=== PATIENT | female | born 1950 | race Two or more races ===

== ENCOUNTER 2024-05-09 10:49 | Inpatient (IN) | payer MEDICARE, MEDICAID, SELFPAY ==
[2024-05-09] VITALS (13 sets, daily range): BP systolic 135–175; BP diastolic 63–85; PULSE 81–95; RESP 20–27; TEMP 36.9–38; O2SAT 85–100; BMI 33.2; BMI 33.4
--- NOTE | 2024-05-09 11:04 | EDRME_ITS ---
Rapid Medical Screening Exam RME Arrival date/time: 05/09/24 10:49 74-year-old female with history of type 2 diabetes, hypertension, hyperlipidemia presents to the emergency room with a chief complaint of shortness of breath x 3 days I have greeted and performed a focused initial assessment of this patient. A co mprehensive ED assessment and evaluation of the patient, analysis of all test results, and completion of the medical decision making process will be conducted by additional ED providers. Chief Complaint: Shortness of Breath/Dyspnea Vital signs reviewed by provider: Yes
--- NOTE | 2024-05-09 11:04 | XR_ITS ---
Examination: PA lateral chest 2 views TECHNIQUE: Upright AP lateral chest 2 views Exam date and time: May 09, 2024 1118 hours Comparison April 30, 2022 INDICATIONS: Shortness breath chest pain beginning 3 days ago. FINDINGS: Moderate CHF Mild to moderate enlargement cardiac contour Prominent vascular congestion including central vascular engorgement Bilateral perihilar edema and likely superimposed pneumonia at the lung bases Moderate osteopenia IMPRESSION: Moderate CHF Suspicious for superimposed pneumonia at the lung bases
--- NOTE | 2024-05-09 11:04 | EKG_ITS ---
[facility] Test Date: 2024-05-09 Pat Name: FRANCIS DUTTONDepartment: Room: - Gender: Female Social Services Assistant: : 1950 Requested By: Rich Noriega Order Number: [id number] Reading MD: Rich Noriega Measurements Intervals [place] Rate: 86 P: 70 DE: 161 QRS: -67 QRSD: 118 T: 91 QT: 357 QTc: 428 Interpretive Statements SINUS RHYTHM WITH OCCASIONAL VENTRICULAR PREMATURE COMPLEXES LEFT AXIS DEVIATION [QRS AXIS < -30] ANTEROSEPTAL MYOCARDIAL INFARCTION , OF INDETERMINATE AGE [40+ ms Q WAVE IN V1-V4] Compared to ECG 04/30/2022 08:04:02 Ventricular premature complex(es) now present Left-axis deviation now present Left anterior fascicular block no longer present Myocardial infarct finding still present /store/S0/[id number]/ecg/[id number].pdf
[2024-05-09] MEDS: ALBUTEROL RT 2.5 MG/0.5 ML NEBU INH (11:35)
[2024-05-09] MEDS: SODIUM CHLORIDE RT SOL 0.9% 3 ML NEBU INH (11:36)
[2024-05-09 11:43] LABS: Lactate (Lactic Acid) 1.2 mMol/L (0.4-2.0)
[2024-05-09 11:53] LABS: Basophils % (Auto) 0 % (0-2.5); Eosinophils % (Auto) 0 % (0-10); Hematocrit 25.6 % (36.0-46.0); Hemoglobin 8.9 g/dL (12.0-16.0); Immature Granulocytes % (Auto) 1 % (0-0); Immature Granulocytes Auto 0.08 Thou/mm3 (0.00-0.00); Lymphocytes # (Auto) 0.6 Thou/mm3 (1.0-4.8); Lymphocytes % (Auto) 5 % (10-50); Mean Corpuscular HGB Conc 34.8 g/dl (31.0-37.0); Mean Corpuscular Hemoglobin 28.9 pg (25.0-35.0); Mean Corpuscular Volume 83 fL (80-100); Monocytes % (Auto) 8 % (0-12); Neutrophils # (Auto) 11.4 Thou/mm3 (1.8-7.7); Neutrophils % (Auto) 87 % (37-80); Nucleated Red Blood Cell % 0 /100 WBC (0); Platelet Count 225 Thou/mm3 (140-440); RDW Standard Deviation 42.3 fL (36.4-46.3); Red Blood Count 3.08 Miln/mm3 (4.00-5.20); White Blood Count 13.2 Thou/mm3 (3.6-11.0)
--- NOTE | 2024-05-09 11:54 | EDNOTE_ITS ---
ED General RME/HPI General Chief complaint: Shortness of Breath/Dyspnea Stated complaint: DYSPNEA SINCE YESTERDAY Time Seen by Provider: 05/09/24 11:49 Arrival date/time: 05/09/24 10:49 CC: Chest pain shortness of breath HPI ongoing for the past 3 days sent family over states the patient also had a fever the first day. Patient is mildly tachypneic denies a cough. Chest pain in center General Anterior. Nonradiating. RME / HPI RME / HPI narrative: 05/09/24 10:49 74-year-old female with history of type 2 diabetes, hypertension, hyperlipidemia presents to the emergency room with a chief complaint of shortness of breath x 3 days I have greeted and performed a focused initial assessment of this patient. A comprehensive ED assessment and evaluation of the patient, analysis of all test results, and completion of the medical decision making process will be conducted by additional ED providers. Related Data Home Medications ?Medication ?Instructions ?Recorded ?Confirmed empagliflozin 25 mg tablet 25 mg PO QDAY 04/30/22 11/0 04/01 (Jardiance) Previous Rx's ?Medication ?Instructions ?Recorded ferrous sulfate 325 mg (65 mg 325 mg PO QDAY #30 tabs 02/03/24 iron) tablet,delayed release amlodipine 10 mg tablet 10 mg PO QDAY #30 tabs 05/06 insulin detemir U-100 100 unit/mL 30 unit (0.3 mL) sub cut QDAY 30 05/06/24 subcutaneous solution (Levemir days #10 mL U-100 Insulin) linagliptin 5 mg tablet (Tradjenta) 5 mg PO QDAY #30 t abs 05/06/24 losartan 50 mg tablet 50 mg PO QDAY #30 tabs 05/06 metformin 1,000 mg tablet 1,000 mg PO BID 30 days #60 tabs 05/06/24 trazodone 50 mg tablet 50 mg PO HS PRN Pain #30 tab s 05/06/24 Allergies Allergy/AdvReac Type Severity Reaction Status Date / Time No Known Allergies Allergy Verified 05/09/24 10:52 Review of Systems Review of Systems Narrative Review of Systems: GEN: No fever, no chills, no weight loss EYES: No discharge, no visual changes, no pain HEENT: No ear pain, no congestion, no sore throat PULM: No shortness of breath, no cough, no congestion CV: No chest pain, no dyspnea on exertion, no palpitations GI: No nausea, no vomiting, no diarrhea, no pain, no constipation : No frequency, no urgency, no dysuria MUSC/SKEL: No joint pain, no back pain SKIN: No rash PSYCH: No hallucinations, no depression HEME/LYMPH: No easy bleeding or bruising tendencies NEURO: No weakness, no headache Past Medical History Past Medical History NEUROLOGIC: Negative Neurological Disorders CARDIAC: Positive Atherosclerotic Heart Disease and Hypertension; Negative Congestive Heart Failure RESPIRATORY: Negative Chronic Obstructive Pulmonary Disease (COPD) GASTROINTESTINAL: Negative Gastrointestinal Disorders or Colorectal Cancer GENITOURINARY: Negative Genitourinary Disorders or Renal Disease MUSCULOSKELETAL: Negative Musculoskeletal Disorders ENT: Positive Cataracts (tray.) ENDOCRINE: Positive Diabetes Mellitus Type 2; Negative Diabetes Mellitus Type 1 HEMATOLOGIC: Positive Anemia; Negative Blood Disorders OTHER HISTORY: Positive Autoimmune Disease; Negative Hospitalization, Down Syndrome, Developmental Delay, Shingles, Falls, Blood Transfusion Reaction, Chicken Pox, Cancer, Cervical Cancer, Colorectal Cancer or Lung Cancer Social History SMOKING STATUS: Never smoker SECOND HAND EXPOSURE: No SUBSTANCE USE: does not use ED Exam Narrative Physical exam: [General: In mild discomfort but not in any acute distress Head normocephalic HEENT: Eyes pupils are PERRLA EOMs are intact. Mouth pink dry membranes uvula is midline swallow symmetrical within acceptable limits Neck is supple nontender no JVD Chest equal chest rise nontender to palpation Respiratory: Clear to auscultation no wheezes crackles or rubs CV: Rate rhythm is regular no murmurs rubs or clicks Abdomen is distended secondary to body habitus soft nontender no masses positive bowel sounds all 4 quadrants Back: No CVA tenderness no spinous process tenderness from cervical spine thoracic and lumbar spine Skin: Intact no petechiae rash induration ulceration or crepitus Extremities: Moving all extremity against resistance cap refill less than 2 seconds neurosensory intact Neuro: Awake alert oriented x3 Glascow coma 15 no focal deficits] Course Quality Measures none Orders Category Date Time Status Bedside COVID-19 Antigen Test NOW Care 05/09/24 11:11 Active Bedside Influenza A&B Antigen Test NOW Care 05/09/24 11:11 Completed EKG (ED ONLY) *Do not use* NOW Care 05/09/24 11:04 Completed Insert IV NOW Care 05/09/24 11:37 Active EKG (ED Only) Stat Exams 05/09/24 11:04 Draft XR chest 2V Stat Exams 05/09/24 11:04 Completed B-Type Natriuretic Peptide Stat Lab 05/09/24 11:25 Completed Blood Culture (Lab) Stat Lab 05/09/24 11:19 Received CBC Stat Lab 05/09/24 11:25 Completed Comprehensive Metabolic Panel Stat Lab 05/09/24 11:25 Completed Lactate (Lactic Acid) Stat Lab 05/09/24 11:25 Completed Magnesium Stat Lab 05/09/24 11:25 Completed Partial Thromboplastin Time Stat Lab 05/09/24 11:25 Completed Procalcitonin Stat Lab 05/09/24 11:25 Completed Prothrombin Time with INR Stat Lab 05/09/24 11:25 Completed Troponin I Stat Lab 05/09/24 11:25 Completed Urinalysis Stat Lab 05/09/24 11:04 Ordered ALBUTEROL RT 0.5ml [Proventil Rt 0.5ml] Med 05/09/24 11:04 Discontinued 2.5 mg INH X1 ONE Sodium Chloride Rt Ana 0.9% [NS Rt Ana 0.9%] Med 05/09/24 11:04 Active 3 ml INH PRN PRN cefTRIAXone [Rocephin] 1,000 mg Med 05/09/24 12:38 Discontinued SODIUM CHLORIDE 0.9% (Popper) [Ns 0.9% (P)] 50 ml IV X1 Vital Signs Vital signs: Vital Signs Temperature 100.4 F 05/09/24 11:04 Pulse Rate 94 05/09/24 11:04 Respiratory Rate 24 H 05/09/24 11:04 Blood Pressure 175/63 H 05/09/24 11:04 Pulse Oximetry (%) 85 L 05/09/24 11:04 Oxygen Delivery Method Room Air 05/09/24 11:04 [facility] Patient data External records reviewed:: [facility] previous records and EMS form Clinical information provided by:: patient and EMS Social determinants that could affect healthcare access:: none Patient has the following chronic illnesses:: Diabetes hypertension hyperlipidemia How is presenting disease/condition affected by chronic disease/condition?: u neffected by Evaluation data The following diagnostics were reviewed and interpreted by me:: lab results, radiology exam(s) and EKG tracing(s) Lab and/or radiology exams considered but not ordered:: EKG performed at 1109 shows a ventricular rate of 89. Of a 161 QRS 118 QTc of 400 sinus rhythm left axis deviation. CBC shows a leukocytosis of 13.6 there is anemia of 8.9 and 25.6 respectively no thrombocytopenia Coags within acceptable limits CMP shows sodium 132 no other significant electrolyte imbalances other than elevated glucose of 184. No transaminitis or T. bili elevation BNP of 543. Lactic acid is negative Procalcitonin 1.03. Chest x-ray shows congestive heart failure with superimposed pneumonia. Interpretation Summary: Patient's oxygen saturation dropped to 8889% on room air after oxygen was turned off once turned back on patient promptly went to 96%. Patient continues to be remain mildly tachypneic but has no tachycardia. At this time the patient's case discussed with Dr. Zendejas resident for Dr. Hatfield because I feel this patient needs continued monitoring for diuresis and for treatment of pneumonia. The common of which I think the patient with discharge, would return in 8 to 12 hours with worsening symptoms. Dr. Zendejas is agreement with this plan. Medications Medications considered but not ordered:: None Medication administrations:: Medication Administration History Sodium Chloride (Sodium Chloride Rt Ana 0.9% 3 Ml Nebu) 3 ml INH PRN PRN PRN Reason: SOLN Stop: 06/08/24 11:03 Last Admin: 05/09/24 11:36 Dose: 3 ml Documented By: ESTELLA Discontinued Medications Albuterol (Albuterol Rt 2.5 Mg/0.5 Ml Nebu) 2.5 mg INH X1 ONE Stop: 05/09/24 11:05 Last Admin: 05/09/24 11:35 Dose: 2.5 mg Documented By: ESTELLA Ceftriaxone Sodium 1,000 mg/ (Sodium Chloride) 50 mls @ 100 mls/hr IV X1 ONE Stop: 05/09/24 13:07 Last Admin: 05/09/24 13:01 Dose: 100 mls/hr Documented By: CS None Consultations Consultation(s) initiated? (list below): No Diagnosis Differential Diagnosis ED Complaint MDM: ACS NE pneumonia CHF Most likely diagnosis given after review of the tests above:: CHF pneumonia Admission Indicated Admission indicated?: indicated Explain why admission is indicated or not indicated:: Further medical management Admission Request Was there a request for admission?: No Disposition Plan Disposition Plan: Admit Medical Decision Making Differential Diagnosis Differential Diagnosis: ACS NE pneumonia CHF Lab Data 05/09/24 11:25 05/09/24 11:25 Labs: Lab Results 05/09/24 Range/Units 11:25 WBC 13.2 H (3.6-11.0) Thou/mm3 RBC 3.08 L (4.00-5.20) Miln/mm3 Hgb 8.9 L (12.0-16.0) g/dL Hct 25.6 L (36.0-46.0) % MCV 83 (80-100) fL MCH 28.9 (25.0-35.0) pg MCHC 34.8 (31.0-37.0) g/dl RDW Std Deviation 42.3 (36.4-46.3) fL Plt Count 225 (140-440) Thou/mm3 Neut % (Auto) 87 H (37-80) % Lymph % (Auto) 5 L (10-50) % [place] % (Auto) 8 (0-12) % Eos % (Auto) 0 (0-10) % Baso % (Auto) 0 (0-2.5) % Neut # (Auto) 11.4 H (1.8-7.7) Thou/mm3 Lymph # (Auto) 0.6 L (1.0-4.8) Thou/mm3 [place] # (Auto) 1.0 H (0.0-0.8) Thou/mm3 Eos # (Auto) 0.0 (0.0-0.5) Thou/mm3 Baso # (Auto) 0.0 (0.0-0.2) Thou/mm3 Immature Gran # (Auto) 0.08 H (0.00-0.00) Thou/mm3 Absolute Nucleated RBC 0.00 (0.00-0.00) Thou/mm3 Immature Gran % 1 H (0-0) % Nucleated RBC % 0 (0) /100 WBC PT 11.4 (9.0-12.2) Seconds INR 1.0 (0.9-1.3) APTT 30.4 (22.0-36.0) Seconds Sodium 132 L (136-145) mMol/L Potassium 4.4 (3.4-5.1) mMol/L Chloride 103 (98-107) mMol/L Carbon Dioxide 20.1 (20.0-31.0) mMol/L Anion Gap 9 (7-16) BUN 23 (9-23) mg/dL Creatinine 1.0 (0.6-1.3) mg/dL Estim Creat Clear Calc 47.2 L (>60) mL/min eGFR 59 L (60 - ) See Note BUN/Creatinine Ratio 23 H (12-20) Ratio Glucose 184 H (74-106) mg/dL Calculated Osmolality 273 L (275-295) Lactic Acid 1.2 (0.4-2.0) mMol/L Calcium 9.5 (8.3-10.6) mg/dL Corrected Calcium 9.5 (8.5-10.1) mg/dL Magnesium 2.0 (1.6-2.6) mg/dL Total Bilirubin 1.0 (0.3-1.2) mg/dL AST < 8 (0-34) U/L ALT 15 (10-49) U/L Alkaline Phosphatase 58 (46-116) U/L Troponin I < 0.020 (0.0-0.045) ng/mL B-Natriuretic Peptide 543 H* (0-100) pg/mL Total Protein 7.4 (5.7-8.2) gm/dL Albumin 4.0 (3.4-4.8) gm/dL Globulin 3.4 (2.3-3.5) gm/dL Albumin/Globulin Ratio 1.2 (1.2-2.2) Procalcitonin 1.03 H (0.0-0.49) ng/ml Discharge Plan Plan Patient Disposition: Other Care w/in Hosp ([facility]) Prescriptions/Referrals Prescriptions/Med Rec: No Action ferrous sulfate 325 mg (65 mg iron) tablet,delayed release (DR/EC) 325 mg PO QDAY Qty: 30 0RF Levemir U-100 Insulin 100 unit/mL solution 30 unit SUBCUT QDAY 30 Days Qty: 10 2RF Rx Instructions: Deliver to [facility] in [place] amlodipine 10 mg tablet 10 mg PO QDAY Qty: 30 0RF Tradjenta 5 mg tablet 5 mg PO QDAY Qty: 30 0RF losartan 50 mg tablet 50 mg PO QDAY Qty: 30 0RF trazodone 50 mg tablet 50 mg PO HS PRN (Reason: Pain) Qty: 30 0RF metformin 1,000 mg tablet 1,000 mg PO BID 30 Days Qty: 60 0RF Jardiance 25 mg Tablet 25 mg PO QDAY Referrals: No Primary/Family,Physician [Primary Care Provider] - In 1 week Problem List Clinical Impression: Shortness of breath, Pneumonia, CHF (congestive heart failure) Patient/Caregiver Discharge Instructions Print Language: Kiswahili Stand Alone Forms: Zulma Award Info., Patient Portal Info Letter PA/STAGE SETTINGS PAINTER Supervising Physician PA/STAGE SETTINGS PAINTER Supervising Physician: Elkin Hardin ENP
[2024-05-09 12:05] LABS: Partial Thromboplastin Time 30.4 Seconds (22.0-36.0); Prothrombin Time 11.4 Seconds (9.0-12.2)
[2024-05-09 12:11] LABS: B-Type Natriuretic Peptide 543 pg/mL (0-100)
[2024-05-09 12:19] LABS: Alanine Aminotransferase 15 U/L (10-49); Albumin/Globulin Ratio 1.2 (1.2-2.2); Alkaline Phosphatase 58 U/L (46-116); Anion Gap 9 (7-16); Aspartate Amino Transferase < 8 U/L (0-34); BUN/Creatinine Ratio 23 Ratio (12-20); Blood Urea Nitrogen 23 mg/dL (9-23); Calcium 9.5 mg/dL (8.3-10.6); Calcium (Corrected) 9.5 mg/dL (8.5-10.1); Carbon Dioxide 20.1 mMol/L (20.0-31.0); Chloride 103 mMol/L (98-107); Estimated Creatinine Clearance 47.2 mL/min (>60); Globulin 3.4 gm/dL (2.3-3.5); Glucose 184 mg/dL (74-106); Osmolality,Calculated 273 (275-295); Potassium 4.4 mMol/L (3.4-5.1); Procalcitonin 1.03 ng/ml (0.0-0.49); Sodium 132 mMol/L (136-145); Total Protein 7.4 gm/dL (5.7-8.2); Troponin I < 0.020 ng/mL (0.0-0.045); eGFR 59 See Note
[2024-05-09] MEDS: cefTRIAXone 1,000 MG in SODIUM CHLORIDE 0.9% (Popper) 50 ML 100 MG IV (13:01)
[2024-05-09] MEDS: ALBUTEROL/IPRATROPIUM (Duoneb) RT SOL 3 ML NEBU INH ×3 (14:32→23:49)
--- NOTE | 2024-05-09 15:42 | ESHP_ITS ---
<Statement entered by Matthew Reyna MD - 05/14/24 21:52> I reviewed above note and agree with findings and plans. I have also personally examined the patient with medicine team and went over assessment and plan with medical team including internet marketing assistant and resident physician. <Statement entered by Gregoria Donahue MD - 05/10/24 00:48> Patient was seen and examined by me personally. I have directly supervised and reviewed the above documentation by the team resident and agree with its findings with any exceptions or additional findings as below. Plan of care was discussed with the attending, Dr. Reyna. Patient is a 74-year-old female with past medical history of hypertension, type 2 diabetes, hyperlipidemia, and iron deficiency anemia who presented to the ED on 05/10/2024 due to difficulty breathing for the past 3 days. Patient endorses pleuritic chest pain and cough as well as orthopnea. There is no documented history of CHF and in the chart last echo was done 2 years ago which showed normal function with EF of 55-60% but moderate pulmonary hypertension. BNP is elevated today at 543 and CXR is indicative of pulmonary vascular congestion as well as superimposed pneumonia. Procal is elevated at 1.03, WBC 13. Will order echo, have strict I&Os, fluid restriction of 1500 ml. Start IV ceftriaxone and azithromycin for community acquired pneumonia as well as DuoNebs. Will start PO Lasix starting at 20 mg daily. Gregoria Donahue, PGY-2 Documentation for date of: 05/09/24 HPI History of Present Illness Chief complaint: shortness of breath for 3 days History of present illness: The patient is a 74-year-old female with a previous medical history of hypertension, type 2 diabetes, hyperlipidemia, iron deficiency anemia. Presented to the emergency room with chief complaint of shortness of breath and cough for 3 days. She reported that it is especially hard for her to breathe when lying down, But she experienced shortness of breath in all position, non- irradiating chest pain exacerbaion with breathing. She denies headache, abdominal pain, sick contacts, heart diseases, heart surgery and following up with email marketing executive. In the ED she was tachypneic, blood pressure 175/63, saturating well on 4 L room air. Labs showed leukocytosis 13.2, hemoglobin 8.9, creatinine 1.0, GFR 59, BNP 543, troponin I negative, procalcitonin 1.03. Chest x-ray showed moderate CHF, suspicion for superimposed pneumonia. EKG unremarkable, sinus rhythm. She was started on ceftriaxone and albuterol inhalations. She was admitted for acute hypoxic respiratory failure due to CAP versus heart failure exacerbation. Surgical history: Denies recent surgeries Allergies: Denies allergies Review of Systems Review of Systems Systems Reviewed: All systems reviewed, normal except as documented Narrative Review of Systems: GEN: No fever, no chills, no weight loss EYES: No discharge, no visual changes, no pain HEENT: No ear pain, no congestion, no sore throat PULM: Reports shortness of breath, cough, no congestion CV: Reports chest pain, no dyspnea on exertion, no palpitations GI: No nausea, no vomiting, no diarrhea, no pain, no constipation : No frequency, no urgency, no dysuria MUSC/SKEL: No joint pain, reports back pain SKIN: No rash PSYCH: No hallucinations, no depression HEME/LYMPH: No easy bleeding or bruising tendencies NEURO: No weakness, no headache Past Medical History Past Medical History NEUROLOGIC: Negative Neurological Disorders CARDIAC: Positive Atherosclerotic Heart Disease and Hypertension; Negative Congestive Heart Failure RESPIRATORY: Negative Chronic Obstructive Pulmonary Disease (COPD) GASTROINTESTINAL: Negative Gastrointestinal Disorders or Colorectal Cancer GENITOURINARY: Negative Genitourinary Disorders or Renal Disease MUSCULOSKELETAL: Negative Musculoskeletal Disorders ENT: Positive Cataracts (tray.) ENDOCRINE: Positive Diabetes Mellitus Type 2; Negative Diabetes Mellitus Type 1 HEMATOLOGIC: Positive Anemia; Negative Blood Disorders OTHER HISTORY: Positive Autoimmune Disease; Negative Hospitalization, Down Syndrome, Developmental Delay, Shingles, Falls, Blood Transfusion Reaction, Chicken Pox, Cancer, Cervical Cancer, Colorectal Cancer or Lung Cancer Social History SMOKING STATUS: Never smoker SECOND HAND EXPOSURE: No SUBSTANCE USE: does not use Exam Vital Signs Temp Pulse Resp BP Pulse Ox O2 Del Method O2 Flow Rate 98.4 F 81 20 135/76 H 93 L Room Air 4 05/09/24 14:23 05/09/24 15:00 05/09/24 15:00 05/09/24 14:23 05/09/24 15:00 05/09/24 14:23 05/09/24 15:00 Narrative Exam Physical Exam General: Awake, tachypneic. Able to say full sentences. Conversational and non- toxic appearing. HEENT: Normocephalic, atraumatic, mucous membranes moist. Heart: Regular rate and rhythm, no murmurs. Lungs: Diffuse rhonchi bilaterally. Abdomen: Soft, nondistended, nontender, positive bowel sounds. ?No guarding or rebound tenderness. Neurologic: Alert and oriented x3, no gross neurological deficit, and patient able to move all 4 extremities. Extremities: No edema. Skin: No rash or ecchymoses. Results: Labs 05/09/24 11:25 05/09/24 11:25 Labs: Short CBC 05/09/24 Range/Units 11:25 WBC 13.2 H (3.6-11.0) Thou/mm3 Hgb 8.9 L (12.0-16.0) g/dL Hct 25.6 L (36.0-46.0) % Plt Count 225 (140-440) Thou/mm3 BMP 05/09/24 11:25 Sodium 132 L Potassium 4.4 Chloride 103 Carbon Dioxide 20.1 BUN 23 Creatinine 1.0 Glucose 184 H Calcium 9.5 Cardiac Enzymes 05/09/24 Range/Units 11:25 Troponin I < 0.020 (0.0-0.045) ng/mL Liver Function 05/09/24 Range/Units 11:25 Total Bilirubin 1.0 (0.3-1.2) mg/dL AST < 8 (0-34) U/L ALT 15 (10-49) U/L Alkaline Phosphatase 58 (46-116) U/L Albumin 4.0 (3.4-4.8) gm/dL Quality Measures Quality Measures VTE prophylaxis Advance care planning discussed with:: patient and child Medications Home Medications and Allergies Home Medications ?Medication ?Instructions ?Recorded ?Confirmed ?Type empagliflozin 25 mg tablet 25 mg PO QDAY 04/30/22 1104/01 History (Jardiance) Allergies Allergy/AdvReac Type Severity Reaction Status Date / Time No Known Allergies Allergy Verified 05/09/24 10:52 Visit Medications Acetaminophen (Acetaminophen 325 Mg Tablet) 650 mg PO Q6H PRN PRN Reason: Fever >100.3 or pain 1-3 Stop: 06/08/24 14:20 Albuterol/Ipratropium (Albuterol/Ipratropium (Duoneb) Rt Ana 3 Ml Nebu) 3 ml INH Q4HRRT SAVANNA Stop: 06/08/24 14:59 Last Admin: 05/09/24 14:32 Dose: 3 ml Dextrose (Dextrose 50%-Water Inj 50 Ml Syringe) 25 ml IV Q15MIN PRN PRN Reason: BG 50-70 responsive npo pt Stop: 06/08/24 15:36 Dextrose (Dextrose 50%-Water Inj 50 Ml Syringe) 50 ml IV Q15MIN PRN PRN Reason: BG <50 OR BG <70 & pt unresponsive Stop: 06/08/24 15:36 Enoxaparin Sodium (Enoxaparin Sod Inj 40 Mg/0.4 Ml Syringe) 40 mg SC QDAY SAVANNA Stop: 05/24/24 08:59 Furosemide (Furosemide 20 Mg Tablet) 20 mg PO QAM [facility] Stop: 06/08/24 14:29 Glucagon (Glucagon Inj 1 Mg Vial) 1 mg IM Q15MIN PRN PRN Reason: BG <70, and no IV access Azithromycin 500 mg/ Sodium (Chloride) 250 mls @ 250 mls/hr IV QDAY [facility] Stop: 05/17/24 08:59 Ceftriaxone Sodium 1,000 mg/ (Sodium Chloride) 50 mls @ 100 mls/hr IV QDAY SAVANNA Stop: 05/17/24 08:59 Azithromycin 500 mg/ Sodium (Chloride) 250 mls @ 250 mls/hr IV X1 ONE Stop: 05/09/24 15:44 Insulin Human Lispro (Insulin Lispro (Admelog) 1 Unit/0.01 Ml Unit) 0 unit SC AC [facility]; Protocol Stop: 06/08/24 16:59 Ondansetron HCl (Ondansetron Inj 2 Mg/Ml Inj 2 Ml) 4 mg IV Q6H PRN; Protocol PRN Reason: NAUSEA OR VOMITING Stop: 06/08/24 14:20 Oxycodone/Acetaminophen (Oxycodone/Apap 5/325 Tablet) 1 tab PO Q6H PRN PRN Reason: PAIN SCALE 4-6 (Moderate Stop: 05/14/24 14:20 Sennosides (Senna Tablet) 1 tab PO QDAY PRN; Protocol PRN Reason: constipation Stop: 06/08/24 14:20 Sodium Chloride (Sodium Chloride Rt Ana 0.9% 3 Ml Nebu) 3 ml INH PRN PRN PRN Reason: SOLN Stop: 06/08/24 11:03 Last Admin: 05/09/24 11:36 Dose: 3 ml Discontinued Medications Albuterol (Albuterol Rt 2.5 Mg/0.5 Ml Nebu) 2.5 mg INH X1 ONE Stop: 05/09/24 11:05 Last Admin: 05/09/24 11:35 Dose: 2.5 mg Ceftriaxone Sodium 1,000 mg/ (Sodium Chloride) 50 mls @ 100 mls/hr IV X1 ONE Stop: 05/09/24 13:07 Last Admin: 05/09/24 13:01 Dose: 100 mls/hr Ceftriaxone Sodium 1,000 mg/ (Sodium Chloride) 50 mls @ 100 mls/hr IV QDAY SAVANNA Stop: 05/16/24 14:30 Assessment & Plan Plan The patient is a 74-year-old female with a previous medical history of hypertension, type 2 diabetes, hyperlipidemia, iron deficiency anemia. Presented to the emergency room with chief complaint of shortness of breath and cough for 3 days. She was admitted for AHRF CAP vs CHF exacerbation. #Acute hypoxic respiratory failure #Community-acquired pneumonia versus CHF exacerbation Patient reports feeling short of breath for 3 days. CXR showed signs of CHF and pneumonia. ProCal 1.03. EKG unremarkable and troponin I negative. Plan: ?Ceftriaxone 1 g daily [05/09?current] ? Azithromycin 500 mg daily [05/09?current] ? DuoNeb inhalations every 6 hours as needed ? Furosemide 20 mg p.o. daily ? Strict I's and O's ?Fluid restriction 1500 cc daily ?Echo ordered #Chronic iron deficiency anemia Plan: - monitor daily CBC - transfuse if Hgb <7 - follow-up outpatient #T2DM Plan: - home oral medication ore on hold - ISS with Accuchecks #Hypertension - BP medications on hold for now #Lower back pain Plan: - pain control as needed Health maintenance: FEN: cardiac diet with fluid restriction DVT prophylaxis: lovenox sc GI prophylaxis: none Dispo: med tele CODE STATUS: Full code Plan of care discussed with attending Dr. Reyna, PGY-[address] Donahue and PGY-[address] Gaxiola. Aida Esparza MD, PGY 1.
--- NOTE | 2024-05-09 16:24 | PC.SS ---
Initial assessment: this is 74 year old female who comes from home. Patient appeared alert and oriented to person, place and situation. Patient is [place] speaking. The patient was able to confirm home demographic information. Patient reports she lives at home, alone. The patient assigned her daughter, Gypsy Zayas as her emergency contact. The patient informs prior to the weekend she was independent with ADL's. The patient denies use of DME in the home. Patient receiving oxygen in the ED, however denies having home oxygen. Patient reports being followed by Dr. Ivonne Briseno for primary care in [place]. Patient reports being diabetic. The patient would like to return home upon discharge. Patient informs she may need transportation arranged for her upon discharge. D/c plan: Home Next of kin: daughterGypsy
--- NOTE | 2024-05-09 16:41 | PC.RT ---
Pt had increase WOB and SOB. Could not collect sputum at the time.
[2024-05-09] MEDS: Furosemide 20 MG TABLET PO (18:04)
[2024-05-09] MEDS: AZITHROMYCIN INJ 500 MG in SODIUM CHLORIDE 0.9% 250 ML 250 ML 250 MG IV (18:04)
[2024-05-09] MEDS: INSULIN LISPRO (AdmeLOG) 1 UNIT/0.01 ML UNIT SC (18:04)
[2024-05-10] VITALS (20 sets, daily range): BP systolic 134–169; BP diastolic 67–93; PULSE 76–106; RESP 18–32; TEMP 36.4–37.3; O2SAT 91–100
[2024-05-10] MEDS: MELATONIN 3 MG TABLET PO ×2 (01:18→21:24)
[2024-05-10] MEDS: FUROSEMIDE INJ 10 MG/ML 4ML VIAL 40 MG IVP ×2 (01:41→17:22)
[2024-05-10] MEDS: ALBUTEROL/IPRATROPIUM (Duoneb) RT SOL 3 ML NEBU INH ×6 (02:56→22:04)
[2024-05-10] MEDS: ACETAMINOPHEN 325 MG TABLET 650 MG PO (03:22)
--- NOTE | 2024-05-10 03:28 | PC.NURSE ---
accessed pt's chart to assist main RN.
--- NOTE | 2024-05-10 04:21 | PC.NURSE ---
Dr person notified of pt complaint of headache, sweatyness, thirstyness, and BS 227. No new orders at this time.
[2024-05-10 04:23] LABS: Base Excess -1 (-3-3); HCO3 23 mEq/L (20-26); Inspired Oxygen, FIO2 75 %; O2 Saturation 94 % (91-98); PCO2 32 mmHg (32.0-48.0); PO2 64 mmHg (83-108); pH, Arterial 7.46 (7.35-7.45)
[2024-05-10 04:25] LABS: Allen Test Performed/OK; Puncture Site Right Radial
[2024-05-10 05:08] LABS: Lactate (Lactic Acid) 0.8 mMol/L (0.4-2.0)
[2024-05-10 05:21] LABS: Basophils % (Auto) 0 % (0-2.5); Eosinophils % (Auto) 0 % (0-10); Hematocrit 23.5 % (36.0-46.0); Immature Granulocytes % (Auto) 1 % (0-0); Immature Granulocytes Auto 0.05 Thou/mm3 (0.00-0.00); Lymphocytes # (Auto) 0.4 Thou/mm3 (1.0-4.8); Lymphocytes % (Auto) 4 % (10-50); Mean Corpuscular Hemoglobin 28.6 pg (25.0-35.0); Mean Corpuscular Volume 84 fL (80-100); Monocytes # (Auto) 0.9 Thou/mm3 (0.0-0.8); Monocytes % (Auto) 9 % (0-12); Neutrophils # (Auto) 8.9 Thou/mm3 (1.8-7.7); Neutrophils % (Auto) 87 % (37-80); Nucleated Red Blood Cell % 0 /100 WBC (0); Platelet Count 231 Thou/mm3 (140-440); White Blood Count 10.2 Thou/mm3 (3.6-11.0)
[2024-05-10 05:46] LABS: Collection Type, Urine Clean Catch; Squamous Epithelial Cell,Urine 0 /hpf (0-5)
[2024-05-10 05:50] LABS: Alanine Aminotransferase 14 U/L (10-49); Albumin, Serum 3.8 gm/dL (3.4-4.8); Albumin/Globulin Ratio 1.2 (1.2-2.2); Alkaline Phosphatase 60 U/L (46-116); Anion Gap 10 (7-16); Aspartate Amino Transferase 14 U/L (0-34); BUN/Creatinine Ratio 22 Ratio (12-20); Bilirubin,Total 0.8 mg/dL (0.3-1.2); Blood Urea Nitrogen 22 mg/dL (9-23); Calcium 9.1 mg/dL (8.3-10.6); Calcium (Corrected) 9.3 mg/dL (8.5-10.1); Carbon Dioxide 21.1 mMol/L (20.0-31.0); Chloride 105 mMol/L (98-107); Estimated Creatinine Clearance 47.4 mL/min (>60); Globulin 3.2 gm/dL (2.3-3.5); Glucose 214 mg/dL (74-106); Osmolality,Calculated 281 (275-295); Phosphorous 2.9 mg/dL (2.4-5.1); Sodium 136 mMol/L (136-145); eGFR 59 See Note
[2024-05-10 06:18] LABS: Bilirubin,Urine Negative (Negative); Blood,Urine Negative (Negative); Clarity,Urine Clear (Clear/Hazy); Color,Urine Lt-Yellow (Lt Yel-Yel); Glucose, Urine 4+ (Negative); Ketones,Urine Negative (Negative); Leukocyte Esterase,Urine Negative (Negative); Nitrite,Urine Negative (Negative); PH,Urine 5.5 (5.0-7.0); Protein,Urine 1+ (Neg - Trace); RBC,Urine 1 /hpf (0-3); Specific Gravity,Urine 1.011 (1.001-1.035); Urobilinogen,Urine Negative mg/dL (0.0-1.0); WBC,Urine < 1 /hpf (0-5)
[2024-05-10] MEDS: INSULIN LISPRO (AdmeLOG) 1 UNIT/0.01 ML UNIT SC ×3 (07:39→16:24)
--- NOTE | 2024-05-10 08:29 | XR_ITS ---
Examination: AP chest single view Technique one AP portable upright chest single view Exam date and time: 2024 0903 hours Comparison May 09, 2024 INDICATIONS: Hypoxia today. FINDINGS: Prominent bilateral pneumonia again noted At least mild associated heart failure with cardiomegaly and prominent vascular congestion Significant osteopenia IMPRESSION: Prominent bilateral pneumonia At least mild associated heart failure
[2024-05-10] MEDS: ENOXAPARIN SOD INJ 40 MG/0.4 ML SYRINGE SC (08:39)
[2024-05-10] MEDS: cefTRIAXone 1,000 MG in SODIUM CHLORIDE 0.9% (Popper) 50 ML 100 MG IV (08:39)
[2024-05-10] MEDS: Furosemide 40 MG TABLET PO (08:39)
--- NOTE | 2024-05-10 10:39 | PC.PT ---
Attempt to initiate PT evaluation at 1030. Patient was switched to HFNC this morning. Patient is not medically stable to do Physical Therapy today. Will try tomorrow. RN made aware.
[2024-05-10] MEDS: PIPER/TAZO INJ 3.375 GM in SODIUM CHLORIDE 0.9% (Popper) 50 ML IV ×2 (11:11→21:24)
[2024-05-10] MEDS: VANCOMYCIN/D5W 1,250 MG IVPB 250 ML 120 MG IV (11:11)
[2024-05-10 11:22] LABS: Base Excess 0 (-3-3); HCO3 24 mEq/L (20-26); Inspired Oxygen, FIO2 100 %; O2 Saturation 99 % (91-98); PCO2 35 mmHg (32.0-48.0); PO2 102 mmHg (83-108); Puncture Site Right Radial; pH, Arterial 7.44 (7.35-7.45)
[2024-05-10 11:23] LABS: Allen Test Performed/OK
[2024-05-10] MEDS: KETOROLAC INJ 30 MG/ML VIAL 15 MG IVP (12:38)
--- NOTE | 2024-05-10 12:55 | ESPR_ITS ---
<Statement entered by Gregoria Donahue MD - 05/10/24 23:54> Patient was seen and examined by me personally. I have directly supervised and reviewed documentation by the team resident and agree with its findings with any exceptions or additional findings as below. Plan of care was discussed with the attending, Dr. Ambrosio. Overnight, the patient's oxygen requirements increased significantly, requiring Hi-Flow at 29L and 85% FiO2 at first to maintain saturation >90. She was given Lasix 40 mg IV by night team. ABG was normal pH but showed mild hypoxia. This morning patient was examined, she was awake however appeared short of breath. Repeat CXR this morning showed worsening bilateral infiltrates suggestive of a pulmonary edema. Therefore patient was started on BiPAP and Lasix dose was increased to 40 mg BID. She is continuing on strict I&Os and fluid restriction 1500 ml. Preliminary report from technical rep showed normal EF but increased RVSP of 66 and signs of pulmonary hypertension. Patient will receive break from BiPAP and able to resume dinner, however will have BiPAP available prn over night. Patient updates were signed out to the night team who will continue to closely follow. Gregoria Donahue, PGY-2 Documentation for date of: 05/10/24 Subjective Subjective Interval history: Patient was seen and examined by the bedside. Overnight had an episode of respiratory distress, was saturating in the low 90s and was switched to the high flow nasal cannula, settings of 22 L at FiO2 75%. ABGs done at that time showed signs of acute hypoxia. She was also given furosemide 40 mg once IV. Urine output was 0.5 L. Today in the a.m. she continues to have respiratory distress, tachypneic, saturated in the low 90s. She was switched to BiPAP, Lasix was increased to 40 mg twice daily. Preliminary echo study showed RVSP of 66 and signs of pulmonary hypertension. Repeat ABG was normal and was done on 100% FiO2. Exam Vital Signs Temp Pulse Resp BP Pulse Ox O2 Del Method O2 Flow Rate 98.0 F 106 H 32 H 134/72 H 91 L High Flow Nasal Cannula 05/10/24 07:37 05/10/24 10:37 05/10/24 10:37 05/10/24 08:39 05/10/24 10:37 05/10/24 07:37 05/10/24 10:37 FiO2 75 05/10/24 10:37 Narrative Exam Gen: Appears in moderate respiratory distress, able to have conversation, tachypneic. HEENT: NCAT, PERRLA, EOMI, MMM, anicteric conjunctivae. CVS: normal S1 and S2. RRR. No M/R/G. Resp: Bilateral mild rhonchi. Abd: soft, non-tender, non-distended. BS+ in all 4 quadrants. MSK: Good ROM in BUE & BLE. 1+ pitting ankle edema, no rash. Neuro: CN II-XII grossly intact. Strength 5/5 in BUE & BLE. Alert and oriented x3. Psych: appropriate mood and affect. Objective Labs 05/10/24 04:34 05/10/24 04:34 Labs: Laboratory Results - last 24 hr 05/10/24 05/10/24 05/10/24 04:16 04:34 04:45 WBC 10.2 RBC 2.80 L Hgb 8.0 L Hct 23.5 L MCV 84 MCH 28.6 MCHC 34.0 RDW Std Deviation 43.0 Plt Count 231 Neut % (Auto) 87 H Lymph % (Auto) 4 L Eaton % (Auto) 9 Eos % (Auto) 0 Baso % (Auto) 0 Neut # (Auto) 8.9 H Lymph # (Auto) 0.4 L Eaton # (Auto) 0.9 H Eos # (Auto) 0.0 Baso # (Auto) 0.0 Immature Gran # (Auto) 0.05 H Absolute Nucleated RBC 0.00 Immature Gran % 1 H Nucleated RBC % 0 Puncture Site Right Radial ABG pH 7.46 H ABG pCO2 32 ABG pO2 64 L ABG HCO3 23 ABG O2 Saturation 94 ABG Base Excess -1 FiO2 75 Sodium 136 Potassium 4.0 Chloride 105 Carbon Dioxide 21.1 Anion Gap 10 BUN 22 Creatinine 1.0 Estim Creat Clear Calc 47.4 L eGFR 59 L BUN/Creatinine Ratio 22 H Glucose 214 H Calculated Osmolality 281 Lactic Acid 0.8 Calcium 9.1 Corrected Calcium 9.3 Phosphorus 2.9 Magnesium 2.0 Total Bilirubin 0.8 AST 14 ALT 14 Alkaline Phosphatase 60 Total Protein 7.0 Albumin 3.8 Globulin 3.2 Albumin/Globulin Ratio 1.2 Ur Collection Type Clean Catch Urine Color Lt-Yellow Urine Clarity Clear Urine pH 5.5 Ur Specific Raymond 1.011 Urine Protein 1+ A Urine Glucose (UA) 4+ A Urine Ketones Negative Urine Blood Negative Urine Nitrite Negative Urine Bilirubin Negative Urine Urobilinogen (Auto) Negative Ur Leukocyte Esterase Negative Urine RBC 1 Urine WBC < 1 Ur Squamous Epith Cells 0 Urine Bacteria None 05/10/24 11:05 WBC RBC Hgb Hct MCV MCH MCHC RDW Std Deviation Plt Count Neut % (Auto) Lymph % (Auto) Eaton % (Auto) Eos % (Auto) Baso % (Auto) Neut # (Auto) Lymph # (Auto) Eaton # (Auto) Eos # (Auto) Baso # (Auto) Immature Gran # (Auto) Absolute Nucleated RBC Immature Gran % Nucleated RBC % Puncture Site Right Radial ABG pH 7.44 ABG pCO2 35 ABG pO2 102 D ABG HCO3 24 ABG O2 Saturation 99 H ABG Base Excess 0 FiO2 100 Sodium Potassium Chloride Carbon Dioxide Anion Gap BUN Creatinine Estim Creat Clear Calc eGFR BUN/Creatinine Ratio Glucose Calculated Osmolality Lactic Acid Calcium Corrected Calcium Phosphorus Magnesium Total Bilirubin AST ALT Alkaline Phosphatase Total Protein Albumin Globulin Albumin/Globulin Ratio Ur Collection Type Urine Color Urine Clarity Urine pH Ur Specific Raymond Urine Protein Urine Glucose (UA) Urine Ketones Urine Blood Urine Nitrite Urine Bilirubin Urine Urobilinogen (Auto) Ur Leukocyte Esterase Urine RBC Urine WBC Ur Squamous Epith Cells Urine Bacteria ABG Interpretation ABG results: 05/10/24 05/10/24 04:16 11:05 ABG pH 7.46 H 7.44 ABG pCO2 32 35 ABG pO2 64 L 102 D ABG HCO3 23 24 ABG O2 Saturation 94 99 H ABG Base Excess -1 0 Quality Measures Quality Measures VTE prophylaxis Advance care planning discussed with:: patient and child Assessment & Plan Assessment Current Active Medications: Generic Name Dose Route Start Last Admin Trade Name Freq PRN Reason Stop Dose Admin Acetaminophen 650 mg 05/09/24 14:21 05/10/24 03:22 Acetaminophen 325 Mg Tablet PO 06/08/24 14:20 650 mg Q6H PRN Administration Fever >100.3 or pain 1-3 Protocol Albuterol/Ipratropium 3 ml 05/09/24 15:00 05/10/24 10:22 Albuterol/Ipratropium (Duoneb) Rt Ana 3 Ml Nebu INH 06/08/24 14:59 3 ml Q4HRRT SAVANNA Administration Dextrose 25 ml 05/09/24 15:37 Dextrose 50%-Water Inj 50 Ml Syringe IV 06/08/24 15:36 Q15MIN PRN BG 50-70 responsive npo pt Dextrose 50 ml 05/09/24 15:37 Dextrose 50%-Water Inj 50 Ml Syringe IV 06/08/24 15:36 Q15MIN PRN BG <50 OR BG <70 & pt unresponsive Enoxaparin Sodium 40 mg 05/10/24 09:00 05/10/24 08:39 Enoxaparin Sod Inj 40 Mg/0.4 Ml Syringe SC 05/24/24 08:59 40 mg QDAY SAVANNA Administration Furosemide 40 mg 05/10/24 18:00 Furosemide Inj 10 Mg/Ml 4ml Vial IVP 06/09/24 17:59 BIDD SAVANNA Glucagon 1 mg 05/09/24 15:37 Glucagon Inj 1 Mg Vial IM Q15MIN PRN BG <70, and no IV access Azithromycin 500 mg/ Sodium 250 mls @ 250 mls/hr 05/09/24 17:45 05/09/24 18:04 Chloride IV 05/16/24 17:44 250 mls/hr QDAY@2100 SAVANNA Administration Piperacillin Sod/Tazobactam 50 mls @ 12.5 mls/hr 05/10/24 22:00 Sod 3.375 gm/ Sodium Chloride IV 05/17/24 21:59 Q8HR SAVANNA Vancomycin/Sodium Chloride 200 mls @ 120 mls/hr 05/11/24 10:00 Vancomycin/Ns 1 Gm Ivpb IV 05/18/24 09:59 Q24H [facility] Insulin Human Lispro 0 unit 05/09/24 17:00 05/10/24 11:36 Insulin Lispro (Admelog) 1 Unit/0.01 Ml Unit SC 06/08/24 16:59 4 unit AC SAVANNA Administration Protocol Ketorolac Tromethamine 15 mg 05/10/24 12:22 05/10/24 12:38 Ketorolac Inj 30 Mg/Ml Vial IVP 05/15/24 12:21 15 mg Q6HR PRN Administration Pain 1-10 Melatonin 3 mg 05/10/24 00:55 05/10/24 01:18 Melatonin 3 Mg Tablet PO 06/09/24 00:54 3 mg HS SAVANNA Administration Ondansetron HCl 4 mg 05/09/24 14:21 Ondansetron Inj 2 Mg/Ml Inj 2 Ml IV 06/08/24 14:20 Q6H PRN NAUSEA OR VOMITING Protocol Oxycodone/Acetaminophen 1 tab 05/09/24 14:21 Oxycodone/Apap 5/325 Tablet PO 05/14/24 14:20 Q6H PRN PAIN SCALE 4-6 (Moderate Protocol Pharmacy Consult 1 each 05/10/24 10:27 Vancomycin Pharmacy To Dose 1 Each Each IV 06/09/24 10:26 QDAY PRN CONSULT Sennosides 1 tab 05/09/24 14:21 Senna Tablet PO 06/08/24 14:20 QDAY PRN constipation Protocol Sodium Chloride 3 ml 05/09/24 11:04 05/09/24 11:36 Sodium Chloride Rt Ana 0.9% 3 Ml Nebu INH 06/08/24 11:03 3 ml PRN PRN Administration SOLN Plan The patient is a 74-year-old female with a previous medical history of hypertension, type 2 diabetes, hyperlipidemia, iron deficiency anemia. Presented to the emergency room with chief complaint of shortness of breath and cough for 3 days. She was admitted for AHRF CAP vs CHF exacerbation. #Acute hypoxic respiratory failure #Pulmonary hypertension versus CHF exacerbation Patient reports feeling short of breath for 3 days. CXR showed signs of CHF and pneumonia. ProCal 1.03. EKG unremarkable and troponin I negative. Plan: ? Furosemide 40 mg IV BID ? Strict I's and O's ?Fluid restriction 1500 cc daily ?Echo ordered #Community-acquired pneumonia ?Ceftriaxone 1 g daily [05/09?current] ? Azithromycin 500 mg daily [05/09?current] ? DuoNeb inhalations every 6 hours as needed - Cocci IgM pending - sputum culture pending - BC preliminary negative #Chronic iron deficiency anemia Plan: - monitor daily CBC - transfuse if Hgb <7 - follow-up outpatient #T2DM Plan: - home oral medication ore on hold - ISS with Accuchecks #Hypertension - BP medications on hold for now #Lower back pain Plan: - pain control as needed Health maintenance: FEN: cardiac diet with fluid restriction DVT prophylaxis: lovenox sc GI prophylaxis: none Dispo: med tele CODE STATUS: Full code Plan of care discussed with attending Dr. Ambrosio, PGY-[address] Donahue and PGY-[address] Gaxiola. Aida Esparza MD, PGY 1. Attending Provider Attestation/Addendum I have examined the patient, reviewed labs and imaging findings, discussed the case with the resident(s), and reviewed entered orders. I agree with the plan of care as outlined in this note, with these additional summaries/recommendations: Patient seen at bedside. No acute overnight events. This morning patient had worsening shortness of breath and tachypnea. Patient was placed on BiPAP. Patient admitted for acute hypoxic respiratory failure most likely secondary to CHF +/- superimposed bacterial pneumonia. We will continue aggressive diuresis. Chest x-ray on admission was suspicious for bilateral perihilar edema and for this reason patient was placed on BiPAP today. Pending echocardiogram to start goal-directed medical therapy. Continue IV antibiotics for bacterial pneumonia. Cultures pending and will follow-up when available. Continue insulin sliding scale for diabetes mellitus type 2. Continue pain management for chronic lower back pain. Patient updated on the plan and in agreement. Repeat hematology and chemistry panel in AM. Dr. Daily MD
[2024-05-10 13:15] LABS: Cocci Serology, IgM Negative (Negative)
--- NOTE | 2024-05-10 16:50 | PC.NURSE ---
Attempted to do Med rec. Daughter will bring all meds tomorrow. --Juan
[2024-05-10] MEDS: AZITHROMYCIN INJ 500 MG in SODIUM CHLORIDE 0.9% 250 ML 250 ML 250 MG IV (21:07)
[2024-05-10] MEDS: ONDANSETRON INJ 2 MG/ML INJ 2 ML 4 MG IV (21:21)
[2024-05-11] VITALS (19 sets, daily range): BP systolic 139–155; BP diastolic 70–83; PULSE 78–95; RESP 16–30; TEMP 36.4–37.1; O2SAT 92–100
--- NOTE | 2024-05-11 03:11 | PC.NURSE ---
[facility] downtime from [id number].
[2024-05-11] MEDS: ALBUTEROL/IPRATROPIUM (Duoneb) RT SOL 3 ML NEBU INH ×4 (03:21→14:26)
[2024-05-11] MEDS: PIPER/TAZO INJ 3.375 GM in SODIUM CHLORIDE 0.9% (Popper) 50 ML IV ×3 (05:26→22:35)
[2024-05-11] MEDS: FUROSEMIDE INJ 10 MG/ML 4ML VIAL 40 MG IVP ×2 (05:26→22:18)
[2024-05-11 05:28] LABS: Basophils % (Auto) 1 % (0-2.5); Eosinophils # (Auto) 0.2 Thou/mm3 (0.0-0.5); Eosinophils % (Auto) 2 % (0-10); Hematocrit 23.6 % (36.0-46.0); Immature Granulocytes % (Auto) 0 % (0-0); Immature Granulocytes Auto 0.03 Thou/mm3 (0.00-0.00); Lymphocytes # (Auto) 0.7 Thou/mm3 (1.0-4.8); Lymphocytes % (Auto) 9 % (10-50); Mean Corpuscular HGB Conc 33.1 g/dl (31.0-37.0); Mean Corpuscular Hemoglobin 28.2 pg (25.0-35.0); Mean Corpuscular Volume 85 fL (80-100); Monocytes # (Auto) 0.8 Thou/mm3 (0.0-0.8); Monocytes % (Auto) 9 % (0-12); Neutrophils # (Auto) 6.7 Thou/mm3 (1.8-7.7); Neutrophils % (Auto) 79 % (37-80); Nucleated Red Blood Cell % 0 /100 WBC (0); Platelet Count 249 Thou/mm3 (140-440); RDW Standard Deviation 44.4 fL (36.4-46.3); Red Blood Count 2.77 Miln/mm3 (4.00-5.20); White Blood Count 8.5 Thou/mm3 (3.6-11.0)
[2024-05-11 05:31] LABS: Hemoglobin 7.8 g/dL (12.0-16.0)
[2024-05-11 05:59] LABS: Alanine Aminotransferase 14 U/L (10-49); Albumin, Serum 3.7 gm/dL (3.4-4.8); Albumin/Globulin Ratio 1.2 (1.2-2.2); Alkaline Phosphatase 67 U/L (46-116); Anion Gap 8 (7-16); Aspartate Amino Transferase 12 U/L (0-34); BUN/Creatinine Ratio 28 Ratio (12-20); Bilirubin,Total 0.6 mg/dL (0.3-1.2); Blood Urea Nitrogen 25 mg/dL (9-23); Calcium (Corrected) 9.2 mg/dL (8.5-10.1); Carbon Dioxide 24.2 mMol/L (20.0-31.0); Chloride 107 mMol/L (98-107); Creatinine (Component) 0.9 mg/dL (0.6-1.3); Estimated Creatinine Clearance 52.6 mL/min (>60); Globulin 3.2 gm/dL (2.3-3.5); Glucose 189 mg/dL (74-106); Osmolality,Calculated 286 (275-295); Potassium 4.2 mMol/L (3.4-5.1); Sodium 139 mMol/L (136-145); Total Protein 6.9 gm/dL (5.7-8.2); eGFR > 60 See Note
[2024-05-11] MEDS: INSULIN LISPRO (AdmeLOG) 1 UNIT/0.01 ML UNIT SC ×3 (07:42→16:33)
[2024-05-11] MEDS: ENOXAPARIN SOD INJ 40 MG/0.4 ML SYRINGE SC (09:03)
[2024-05-11] MEDS: VANCOMYCIN/NS 1 GM IVPB 200 ML IV (09:03)
--- NOTE | 2024-05-11 09:32 | CHAP ---
Patient was sleeping. Prayed silently in room.
--- NOTE | 2024-05-11 09:50 | PC.PT ---
Will cancel PT evaluation at this time due to patient is medically unstable to participate for Physical Therapy secondary to respiratory condition. Dr. Palacios and RN made aware.
--- NOTE | 2024-05-11 10:57 | XR_ITS ---
Examination: Ultrasound right hemithorax Ultrasound left hemithorax Exam date and time: May 11, 2024 1134 hours INDICATIONS: Difficulty breathing this week, pleural fluid on chest x-ray May 10, 2024 TECHNIQUE AND FINDINGS: Grayscale sonographic images hemithoraces Mild bilateral pleural fluid IMPRESSION: Mild bilateral pleural fluid
--- NOTE | 2024-05-11 11:00 | XR_ITS ---
Examination: CTA chest with intravenous contrast 2-D reconstructions 3-D reconstructions, vascular Date and time of exam: May 11, 2024 1311 hours INDICATIONS: Acute hypoxic respiratory failure, tachypnea today CTDI: vol (mGy) 10.7 DLP: (mGycm) 331 Technique: Multiple axial sections of the thorax have been obtained. 3 mm slice thickness, from below the hemidiaphragms to above the apices of the lungs. Mediastinal and lung density settings have been obtained. 2-D sagittal and coronal reconstructions. 3-D angiographic renderings, 3-D volume renderings, 3D post processing, vascular maximum intensity projections obtained. Contrast administered is 100 cc [id number]. Low dose protocols were performed. One or more of the following dose reduction techniques were used; automated exposure control, adjustment of the mA and/or KV according to patient size, use of iterative reconstruction technique. Findings: Thoracic aortic opacification is poor, no thoracic cardiac aneurysm dilatation No pulmonary artery filling defects 18 mm right tracheobronchial lymph node Mild right hilar lymphadenopathy Extensive bilateral lung opacity consistent with pneumonia Mild associated heart failure with mild to moderate enlargement cardiac contour with vascular congestion, mild to moderate right pleural effusion mild left pleural effusion Liver mildly irregular in contour Spleen does not appear enlarged IMPRESSION: Negative for pulmonary artery emboli Nonspecific mediastinal lymphadenopathy Extensive bilateral pneumonia Mild associated heart failure
[2024-05-11 11:20] LABS: Glucose Estimated Average 120 mg/dL (80-131); Hemoglobin A1C 5.8 % Hgb (4.8-6.0)
[2024-05-11 12:14] LABS: LDH (Lactate Dehydrogenase) 204 U/L (120-246)
[2024-05-11 12:20] LABS: Cocci Serology, IgG Negative (Negative)
[2024-05-11] MEDS: KETOROLAC INJ 30 MG/ML VIAL 15 MG IVP (14:09)
--- NOTE | 2024-05-11 14:39 | PC.SS ---
Rounding note: pending cardio consult and ultrasound.
--- NOTE | 2024-05-11 15:39 | ESPR_ITS ---
<Statement entered by Gregoria Donahue MD - 05/11/24 23:55> Patient was seen and examined by me personally. I have directly supervised and reviewed documentation by the team resident and agree with its findings with any exceptions or additional findings as below. Plan of care was discussed with the attending, Dr. Ambrosio. Patient was placed on BiPAP this morning around 7 am. Patient seen, awake and interactive, answering questions appropriately. Bilateral lower extremities are showing raisining of the skin suggestive of good diuresis and the patient has adequate urine output through the purewick. Denies wheezing or chest pain. CTA was ordered to rule out PE given the persistent tachypnea and little improvement in oxygen status. Cardiology on-call was also consulted due to potential pulmonary hypertension, would appreciate recommendations. Still pending official echo read. Continue with IV Zosyn and IV vancomycin for severe pneumonia. Gregoria Donahue, PGY-2 Documentation for date of: 05/11/24 Subjective Subjective Interval history: Patient was seen and examined by the bedside. Overnight patient was on BiPAP, there was an attempt to wean her off and switch to high flow but she started to desat and was switched back to BiPAP in the morning. [employer] Dr. Villar is consulted, pending recommendations. Pending official echo read. Ultrasound revealed mild bilateral pleural effusions. CTA official read is pending. Exam Vital Signs Temp Pulse Resp BP Pulse Ox O2 Del Method O2 Flow Rate 98.2 F 85 30 H 139/72 H 96 High Flow Nasal Cannula 30 05/11/24 12:00 05/11/24 14:27 05/11/24 14:27 05/11/24 12:00 05/11/24 14:27 05/11/24 12:00 05/11/24 07:05 FiO2 50 05/11/24 14:27 Narrative Exam Gen: Appears in moderate respiratory distress, able to have conversation, tachypneic. HEENT: NCAT, PERRLA, EOMI, MMM, anicteric conjunctivae. CVS: normal S1 and S2. RRR. No M/R/G. Resp: Bilateral mild rhonchi. Abd: soft, non-tender, non-distended. BS+ in all 4 quadrants. MSK: Good ROM in BUE & BLE. No ankle edema, no rash. Neuro: CN II-XII grossly intact. Strength 5/5 in BUE & BLE. Alert and oriented x3. Psych: appropriate mood and affect. Objective Labs 05/12/24 04:22 05/12/24 04:22 Labs: Laboratory Results - last 24 hr 05/10/24 05/11/24 10:45 04:38 WBC 8.5 RBC 2.77 L Hgb 7.8 L Hct 23.6 L MCV 85 MCH 28.2 MCHC 33.1 RDW Std Deviation 44.4 Plt Count 249 Neut % (Auto) 79 Lymph % (Auto) 9 L Clarke % (Auto) 9 Eos % (Auto) 2 Baso % (Auto) 1 Neut # (Auto) 6.7 Lymph # (Auto) 0.7 L Clarke # (Auto) 0.8 Eos # (Auto) 0.2 Baso # (Auto) 0.0 Immature Gran # (Auto) 0.03 H Absolute Nucleated RBC 0.00 Immature Gran % 0 Nucleated RBC % 0 Sodium 139 Potassium 4.2 Chloride 107 Carbon Dioxide 24.2 Anion Gap 8 BUN 25 H Creatinine 0.9 Estim Creat Clear Calc 52.6 L eGFR > 60 BUN/Creatinine Ratio 28 H Glucose [address] Glu mg/dL 120 Hemoglobin A1c 5.8 Calculated Osmolality 286 Calcium 9.0 Corrected Calcium 9.2 Total Bilirubin 0.6 AST 12 ALT 14 Alkaline Phosphatase 67 Lactate Dehydrogenase 204 Total Protein 6.9 Albumin 3.7 Globulin 3.2 Albumin/Globulin Ratio 1.2 Coccidioides IgG Ab Negative ABG Interpretation ABG results: 05/10/24 05/10/24 04:16 11:05 ABG pH 7.46 H 7.44 ABG pCO2 32 35 ABG pO2 64 L 102 D ABG HCO3 23 24 ABG O2 Saturation 94 99 H ABG Base Excess -1 0 Quality Measures Quality Measures VTE prophylaxis Advance care planning discussed with:: patient Assessment & Plan Assessment Current Active Medications: Generic Name Dose Route Start Last Admin Trade Name Freq PRN Reason Stop Dose Admin Acetaminophen 650 mg 05/09/24 14:21 05/10/24 03:22 Acetaminophen 325 Mg Tablet PO 06/08/24 14:20 650 mg Q6H PRN Administration Fever >100.3 or pain 1-3 Protocol Albuterol/Ipratropium 3 ml 05/09/24 15:00 05/11/24 14:26 Albuterol/Ipratropium (Duoneb) Rt Ana 3 Ml Nebu INH 06/08/24 14:59 3 ml Q4HRRT SAVANNA Administration Dextrose 25 ml 05/09/24 15:37 Dextrose 50%-Water Inj 50 Ml Syringe IV 06/08/24 15:36 Q15MIN PRN BG 50-70 responsive npo pt Dextrose 50 ml 05/09/24 15:37 Dextrose 50%-Water Inj 50 Ml Syringe IV 06/08/24 15:36 Q15MIN PRN BG <50 OR BG <70 & pt unresponsive Enoxaparin Sodium 40 mg 05/10/24 09:00 05/11/24 09:03 Enoxaparin Sod Inj 40 Mg/0.4 Ml Syringe SC 05/24/24 08:59 40 mg QDAY SAVANNA Administration Furosemide 40 mg 05/11/24 09:00 05/11/24 08:49 Furosemide Inj 10 Mg/Ml 4ml Vial IVP 06/10/24 08:59 Not Given BID SAVANNA Glucagon 1 mg 05/09/24 15:37 Glucagon Inj 1 Mg Vial IM Q15MIN PRN BG <70, and no IV access Azithromycin 500 mg/ Sodium 250 mls @ 250 mls/hr 05/09/24 17:45 05/10/24 21:07 Chloride IV 05/16/24 17:44 250 mls/hr QDAY@2100 SAVANNA Administration Piperacillin Sod/Tazobactam 50 mls @ 12.5 mls/hr 05/10/24 22:00 05/11/24 14:03 Sod 3.375 gm/ Sodium Chloride IV 05/17/24 21:59 12.5 mls/hr Q8HR SAVANNA Administration Vancomycin/Sodium Chloride 200 mls @ 120 mls/hr 05/11/24 10:00 05/11/24 09:03 Vancomycin/Ns 1 Gm Ivpb IV 05/18/24 09:59 120 mls/hr Q24H SAVANNA Administration Insulin Human Lispro 0 unit 05/11/24 07:30 05/11/24 11:34 Insulin Lispro (Admelog) 1 Unit/0.01 Ml Unit SC 06/10/24 07:29 4 unit AC SAVANNA Administration Protocol Ketorolac Tromethamine 15 mg 05/10/24 12:22 05/11/24 14:09 Ketorolac Inj 30 Mg/Ml Vial IVP 05/15/24 12:21 15 mg Q6HR PRN Administration Pain 1-10 Melatonin 3 mg 05/10/24 00:55 05/10/24 21:24 Melatonin 3 Mg Tablet PO 06/09/24 00:54 3 mg HS SAVANNA Administration Ondansetron HCl 4 mg 05/09/24 14:21 05/10/24 21:21 Ondansetron Inj 2 Mg/Ml Inj 2 Ml IV 06/08/24 14:20 4 mg Q6H PRN Administration NAUSEA OR VOMITING Protocol Oxycodone/Acetaminophen 1 tab 05/09/24 14:21 Oxycodone/Apap 5/325 Tablet PO 05/14/24 14:20 Q6H PRN PAIN SCALE 4-6 (Moderate Protocol Pharmacy Consult 1 each 05/10/24 10:27 Vancomycin Pharmacy To Dose 1 Each Each IV 06/09/24 10:26 QDAY PRN CONSULT Sennosides 1 tab 05/09/24 14:21 Senna Tablet PO 06/08/24 14:20 QDAY PRN constipation Protocol Sodium Chloride 3 ml 05/09/24 11:04 05/09/24 11:36 Sodium Chloride Rt Ana 0.9% 3 Ml Nebu INH 06/08/24 11:03 3 ml PRN PRN Administration SOLN Plan The patient is a 74-year-old female with a previous medical history of hypertension, type 2 diabetes, hyperlipidemia, iron deficiency anemia. Presented to the emergency room with chief complaint of shortness of breath and cough for 3 days. She was admitted for AHRF CAP vs CHF exacerbation. #Acute hypoxic respiratory failure #Pulmonary hypertension versus CHF exacerbation Patient reports feeling short of breath for 3 days. Denies sick contacts, reports dry cough. Reports orthopnea. CXR showed signs of CHF and pneumonia. ProCal 1.03. EKG unremarkable and troponin I negative. Patient does not have a history of COPD or CAD, there is a possible concern for type I pulmonary hypertension versus HFpEF. Plan: ? Furosemide 40 mg IV BID ? Strict I's and O's ?Fluid restriction 1500 cc daily ?Echo ordered, pending read ? [employer] consulted, pending recommendations #Community-acquired pneumonia Patient reported having shortness of breath for few days before admission. Denies sick contacts, reports dry cough. Reports orthopnea. ?Ceftriaxone 1 g daily [05/09?current] ? Azithromycin 500 mg daily [3/3?current] ? DuoNeb inhalations every 4 hours as needed - Cocci IgM negative - sputum culture pending - BC negative #Chronic iron deficiency anemia Plan: - monitor daily CBC - transfuse if Hgb <7 - follow-up outpatient #T2DM Plan: - home oral medication ore on hold - ISS with Accuchecks #Hypertension - BP medications on hold for now #Lower back pain Plan: - pain control as needed Health maintenance: FEN: cardiac diet with fluid restriction DVT prophylaxis: lovenox sc GI prophylaxis: none Dispo: med tele CODE STATUS: Full code Plan of care discussed with attending Dr. Ambrosio, PGY-[address] Donahue and PGY-[address] Gaxiola. Aida Esparza MD, PGY 1. Attending Provider Attestation/Addendum I have examined the patient, reviewed labs and imaging findings, discussed the case with the resident(s), and reviewed entered orders. I agree with the plan of care as outlined in this note, with these additional summaries/recommendations: Patient seen at bedside. No acute overnight events. Patient titrated off BiPAP overnight and transitioned to HFNC. Patient admitted for acute hypoxic respiratory failure most likely secondary to CHF exacerbation +/- superimposed bacterial pneumonia +/- pulmonary hypertension. We will continue aggressive diuresis. Pending echocardiogram to start goal-directed medical therapy. Continue IV antibiotics for bacterial pneumonia. Blood Cultures show no growth at 48 hours andsputum cx results pending. We will consult cardiology for likely CHF and PH. We will order us to evalulate for pleural effusions and order CTA chest to rule out pulmonary embolism. Previous Echo 04/30/22 showed normal RV size and function, estimated RSVP 50mmHg. Continue insulin sliding scale for diabetes mellitus type 2. Continue pain management for chronic lower back pain. Patient updated on the plan and in agreement. Repeat hematology and chemistry panel in AM. Dr. Daily MD
--- NOTE | 2024-05-11 16:31 | ESCONSULT_ITS ---
HPI Data of Consult Requesting Physician: Angelo Ambrosio MD Primary Care Provider: Physician No Primary/Family Consult Narrative History of present illness: This is a 74-year-old female with a previous medical history of hypertension, type 2 diabetes, hyperlipidemia, iron deficiency anemia. pt seen in the ER with sob and cough -3 days also complained of chest pain ; EKG negative for ischemia ; Troponin negative previous echo shows normal EF CT chest shows extensive B/L pneumonia cc:: cc: Angelo Ambrosio MD Meds Home Medications and Allergies Home Medications ?Medication ?Instructions ?Recorded ?Confirmed ?Type empagliflozin 25 mg tablet 25 mg PO QDAY 04/30/22 11/0 04/01 History (Jardiance) Allergies Allergy/AdvReac Type Severity Reaction Status Date / Time No Known Allergies Allergy Verified 05/09/24 10:52 Exam Vital Signs Temp Pulse Resp BP Pulse Ox O2 Del Method O2 Flow Rate 98.2 F 87 30 H 139/72 H 96 High Flow Nasal Cannula 30 05/11/24 12:00 05/11/24 15:53 05/11/24 14:27 05/11/24 12:00 05/11/24 14:27 05/11/24 12:00 05/11/24 07:05 FiO2 50 05/11/24 14:27 Routine HEENT Exam Head: Present normocephalic and atraumatic Eye: Present EOMI and PERRL ENT: Present mucous membranes moist Routine Neck Exam Neck: Present supple and trachea midline Routine Respiratory Exam Respiratory: Present chest non-tender, lungs clear, normal breath sounds and no resp distress Routine Cardiovascular Exam Cardiovascular: Present RRR Routine Abdominal Exam Abdominal: Present soft and normoactive bowel sounds Routine Extremities Exam Extremities: Present full ROM Routine Skin Exam Skin: Present intact, dry and warm Routine Neurological Exam Neurological: Present alert, oriented X3 and CN II-XII intact Routine Psychiatric Exam Psychiatric: Present normal affect and normal thought process Results Labs 05/11/24 04:38 05/11/24 04:38 Labs: Short CBC 05/11/24 Range/Units 04:38 WBC 8.5 (3.6-11.0) Thou/mm3 Hgb 7.8 L (12.0-16.0) g/dL Hct 23.6 L (36.0-46.0) % Plt Count 249 (140-440) Thou/mm3 BMP 05/11/24 04:38 Sodium 139 Potassium 4.2 Chloride 107 Carbon Dioxide 24.2 BUN 25 H Creatinine 0.9 Glucose 189 H Calcium 9.0 Liver Function 05/11/24 Range/Units 04:38 Total Bilirubin 0.6 (0.3-1.2) mg/dL AST 12 (0-34) U/L ALT 14 (10-49) U/L Alkaline Phosphatase 67 (46-116) U/L Albumin 3.7 (3.4-4.8) gm/dL ABG Interpretation ABG results: 05/10/24 05/10/24 04:16 11:05 ABG pH 7.46 H 7.44 ABG pCO2 32 35 ABG pO2 64 L 102 D ABG HCO3 23 24 ABG O2 Saturation 94 99 H ABG Base Excess -1 0 Assessment and Plan Assessment and plan (1) Pneumonia: Status: Acute (2) Essential hypertension: Status: Chronic (3) Hyperlipidemia: Status: Chronic (4) Diabetes mellitus type 2 in obese: Status: Chronic (5) CHF (congestive heart failure): Status: Acute Additional Assessment & Plan Additional Plan: Pts symptoms are most likely related to extensive B/l pneumonia prior echo shows normal EF continue aggresive antibiotics troponin and EKG negative for ACS (3) Hyperlipidemia Qualifiers: Hyperlipidemia type: unspecified Qualified Code(s): E78.5 - Hyperlipidemia, unspecified
[2024-05-11] MEDS: MELATONIN 3 MG TABLET PO (21:09)
[2024-05-11] MEDS: AZITHROMYCIN INJ 500 MG in SODIUM CHLORIDE 0.9% 250 ML 250 ML 250 MG IV (22:18)
[2024-05-11] MEDS: ACETAMINOPHEN 325 MG TABLET 650 MG PO (22:46)
[2024-05-12] VITALS (13 sets, daily range): BP systolic 127–172; BP diastolic 71–89; PULSE 73–90; RESP 17–30; TEMP 35.6–36.9; O2SAT 90–98; BMI 33.3
[2024-05-12 06:00] LABS: Basophils % (Auto) 1 % (0-2.5); Eosinophils # (Auto) 0.3 Thou/mm3 (0.0-0.5); Eosinophils % (Auto) 3 % (0-10); Hematocrit 22.6 % (36.0-46.0); Immature Granulocytes % (Auto) 0 % (0-0); Immature Granulocytes Auto 0.03 Thou/mm3 (0.00-0.00); Lymphocytes # (Auto) 0.8 Thou/mm3 (1.0-4.8); Lymphocytes % (Auto) 10 % (10-50); Mean Corpuscular HGB Conc 33.6 g/dl (31.0-37.0); Mean Corpuscular Hemoglobin 28.7 pg (25.0-35.0); Mean Corpuscular Volume 85 fL (80-100); Monocytes # (Auto) 0.7 Thou/mm3 (0.0-0.8); Monocytes % (Auto) 9 % (0-12); Neutrophils % (Auto) 77 % (37-80); Nucleated Red Blood Cell % 0 /100 WBC (0); Platelet Count 283 Thou/mm3 (140-440); RDW Standard Deviation 44.4 fL (36.4-46.3); Red Blood Count 2.65 Miln/mm3 (4.00-5.20); White Blood Count 7.8 Thou/mm3 (3.6-11.0)
[2024-05-12] MEDS: PIPER/TAZO INJ 3.375 GM in SODIUM CHLORIDE 0.9% (Popper) 50 ML IV ×3 (06:06→21:18)
[2024-05-12 06:11] LABS: Hemoglobin 7.6 g/dL (12.0-16.0)
[2024-05-12 06:23] LABS: Alanine Aminotransferase 23 U/L (10-49); Albumin, Serum 3.7 gm/dL (3.4-4.8); Albumin/Globulin Ratio 1.2 (1.2-2.2); Alkaline Phosphatase 86 U/L (46-116); Anion Gap 7 (7-16); Aspartate Amino Transferase 16 U/L (0-34); BUN/Creatinine Ratio 27 Ratio (12-20); Bilirubin,Total 0.6 mg/dL (0.3-1.2); Blood Urea Nitrogen 32 mg/dL (9-23); Calcium 8.9 mg/dL (8.3-10.6); Calcium (Corrected) 9.1 mg/dL (8.5-10.1); Carbon Dioxide 25.8 mMol/L (20.0-31.0); Chloride 107 mMol/L (98-107); Creatinine (Component) 1.2 mg/dL (0.6-1.3); Estimated Creatinine Clearance 64.3 mL/min (>60); Globulin 3.2 gm/dL (2.3-3.5); Glucose 224 mg/dL (74-106); Osmolality,Calculated 293 (275-295); Potassium 4.1 mMol/L (3.4-5.1); Sodium 140 mMol/L (136-145); Total Protein 6.9 gm/dL (5.7-8.2); eGFR 48 See Note
[2024-05-12] MEDS: INSULIN LISPRO (AdmeLOG) 1 UNIT/0.01 ML UNIT SC ×3 (07:57→17:03)
[2024-05-12] MEDS: FUROSEMIDE INJ 10 MG/ML 4ML VIAL 40 MG IVP (08:10)
[2024-05-12] MEDS: ENOXAPARIN SOD INJ 40 MG/0.4 ML SYRINGE SC (08:11)
[2024-05-12] MEDS: VANCOMYCIN/NS 1 GM IVPB 200 ML IV (10:17)
[2024-05-12] MEDS: INSULIN GLARGINE (Lantus) 5 UNIT/0.05 ML (PER 5 UNITS) 9 UNIT SC (11:38)
[2024-05-12] MEDS: INSULIN LISPRO (AdmeLOG) 1 UNIT/0.01 ML UNIT 2 UNIT SC ×3 (11:40→20:52)
[2024-05-12] MEDS: amLODIPine BESYLATE 5 MG TABLET 10 MG PO (12:45)
[2024-05-12] MEDS: oxyCODONE/APAP 5/325 TABLET 1 TAB PO (12:58)
--- NOTE | 2024-05-12 15:23 | ESPR_ITS ---
<Statement entered by Gregoria Donahue MD - 05/12/24 22:47> Patient was seen and examined by me personally. I have directly supervised and reviewed documentation by the team resident and agree with its findings with any exceptions or additional findings as below. Plan of care was discussed with the attending, Dr. Ambrosio. Patient seen at bedside this morning, awake and interactive. She was on Hi-Flow O2 all night, switched to BiPAP this morning to continue positive-pressure. Continues to have high oxygen requirements. CTA chest done yesterday showed no evidence of PE, but does show extensive severe bilateral pneumonia. Patient may be having component of pulmonary hypertension contributing as well. Patient's creatinine worsened slightly to 1.2 so will hold evening dose of Lasix 40 mg IV. Bynum to be placed as the patient was still getting up to use the bathroom and some I&Os were not being measured accurately. Started chest physiotherapy. Gregoria Donahue, PGY-2 Documentation for date of: 05/12/24 Subjective Subjective Interval history: Patient was seen and examined by the bedside. During night, she was on high flow 22L, 85%, saturating at 92%. She was switched to BiPAP, saturation improved. CTA showed extensive pneumonia. Continues to receive Zosyn, was started on chest PT. Resumed her home amlodipine. Kidney functions has worsened, furosemide was put on hold, bynum was ordered for output monitoring. Exam Vital Signs Temp Pulse Resp BP Pulse Ox O2 Del Method O2 Flow Rate 97.3 F 86 24 H 172/89 H 94 L High Flow Nasal Cannula 25 05/12/24 12:00 05/12/24 12:45 05/12/24 12:00 05/12/24 12:45 05/12/24 12:00 05/12/24 12:00 05/12/24 12:00 FiO2 85 05/12/24 12:00 Narrative Exam Gen: Appears in moderate respiratory distress, able to have conversation, tachypneic. HEENT: NCAT, PERRLA, EOMI, MMM, anicteric conjunctivae. CVS: normal S1 and S2. RRR. No M/R/G. Resp: CTABL Abd: soft, non-tender, non-distended. BS+ in all 4 quadrants. MSK: Good ROM in BUE & BLE. No ankle edema, no rash. Neuro: CN II-XII grossly intact. Strength 5/5 in BUE & BLE. Alert and oriented x3. Psych: appropriate mood and affect. Objective Labs 05/13/24 04:50 05/13/24 04:50 Labs: Laboratory Results - last 24 hr 05/12/24 04:22 WBC 7.8 RBC 2.65 L Hgb 7.6 L Hct 22.6 L MCV 85 MCH 28.7 MCHC 33.6 RDW Std Deviation 44.4 Plt Count 283 D Neut % (Auto) 77 Lymph % (Auto) 10 Coke % (Auto) 9 Eos % (Auto) 3 Baso % (Auto) 1 Neut # (Auto) 6.0 Lymph # (Auto) 0.8 L Coke # (Auto) 0.7 Eos # (Auto) 0.3 Baso # (Auto) 0.0 Immature Gran # (Auto) 0.03 H Absolute Nucleated RBC 0.00 Immature Gran % 0 Nucleated RBC % 0 Sodium 140 Potassium 4.1 Chloride 107 Carbon Dioxide 25.8 Anion Gap 7 BUN 32 H Creatinine 1.2 Estim Creat Clear Calc 64.3 eGFR 48 L BUN/Creatinine Ratio 27 H Glucose 224 H Calculated Osmolality 293 Calcium 8.9 Corrected Calcium 9.1 Total Bilirubin 0.6 AST 16 ALT 23 Alkaline Phosphatase 86 D Total Protein 6.9 Albumin 3.7 Globulin 3.2 Albumin/Globulin Ratio 1.2 ABG Interpretation ABG results: 05/10/24 05/10/24 04:16 11:05 ABG pH 7.46 H 7.44 ABG pCO2 32 35 ABG pO2 64 L 102 D ABG HCO3 23 24 ABG O2 Saturation 94 99 H ABG Base Excess -1 0 Quality Measures Quality Measures VTE prophylaxis Advance care planning discussed with:: child Assessment & Plan Assessment Current Active Medications: Generic Name Dose Route Start Last Admin Trade Name Freq PRN Reason Stop Dose Admin Acetaminophen 650 mg 05/09/24 14:21 05/11/24 22:46 Acetaminophen 325 Mg Tablet PO 06/08/24 14:20 650 mg Q6H PRN Administration Fever >100.3 or pain 1-3 Protocol Albuterol/Ipratropium 3 ml 05/11/24 15:46 Albuterol/Ipratropium (Duoneb) Rt Ana 3 Ml Nebu INH 06/08/24 14:59 Q4HRRT PRN shortness of breath Amlodipine Besylate 10 mg 05/12/24 12:15 05/12/24 12:45 Amlodipine Besylate 5 Mg Tablet PO 06/11/24 12:14 10 mg QDAY SAVANNA Administration Dextrose 25 ml 05/09/24 15:37 Dextrose 50%-Water Inj 50 Ml Syringe IV 06/08/24 15:36 Q15MIN PRN BG 50-70 responsive npo pt Dextrose 50 ml 05/09/24 15:37 Dextrose 50%-Water Inj 50 Ml Syringe IV 06/08/24 15:36 Q15MIN PRN BG <50 OR BG <70 & pt unresponsive Enoxaparin Sodium 40 mg 05/10/24 09:00 05/12/24 08:11 Enoxaparin Sod Inj 40 Mg/0.4 Ml Syringe SC 05/24/24 08:59 40 mg QDAY SAVANNA Administration Furosemide 40 mg 05/11/24 09:00 05/12/24 08:10 Furosemide Inj 10 Mg/Ml 4ml Vial IVP 06/10/24 08:59 40 mg BID SAVANNA Administration Glucagon 1 mg 05/09/24 15:37 Glucagon Inj 1 Mg Vial IM Q15MIN PRN BG <70, and no IV access Piperacillin Sod/Tazobactam 50 mls @ 12.5 mls/hr 05/10/24 22:00 05/12/24 06:06 Sod 3.375 gm/ Sodium Chloride IV 05/17/24 21:59 12.5 mls/hr Q8HR SAVANNA Administration Vancomycin/Sodium Chloride 200 mls @ 120 mls/hr 05/11/24 10:00 05/12/24 10:17 Vancomycin/Ns 1 Gm Ivpb IV 05/18/24 09:59 120 mls/hr Q24H SAVANNA Administration Insulin Glargine 9 unit 05/12/24 11:15 05/12/24 11:38 Insulin Glargine (Lantus) 5 Unit/0.05 Ml (Per 5 Units) SC 06/11/24 11:14 9 unit QDAY SAVANNA Administration Insulin Human Lispro 0 unit 05/11/24 07:30 05/12/24 11:40 Insulin Lispro (Admelog) 1 Unit/0.01 Ml Unit SC 06/10/24 07:29 4 unit AC SAVANNA Administration Protocol Insulin Human Lispro 2 unit 05/12/24 11:30 05/12/24 11:40 Insulin Lispro (Admelog) 1 Unit/0.01 Ml Unit SC 06/11/24 11:29 2 unit ACHS SAVANNA Administration Ketorolac Tromethamine 15 mg 05/10/24 12:22 05/11/24 14:09 Ketorolac Inj 30 Mg/Ml Vial IVP 05/15/24 12:21 15 mg Q6HR PRN Administration Pain 1-10 Melatonin 3 mg 05/10/24 00:55 05/11/24 21:09 Melatonin 3 Mg Tablet PO 06/09/24 00:54 3 mg HS SAVANNA Administration Ondansetron HCl 4 mg 05/09/24 14:21 05/10/24 21:21 Ondansetron Inj 2 Mg/Ml Inj 2 Ml IV 06/08/24 14:20 4 mg Q6H PRN Administration NAUSEA OR VOMITING Protocol Oxycodone/Acetaminophen 1 tab 05/09/24 14:21 05/12/24 12:58 Oxycodone/Apap 5/325 Tablet PO 05/14/24 14:20 1 tab Q6H PRN Administration PAIN SCALE 4-6 (Moderate Protocol Pharmacy Consult 1 each 05/10/24 10:27 Vancomycin Pharmacy To Dose 1 Each Each IV 06/09/24 10:26 QDAY PRN CONSULT Sennosides 1 tab 05/09/24 14:21 Senna Tablet PO 06/08/24 14:20 QDAY PRN constipation Protocol Sodium Chloride 3 ml 05/09/24 11:04 05/09/24 11:36 Sodium Chloride Rt Ana 0.9% 3 Ml Nebu INH 06/08/24 11:03 3 ml PRN PRN Administration SOLN Plan The patient is a 74-year-old female with a previous medical history of hypertension, type 2 diabetes, hyperlipidemia, iron deficiency anemia. Presented to the emergency room with chief complaint of shortness of breath and cough for 3 days. She was admitted for AHRF CAP vs CHF exacerbation. #Acute hypoxic respiratory failure #Pulmonary hypertension versus CHF exacerbation Patient reports feeling short of breath for 3 days. Denies sick contacts, reports dry cough. Reports orthopnea. CXR showed signs of CHF and pneumonia. ProCal 1.03. EKG unremarkable and troponin I negative. Patient does not have a history of COPD or CAD, there is a possible concern for type I pulmonary hypertension versus HFpEF. Plan: ? Furosemide 40 mg IV BID on hold ? Strict I's and O's ?Fluid restriction 1500 cc daily ?Echo ordered, pending read ? Channel Marketing Coordinator consulted, pending recommendations #JAD 05/12: Creatinine went up to 1.2 compared to 0.9 on 05/11. Plan: ? Furosemide on hold ? Avoid nephrotoxic agents ? Renally dose medications ? Monitor daily CMP ? Bynum catheter insertion for strict I's and O's #Community-acquired pneumonia Patient reported having shortness of breath for few days before admission. Denies sick contacts, reports dry cough. Reports orthopnea. Discontinued Ceftriaxone 1 g daily [05/09?05/10] Discontinued Azithromycin 500 mg daily [05/09?05/10] Plan: - Zosyn 4.5g q6hr 05/10-[facility]net - Vancomycin pharnacy to dose 05/10- current ? DuoNeb inhalations every 4 hours as needed - Cocci IgM negative - sputum culture pending - BC negative - Chest PT #Chronic iron deficiency anemia Plan: - monitor daily CBC - transfuse if Hgb <7 - follow-up outpatient #T2DM 05/11: A1c 5.8 Plan: - home oral medication ore on hold - ISS with Accuchecks ?Glargine 9 units SC daily ? Lispro 2 units with meals #Hypertension -Resumed home amlodipine 10 mg per day #Lower back pain Plan: - pain control as needed Health maintenance: FEN: cardiac diet with fluid restriction DVT prophylaxis: lovenox sc GI prophylaxis: none Dispo: med tele CODE STATUS: Full code Plan of care discussed with attending Dr. Ambrosio, PGY-[address] Donahue and PGY-[address] Gaxiola. Aida Esparza MD, PGY 1. Attending Provider Attestation/Addendum I have examined the patient, reviewed labs and imaging findings, discussed the case with the resident(s), and reviewed entered orders. I agree with the plan of care as outlined in this note, with these additional summaries/recommendations: Patient seen at bedside. No acute overnight events. Patient continues to be titrated between BiPAP and high flow nasal cannula. She still endorses shortness of breath but feels its improved. Patient admitted for acute hypoxic respiratory failure most likely secondary to CHF exacerbation +/- superimposed bacterial pneumonia +/- pulmonary hypertension. Patient has received aggressive diuresis and suspect less likely related to CHF at this time. Pending echocardiogram to start goal-directed medical therapy. Continue IV antibiotics for bacterial pneumonia. Suspect severe pneumonia is most likely contributing factor at this time. We will add chest physiotherapy today. Blood Cultures show no growth at 48 hours and sputum cx results pending. We will consult cardiology for likely CHF and PH. CTA negative for pulmonary embolism. Previous Echo 04/30/22 showed normal RV size and function, estimated RSVP 50mmHg. Continue insulin sliding scale for diabetes mellitus type 2. Continue pain management for chronic lower back pain. Patient updated on the plan and in agreement. Repeat hematology and chemistry panel in AM. Dr. Daily MD
[2024-05-12] MEDS: MELATONIN 3 MG TABLET PO (20:52)
[2024-05-13] VITALS (11 sets, daily range): BP systolic 135–172; BP diastolic 57–82; PULSE 70–91; RESP 18–24; TEMP 35.9–37.2; O2SAT 90–97
[2024-05-13] MEDS: PIPER/TAZO INJ 3.375 GM in SODIUM CHLORIDE 0.9% (Popper) 50 ML IV ×3 (05:11→22:23)
[2024-05-13 05:49] LABS: Basophils # (Auto) 0.1 Thou/mm3 (0.0-0.2); Basophils % (Auto) 1 % (0-2.5); Eosinophils # (Auto) 0.2 Thou/mm3 (0.0-0.5); Eosinophils % (Auto) 3 % (0-10); Immature Granulocytes % (Auto) 0 % (0-0); Immature Granulocytes Auto 0.02 Thou/mm3 (0.00-0.00); Lymphocytes # (Auto) 0.8 Thou/mm3 (1.0-4.8); Lymphocytes % (Auto) 10 % (10-50); Mean Corpuscular HGB Conc 33.5 g/dl (31.0-37.0); Mean Corpuscular Hemoglobin 28.4 pg (25.0-35.0); Mean Corpuscular Volume 85 fL (80-100); Monocytes # (Auto) 0.6 Thou/mm3 (0.0-0.8); Monocytes % (Auto) 8 % (0-12); Neutrophils % (Auto) 78 % (37-80); Nucleated Red Blood Cell % 0 /100 WBC (0); Platelet Count 326 Thou/mm3 (140-440); RDW Standard Deviation 42.8 fL (36.4-46.3); Red Blood Count 2.71 Miln/mm3 (4.00-5.20); White Blood Count 7.7 Thou/mm3 (3.6-11.0)
[2024-05-13 05:51] LABS: Hemoglobin 7.7 g/dL (12.0-16.0)
[2024-05-13 06:10] LABS: Anion Gap 8 (7-16); BUN/Creatinine Ratio 27 Ratio (12-20); Blood Urea Nitrogen 27 mg/dL (9-23); Calcium 9.3 mg/dL (8.3-10.6); Carbon Dioxide 24.5 mMol/L (20.0-31.0); Chloride 105 mMol/L (98-107); Estimated Creatinine Clearance 47.3 mL/min (>60); Glucose 256 mg/dL (74-106); Osmolality,Calculated 287 (275-295); Potassium 3.8 mMol/L (3.4-5.1); Sodium 137 mMol/L (136-145); eGFR 59 See Note
[2024-05-13] MEDS: ENOXAPARIN SOD INJ 40 MG/0.4 ML SYRINGE SC (08:00)
[2024-05-13] MEDS: INSULIN GLARGINE (Lantus) 5 UNIT/0.05 ML (PER 5 UNITS) 9 UNIT SC (08:00)
[2024-05-13] MEDS: amLODIPine BESYLATE 5 MG TABLET 10 MG PO (08:00)
[2024-05-13] MEDS: INSULIN LISPRO (AdmeLOG) 1 UNIT/0.01 ML UNIT SC ×3 (08:01→17:34)
[2024-05-13] MEDS: INSULIN LISPRO (AdmeLOG) 1 UNIT/0.01 ML UNIT 2 UNIT SC ×3 (08:01→17:34)
--- NOTE | 2024-05-13 08:10 | PD.IMPROG ---
Documentation for date of: 05/13/24 Subjective Subjective Interval history: Patient is being treated for pneumonia Hemoglobin is somewhat Exam Vital Signs Temp Pulse Resp BP Pulse Ox O2 Del Method O2 Flow Rate 98.0 F 91 19 172/82 H 96 High Flow Nasal Cannula 22 05/13/24 04:00 05/13/24 08:00 05/13/24 04:42 05/13/24 08:00 05/13/24 04:42 05/13/24 04:00 05/13/24 04:42 FiO2 65 05/13/24 04:42 Routine HEENT Exam Head: Present normocephalic and atraumatic Eye: Present EOMI and PERRL ENT: Present mucous membranes moist Routine Neck Exam Neck: Present supple and trachea midline Routine Respiratory Exam Respiratory: Present chest non-tender, lungs clear, normal breath sounds and no resp distress Routine Cardiovascular Exam Cardiovascular: Present RRR Routine Abdominal Exam Abdominal: Present soft and normoactive bowel sounds Routine Extremities Exam Extremities: Present full ROM Routine Skin Exam Skin: Present intact, dry and warm Routine Neurological Exam Neurological: Present alert, oriented X3 and CN II-XII intact Routine Psychiatric Exam Psychiatric: Present normal affect and normal thought process Objective Labs 05/13/24 04:50 05/13/24 04:50 Labs: Laboratory Results - last 24 hr 05/13/24 04:50 WBC 7.7 RBC 2.71 L Hgb 7.7 L Hct 23.0 L MCV 85 MCH 28.4 MCHC 33.5 RDW Std Deviation 42.8 Plt Count 326 D Neut % (Auto) 78 Lymph % (Auto) 10 [place] % (Auto) 8 Eos % (Auto) 3 Baso % (Auto) 1 Neut # (Auto) 6.0 Lymph # (Auto) 0.8 L [place] # (Auto) 0.6 Eos # (Auto) 0.2 Baso # (Auto) 0.1 Immature Gran # (Auto) 0.02 H Absolute Nucleated RBC 0.00 Immature Gran % 0 Nucleated RBC % 0 Sodium 137 Potassium 3.8 Chloride 105 Carbon Dioxide 24.5 Anion Gap 8 BUN 27 H Creatinine 1.0 Estim Creat Clear Calc 47.3 L eGFR 59 L BUN/Creatinine Ratio 27 H Glucose 256 H Calculated Osmolality 287 Calcium 9.3 ABG Interpretation ABG results: 05/10/24 05/10/24 04:16 11:05 ABG pH 7.46 H 7.44 ABG pCO2 32 35 ABG pO2 64 L 102 D ABG HCO3 23 24 ABG O2 Saturation 94 99 H ABG Base Excess -1 0 Assessment & Plan A&P Narrative Continue current medical management Time Spent With Patient Time: Total time spent is greater than 50% in coordination of care (as documented) at patient's floor/unit and/or counseling patient:
[2024-05-13 10:02] LABS: Vancomycin,Trough 8.3 mcg/mL (5.0-10.0)
[2024-05-13] MEDS: ACETAMINOPHEN 325 MG TABLET 650 MG PO (10:36)
[2024-05-13] MEDS: VANCOMYCIN/NS 750 MG IVPB 750 MG/150 ML BAG 120 MG IV ×2 (10:37→21:01)
--- NOTE | 2024-05-13 11:15 | CHAP ---
Patient was visited by the Spiritual Care Volunteer from whom they received communion. (Volunteer was in the hospital from10:00-11:15).
[2024-05-13] MEDS: LOSARTAN POTASSIUM 25 MG TABLET 50 MG PO (11:30)
--- NOTE | 2024-05-13 14:48 | PC.SS ---
Follow up note: Pt is on high flow O2, 20 liters and 60% FIO2. Pt is on is on IV antibiotic. Pt will return home upon d.c.
--- NOTE | 2024-05-13 15:58 | PD.RESPRO ---
Documentation for date of: 05/13/24 Subjective Subjective Interval history: Patient was seen and examined by the bedside. No acute overnight events. Patient reports feeling better, less respiratory distress, able to comfortably converse. Was on high flow overnight. Downtitrated to 20L, FiO2 60%, SaO2 97%. Will continue with antibiotics and will try to wean her off oxygen further. UO 1.5L. Sputum and blood culture negative for growth. Dr. Villar consulted, heart failure exacerbation is less likely, recommends continue to treat pneumonia. Exam Vital Signs Temp Pulse Resp BP Pulse Ox O2 Del Method O2 Flow Rate 96.6 F L 74 21 H 135/74 H 97 High Flow Nasal Cannula 20 05/13/24 11:36 05/13/24 14:10 05/13/24 14:10 05/13/24 11:36 05/13/24 14:10 05/13/24 11:36 05/13/24 14:10 FiO2 60 05/13/24 14:10 Narrative Exam Gen: Resting in bed, able to have full conversation. HEENT: NCAT, PERRLA, EOMI, MMM, anicteric conjunctivae. CVS: normal S1 and S2. RRR. No M/R/G. Resp: Mild rhonchi on the left side. Abd: soft, non-tender, non-distended. BS+ in all 4 quadrants. MSK: Good ROM in BUE & BLE. No ankle edema, no rash. Neuro: CN II-XII grossly intact. Strength 5/5 in BUE & BLE. Alert and oriented x3. Psych: appropriate mood and affect. Objective Labs 05/14/24 04:39 05/14/24 04:39 Labs: Laboratory Results - last 24 hr 05/13/24 05/13/24 04:50 09:08 WBC 7.7 RBC 2.71 L Hgb 7.7 L Hct 23.0 L MCV 85 MCH 28.4 MCHC 33.5 RDW Std Deviation 42.8 Plt Count 326 D Neut % (Auto) 78 Lymph % (Auto) 10 [place] % (Auto) 8 Eos % (Auto) 3 Baso % (Auto) 1 Neut # (Auto) 6.0 Lymph # (Auto) 0.8 L [place] # (Auto) 0.6 Eos # (Auto) 0.2 Baso # (Auto) 0.1 Immature Gran # (Auto) 0.02 H Absolute Nucleated RBC 0.00 Immature Gran % 0 Nucleated RBC % 0 Sodium 137 Potassium 3.8 Chloride 105 Carbon Dioxide 24.5 Anion Gap 8 BUN 27 H Creatinine 1.0 Estim Creat Clear Calc 47.3 L eGFR 59 L BUN/Creatinine Ratio 27 H Glucose 256 H Calculated Osmolality 287 Calcium 9.3 Vancomycin Trough 8.3 ABG Interpretation ABG results: 05/10/24 05/10/24 04:16 11:05 ABG pH 7.46 H 7.44 ABG pCO2 32 35 ABG pO2 64 L 102 D ABG HCO3 23 24 ABG O2 Saturation 94 99 H ABG Base Excess -1 0 Quality Measures Quality Measures VTE prophylaxis Advance care planning discussed with:: child Assessment & Plan Assessment Current Active Medications: Generic Name Dose Route Start Last Admin Trade Name Freq PRN Reason Stop Dose Admin Acetaminophen 650 mg 05/09/24 14:21 05/13/24 10:36 Acetaminophen 325 Mg Tablet PO 06/08/24 14:20 650 mg Q6H PRN Administration Fever >100.3 or pain 1-3 Protocol Albuterol/Ipratropium 3 ml 05/11/24 15:46 Albuterol/Ipratropium (Duoneb) Rt Ana 3 Ml Nebu INH 06/08/24 14:59 Q4HRRT PRN shortness of breath Amlodipine Besylate 10 mg 05/12/24 12:15 05/13/24 08:00 Amlodipine Besylate 5 Mg Tablet PO 06/11/24 12:14 10 mg QDAY SAVANNA Administration Dextrose 25 ml 05/09/24 15:37 Dextrose 50%-Water Inj 50 Ml Syringe IV 06/08/24 15:36 Q15MIN PRN BG 50-70 responsive npo pt Dextrose 50 ml 05/09/24 15:37 Dextrose 50%-Water Inj 50 Ml Syringe IV 06/08/24 15:36 Q15MIN PRN BG <50 OR BG <70 & pt unresponsive Enoxaparin Sodium 40 mg 05/10/24 09:00 05/13/24 08:00 Enoxaparin Sod Inj 40 Mg/0.4 Ml Syringe SC 05/24/24 08:59 40 mg QDAY SAVANNA Administration Furosemide 40 mg 05/11/24 09:00 05/12/24 08:10 Furosemide Inj 10 Mg/Ml 4ml Vial IVP 06/10/24 08:59 40 mg BID SAVANNA Administration Glucagon 1 mg 05/09/24 15:37 Glucagon Inj 1 Mg Vial IM Q15MIN PRN BG <70, and no IV access Piperacillin Sod/Tazobactam 50 mls @ 12.5 mls/hr 05/10/24 22:00 05/13/24 13:16 Sod 3.375 gm/ Sodium Chloride IV 05/17/24 21:59 12.5 mls/hr Q8HR SAVANNA Administration Vancomycin/Sodium Chloride 750 mg in 150 mls @ 120 mls/hr 05/13/24 10:15 05/13/24 10:37 Vancomycin/Ns 750 Mg Ivpb IV 05/20/24 10:14 120 mls/hr BID@1000,2200 SAVANNA Administration Protocol Insulin Glargine 9 unit 05/12/24 11:15 05/13/24 08:00 Insulin Glargine (Lantus) 5 Unit/0.05 Ml (Per 5 Units) SC 06/11/24 11:14 9 unit QDAY SAVANNA Administration Insulin Human Lispro 0 unit 05/11/24 07:30 05/13/24 11:33 Insulin Lispro (Admelog) 1 Unit/0.01 Ml Unit SC 06/10/24 07:29 5 unit AC SAVANNA Administration Protocol Insulin Human Lispro 2 unit 05/12/24 11:30 05/13/24 11:32 Insulin Lispro (Admelog) 1 Unit/0.01 Ml Unit SC 06/11/24 11:29 2 unit ACHS SAVANNA Administration Ketorolac Tromethamine 15 mg 05/10/24 12:22 05/11/24 14:09 Ketorolac Inj 30 Mg/Ml Vial IVP 05/15/24 12:21 15 mg Q6HR PRN Administration Pain 1-10 Losartan Potassium 50 mg 05/13/24 11:00 05/13/24 11:30 Losartan Potassium 25 Mg Tablet PO 06/12/24 10:59 50 mg QDAY SAVANNA Administration Melatonin 3 mg 05/10/24 00:55 05/12/24 20:52 Melatonin 3 Mg Tablet PO 06/09/24 00:54 3 mg HS SAVANNA Administration Ondansetron HCl 4 mg 05/09/24 14:21 05/10/24 21:21 Ondansetron Inj 2 Mg/Ml Inj 2 Ml IV 06/08/24 14:20 4 mg Q6H PRN Administration NAUSEA OR VOMITING Protocol Oxycodone/Acetaminophen 1 tab 05/09/24 14:21 05/12/24 12:58 Oxycodone/Apap 5/325 Tablet PO 05/14/24 14:20 1 tab Q6H PRN Administration PAIN SCALE 4-6 (Moderate Protocol Pharmacy Consult 1 each 05/10/24 10:27 Vancomycin Pharmacy To Dose 1 Each Each IV 06/09/24 10:26 QDAY PRN CONSULT Sennosides 1 tab 05/09/24 14:21 Senna Tablet PO 06/08/24 14:20 QDAY PRN constipation Protocol Sodium Chloride 3 ml 05/09/24 11:04 05/09/24 11:36 Sodium Chloride Rt Ana 0.9% 3 Ml Nebu INH 06/08/24 11:03 3 ml PRN PRN Administration SOLN Plan The patient is a 74-year-old female with a previous medical history of hypertension, type 2 diabetes, hyperlipidemia, iron deficiency anemia. Presented to the emergency room with chief complaint of shortness of breath and cough for 3 days. She was admitted for AHRF CAP vs CHF exacerbation. #Acute hypoxic respiratory failure #Pulmonary hypertension versus CHF exacerbation Patient reports feeling short of breath for 3 days. Denies sick contacts, reports dry cough. Reports orthopnea. CXR showed signs of CHF and pneumonia. ProCal 1.03. EKG unremarkable and troponin I negative. Patient does not have a history of COPD or CAD, there is a possible concern for type I pulmonary hypertension versus HFpEF. Plan: ? Furosemide 40 mg IV BID on hold ? Strict I's and O's ?Fluid restriction 1500 cc daily ?Echo ordered, pending read ? Compressor Mechanic consulted, pending recommendations #JAD 05/12: Creatinine went up to 1.2 compared to 0.9 on 05/11. Plan: ? Furosemide on hold ? Avoid nephrotoxic agents ? Renally dose medications ? Monitor daily CMP ? Lara catheter insertion for strict I's and O's #Community-acquired pneumonia Patient reported having shortness of breath for few days before admission. Denies sick contacts, reports dry cough. Reports orthopnea. Discontinued Ceftriaxone 1 g daily [05/09?05/10] Discontinued Azithromycin 500 mg daily [3/3?3/4] Plan: - Zosyn 4.5g q6hr 05/10-currnet - Vancomycin pharnacy to dose 05/10- current ? DuoNeb inhalations every 4 hours as needed - Cocci IgM negative - sputum culture pending - BC negative - Chest PT #Chronic iron deficiency anemia Plan: - monitor daily CBC - transfuse if Hgb <7 - follow-up outpatient #T2DM 05/11: A1c 5.8 Plan: - home oral medication ore on hold - ISS with Accuchecks ?Glargine 9 units SC daily ? Lispro 2 units with meals #Hypertension -Resumed home amlodipine 10 mg per day #Lower back pain Plan: - pain control as needed Health maintenance: FEN: cardiac diet with fluid restriction DVT prophylaxis: lovenox sc GI prophylaxis: none Dispo: med tele CODE STATUS: Full code Plan of care discussed with attending Dr. Ambrosio, PGY-[address] Donahue and PGY-[address] Gaxiola. Aida Esparza MD, PGY 1. -- ATTESTATION: I saw and examined the patient this morning, and I agree with current management stated by the resident. Will continue to monitor patient during their stay. Patient is a 74-year-old female with past medical history of type 2 diabetes, hypertension, hyperlipidemia, iron deficient anemia who was initially admitted on 05/09/2024 due to acute hypoxic respiratory failure due to bilateral pneumonia. Patient has had extensive bilateral pneumonia as seen on imaging and has required high amounts of oxygen support throughout her stay. She is slowly improving as we try to try to treat down her oxygen requirement as tolerated with antibiotic treatment and incentive spirometry. Will continue to monitor patient closely. Disclaimer: Despite multiple revisions, due to the dictation software being used, the document bellow may not be free of grammatical errors including phonetic/typographic errors. However, this does not deter from our commitment to providing health care in the patient's best interest in mind. Dr. Kamaljit Gaxiola, PGY-3 Attending Provider Attestation/Addendum I have examined the patient, reviewed labs and imaging findings, discussed the case with the resident(s), and reviewed entered orders. I agree with the plan of care as outlined in this note, with these additional summaries/recommendations: Patient seen at bedside. No acute overnight events. Patient endorses mild improvement in shortness of breath although still requiring HFNC although Fio2 requirement slightly improved. Patient encouraged to continue incentive spirometry. Patient admitted for acute hypoxic respiratory failure most likely multifactorial secondary to CHF exacerbation +/- superimposed bacterial pneumonia +/- pulmonary hypertension. Patient has received aggressive diuresis and suspect less likely related to CHF at this time. Pending echocardiogram to start goal-directed medical therapy, and we will follow-up with customer support technician as report still note available. Continue IV antibiotics for bacterial pneumonia. Suspect severe pneumonia is most likely contributing factor at this time. Blood Cultures show no growth at 48 hours and sputum cx results pending. CTA negative for pulmonary embolism. Previous Echo 04/30/22 showed normal RV size and function, estimated RSVP 50mmHg. Continue insulin sliding scale for diabetes mellitus type 2. Continue pain management for chronic lower back pain. Patient updated on the plan and in agreement. Repeat hematology and chemistry panel in AM. Dr. Daily MD
[2024-05-13] MEDS: MELATONIN 3 MG TABLET PO (20:33)
[2024-05-14] VITALS (9 sets, daily range): BP systolic 148–159; BP diastolic 67–76; PULSE 71–84; RESP 16–24; TEMP 36.1–37; O2SAT 92–96
[2024-05-14] MEDS: PIPER/TAZO INJ 3.375 GM in SODIUM CHLORIDE 0.9% (Popper) 50 ML IV ×3 (05:19→22:29)
[2024-05-14 05:52] LABS: Basophils # (Auto) 0.1 Thou/mm3 (0.0-0.2); Basophils % (Auto) 1 % (0-2.5); Eosinophils # (Auto) 0.4 Thou/mm3 (0.0-0.5); Eosinophils % (Auto) 5 % (0-10); Hemoglobin 7.8 g/dL (12.0-16.0); Immature Granulocytes % (Auto) 0 % (0-0); Immature Granulocytes Auto 0.02 Thou/mm3 (0.00-0.00); Lymphocytes % (Auto) 14 % (10-50); Mean Corpuscular HGB Conc 33.9 g/dl (31.0-37.0); Mean Corpuscular Hemoglobin 28.6 pg (25.0-35.0); Mean Corpuscular Volume 84 fL (80-100); Monocytes # (Auto) 0.6 Thou/mm3 (0.0-0.8); Monocytes % (Auto) 9 % (0-12); Neutrophils % (Auto) 71 % (37-80); Nucleated Red Blood Cell % 0 /100 WBC (0); Platelet Count 396 Thou/mm3 (140-440); RDW Standard Deviation 43.4 fL (36.4-46.3); Red Blood Count 2.73 Miln/mm3 (4.00-5.20); White Blood Count 7.1 Thou/mm3 (3.6-11.0)
[2024-05-14 06:28] LABS: Anion Gap 7 (7-16); BUN/Creatinine Ratio 26 Ratio (12-20); Blood Urea Nitrogen 23 mg/dL (9-23); Calcium 9.4 mg/dL (8.3-10.6); Carbon Dioxide 26.8 mMol/L (20.0-31.0); Chloride 106 mMol/L (98-107); Creatinine (Component) 0.9 mg/dL (0.6-1.3); Estimated Creatinine Clearance 52.5 mL/min (>60); Glucose 198 mg/dL (74-106); Osmolality,Calculated 289 (275-295); Potassium 3.6 mMol/L (3.4-5.1); Sodium 140 mMol/L (136-145); eGFR > 60 See Note
[2024-05-14] MEDS: INSULIN LISPRO (AdmeLOG) 1 UNIT/0.01 ML UNIT SC ×3 (07:10→16:20)
[2024-05-14] MEDS: INSULIN LISPRO (AdmeLOG) 1 UNIT/0.01 ML UNIT 2 UNIT SC ×2 (07:11→11:07)
[2024-05-14] MEDS: ENOXAPARIN SOD INJ 40 MG/0.4 ML SYRINGE SC (08:00)
[2024-05-14] MEDS: INSULIN GLARGINE (Lantus) 5 UNIT/0.05 ML (PER 5 UNITS) 9 UNIT SC (08:00)
[2024-05-14] MEDS: LOSARTAN POTASSIUM 25 MG TABLET 50 MG PO (08:00)
[2024-05-14] MEDS: amLODIPine BESYLATE 5 MG TABLET 10 MG PO (08:00)
[2024-05-14] MEDS: VANCOMYCIN/NS 750 MG IVPB 750 MG/150 ML BAG 120 MG IV (10:08)
--- NOTE | 2024-05-14 11:55 | PD.IMPROG ---
Documentation for date of: 05/14/24 Subjective Subjective Interval history: some imporvement Exam Vital Signs Temp Pulse Resp BP Pulse Ox O2 Del Method O2 Flow Rate 97.2 F 77 20 149/72 H 96 High Flow Nasal Cannula 18 05/14/24 08:00 05/14/24 11:37 05/14/24 11:37 05/14/24 08:00 05/14/24 11:37 05/14/24 08:00 05/14/24 11:37 FiO2 40 05/14/24 11:37 Routine HEENT Exam Head: Present normocephalic and atraumatic Eye: Present EOMI and PERRL ENT: Present mucous membranes moist Routine Neck Exam Neck: Present supple and trachea midline Routine Respiratory Exam Respiratory: Present chest non-tender, lungs clear, normal breath sounds and no resp distress Routine Cardiovascular Exam Cardiovascular: Present RRR Routine Abdominal Exam Abdominal: Present soft and normoactive bowel sounds Routine Extremities Exam Extremities: Present full ROM Routine Skin Exam Skin: Present intact, dry and warm Routine Neurological Exam Neurological: Present alert, oriented X3 and CN II-XII intact Routine Psychiatric Exam Psychiatric: Present normal affect and normal thought process Objective Labs 05/14/24 04:39 05/14/24 04:39 Labs: Laboratory Results - last 24 hr 05/14/24 04:39 WBC 7.1 RBC 2.73 L Hgb 7.8 L Hct 23.0 L MCV 84 MCH 28.6 MCHC 33.9 RDW Std Deviation 43.4 Plt Count 396 D Neut % (Auto) 71 Lymph % (Auto) 14 [place] % (Auto) 9 Eos % (Auto) 5 Baso % (Auto) 1 Neut # (Auto) 5.0 Lymph # (Auto) 1.0 [place] # (Auto) 0.6 Eos # (Auto) 0.4 Baso # (Auto) 0.1 Immature Gran # (Auto) 0.02 H Absolute Nucleated RBC 0.00 Immature Gran % 0 Nucleated RBC % 0 Sodium 140 Potassium 3.6 Chloride 106 Carbon Dioxide 26.8 Anion Gap 7 BUN 23 Creatinine 0.9 Estim Creat Clear Calc 52.5 L eGFR > 60 BUN/Creatinine Ratio 26 H Glucose 198 H D Calculated Osmolality 289 Calcium 9.4 ABG Interpretation ABG results: 05/10/24 05/10/24 04:16 11:05 ABG pH 7.46 H 7.44 ABG pCO2 32 35 ABG pO2 64 L 102 D ABG HCO3 23 24 ABG O2 Saturation 94 99 H ABG Base Excess -1 0 Assessment & Plan A&P Narrative Continue current medical management Time Spent With Patient Time: Total time spent is greater than 50% in coordination of care (as documented) at patient's floor/unit and/or counseling patient:
--- NOTE | 2024-05-14 14:15 | ESPR_ITS ---
<Statement entered by Gregoria Donahue MD - 05/14/24 14:39> Patient was seen and examined by me personally. I have directly supervised and reviewed documentation by the team resident and agree with its findings with any exceptions or additional findings as below. Plan of care was discussed with the attending, Dr. Ambrosio. Patient seen at bedside, sitting up and eating breakfast on Hi-Flow 18L at 50% FiO2. She has no current complaints, appears much more comfortable than the previous days and less tachypneic. Will continue to wean down supplemental O2 as tolerated. Continue with chest physiotherapy. Patient endorses using incentive spirometer. MRSA screen is negative, sputum culture grew mixed angelina however sample has 10-25 epithelial cells so quality is not sufficient. Continue IV Zosyn, discontinued IV vancomycin. Adjusted the patient's insulin regimen, glargine from 8 U to 18 U qday and lispro from 2 U to 4 U ACHS according to total insulin received in the last 24 hours. Gregoria Donahue, PGY-2 Documentation for date of: 05/14/24 Subjective Subjective Interval history: Patient was seen and examined by the bedside. No acute overnight events. Patient reports feeling better, does not appear to be in a respiratory distress. Her oxygen requirements have going down. She is on high flow NC at 18 L, FiO2 40%, urine output is 1 L. MRSA screen came back negative, vancomycin was discontinued. Will try to wean her down high flow as tolerated. Will continue with Zosyn IV. Exam Vital Signs Temp Pulse Resp BP Pulse Ox O2 Del Method O2 Flow Rate 97.5 F 80 21 H 157/70 H 96 High Flow Nasal Cannula 18 05/14/24 12:00 05/14/24 12:00 05/14/24 12:00 05/14/24 12:00 05/14/24 12:00 05/14/24 12:00 05/14/24 12:00 FiO2 40 05/14/24 12:00 Narrative Exam Gen: Resting in bed, able to have full conversation. HEENT: NCAT, PERRLA, EOMI, MMM, anicteric conjunctivae. CVS: normal S1 and S2. RRR. No M/R/G. Resp: CTABL. Abd: soft, non-tender, non-distended. BS+ in all 4 quadrants. MSK: Good ROM in BUE & BLE. No ankle edema, no rash. Neuro: CN II-XII grossly intact. Strength 5/5 in BUE & BLE. Alert and oriented x3. Psych: appropriate mood and affect. Objective Labs 05/15/24 05:05 05/15/24 05:05 Labs: Laboratory Results - last 24 hr 05/14/24 04:39 WBC 7.1 RBC 2.73 L Hgb 7.8 L Hct 23.0 L MCV 84 MCH 28.6 MCHC 33.9 RDW Std Deviation 43.4 Plt Count 396 D Neut % (Auto) 71 Lymph % (Auto) 14 [place] % (Auto) 9 Eos % (Auto) 5 Baso % (Auto) 1 Neut # (Auto) 5.0 Lymph # (Auto) 1.0 [place] # (Auto) 0.6 Eos # (Auto) 0.4 Baso # (Auto) 0.1 Immature Gran # (Auto) 0.02 H Absolute Nucleated RBC 0.00 Immature Gran % 0 Nucleated RBC % 0 Sodium 140 Potassium 3.6 Chloride 106 Carbon Dioxide 26.8 Anion Gap 7 BUN 23 Creatinine 0.9 Estim Creat Clear Calc 52.5 L eGFR > 60 BUN/Creatinine Ratio 26 H Glucose 198 H D Calculated Osmolality 289 Calcium 9.4 ABG Interpretation ABG results: 05/10/24 05/10/24 04:16 11:05 ABG pH 7.46 H 7.44 ABG pCO2 32 35 ABG pO2 64 L 102 D ABG HCO3 23 24 ABG O2 Saturation 94 99 H ABG Base Excess -1 0 Quality Measures Quality Measures VTE prophylaxis Advance care planning discussed with:: patient and child Assessment & Plan Assessment Current Active Medications: Generic Name Dose Route Start Last Admin Trade Name Freq PRN Reason Stop Dose Admin Acetaminophen 650 mg 05/09/24 14:21 05/13/24 10:36 Acetaminophen 325 Mg Tablet PO 06/08/24 14:20 650 mg Q6H PRN Administration Fever >100.3 or pain 1-3 Protocol Albuterol/Ipratropium 3 ml 05/11/24 15:46 Albuterol/Ipratropium (Duoneb) Rt Ana 3 Ml Nebu INH 06/08/24 14:59 Q4HRRT PRN shortness of breath Amlodipine Besylate 10 mg 05/12/24 12:15 05/14/24 08:00 Amlodipine Besylate 5 Mg Tablet PO 06/11/24 12:14 10 mg QDAY SAVANNA Administration Dextrose 25 ml 05/09/24 15:37 Dextrose 50%-Water Inj 50 Ml Syringe IV 06/08/24 15:36 Q15MIN PRN BG 50-70 responsive npo pt Dextrose 50 ml 05/09/24 15:37 Dextrose 50%-Water Inj 50 Ml Syringe IV 06/08/24 15:36 Q15MIN PRN BG <50 OR BG <70 & pt unresponsive Enoxaparin Sodium 40 mg 05/10/24 09:00 05/14/24 08:00 Enoxaparin Sod Inj 40 Mg/0.4 Ml Syringe SC 05/24/24 08:59 40 mg QDAY SAVANNA Administration Glucagon 1 mg 05/09/24 15:37 Glucagon Inj 1 Mg Vial IM Q15MIN PRN BG <70, and no IV access Piperacillin Sod/Tazobactam 50 mls @ 12.5 mls/hr 05/10/24 22:00 05/14/24 14:04 Sod 3.375 gm/ Sodium Chloride IV 05/17/24 21:59 12.5 mls/hr Q8HR SAVANNA Administration Insulin Glargine 9 unit 05/12/24 11:15 05/14/24 08:00 Insulin Glargine (Lantus) 5 Unit/0.05 Ml (Per 5 Units) SC 06/11/24 11:14 9 unit QDAY SAVANNA Administration Insulin Human Lispro 0 unit 05/11/24 07:30 05/14/24 11:06 Insulin Lispro (Admelog) 1 Unit/0.01 Ml Unit SC 06/10/24 07:29 6 unit AC SAVANNA Administration Protocol Insulin Human Lispro 2 unit 05/12/24 11:30 05/14/24 11:07 Insulin Lispro (Admelog) 1 Unit/0.01 Ml Unit SC 06/11/24 11:29 2 unit ACHS SAVANNA Administration Ketorolac Tromethamine 15 mg 05/10/24 12:22 05/11/24 14:09 Ketorolac Inj 30 Mg/Ml Vial IVP 05/15/24 12:21 15 mg Q6HR PRN Administration Pain 1-10 Losartan Potassium 50 mg 05/13/24 11:00 05/14/24 08:00 Losartan Potassium 25 Mg Tablet PO 06/12/24 10:59 50 mg QDAY SAVANNA Administration Melatonin 3 mg 05/10/24 00:55 05/13/24 20:33 Melatonin 3 Mg Tablet PO 06/09/24 00:54 3 mg HS SAVANNA Administration Ondansetron HCl 4 mg 05/09/24 14:21 05/10/24 21:21 Ondansetron Inj 2 Mg/Ml Inj 2 Ml IV 06/08/24 14:20 4 mg Q6H PRN Administration NAUSEA OR VOMITING Protocol Oxycodone/Acetaminophen 1 tab 05/09/24 14:21 05/12/24 12:58 Oxycodone/Apap 5/325 Tablet PO 05/14/24 14:20 1 tab Q6H PRN Administration PAIN SCALE 4-6 (Moderate Protocol Pharmacy Consult 1 each 05/10/24 10:27 Vancomycin Pharmacy To Dose 1 Each Each IV 06/09/24 10:26 QDAY PRN CONSULT Sennosides 1 tab 05/09/24 14:21 Senna Tablet PO 06/08/24 14:20 QDAY PRN constipation Protocol Sodium Chloride 3 ml 05/09/24 11:04 05/09/24 11:36 Sodium Chloride Rt Ana 0.9% 3 Ml Nebu INH 06/08/24 11:03 3 ml PRN PRN Administration SOLN Plan The patient is a 74-year-old female with a previous medical history of hypertension, type 2 diabetes, hyperlipidemia, iron deficiency anemia. Presented to the emergency room with chief complaint of shortness of breath and cough for 3 days. She was admitted for AHRF CAP vs CHF exacerbation. #Acute hypoxic respiratory failure #Community-acquired pneumonia Patient reported having shortness of breath for few days before admission. Denies sick contacts, reports dry cough. Reports orthopnea. Discontinued Ceftriaxone 1 g daily [05/09?05/10] Discontinued Azithromycin 500 mg daily [05/09?05/10] Discontinued Vancomycin 05/10- 05/14 Sputum and blood culture negative Cocci IgM negative Plan: - Zosyn 4.5g q6hr 05/10-currnet ? DuoNeb inhalations every 4 hours as needed - Chest PT #Pulmonary hypertension versus CHF exacerbation Patient reports feeling short of breath for 3 days. Denies sick contacts, reports dry cough. Reports orthopnea. CXR showed signs of CHF and pneumonia. ProCal 1.03. EKG unremarkable and troponin I negative. Patient does not have a history of COPD or CAD, CHF, there is a possible concern for type I pulmonary hypertension or CHF exacerbation on top of the pneumonia. Plan: ? Furosemide 40 mg IV BID on hold ? Strict I's and O's ?Fluid restriction 1500 cc daily ?Echo ordered, pending read ? Food Product Inspector consulted, pending recommendations #JAD, improving 05/12: Creatinine went up to 1.2 compared to 0.9 on 05/11. 05/14: Creatinine 0.9, BUN 23, EGFR > 60 Plan: ? Furosemide on hold ? Avoid nephrotoxic agents ? Renally dose medications ? Monitor daily CMP ? Lara catheter insertion for strict I's and O's #Chronic iron deficiency anemia Plan: - monitor daily CBC - transfuse if Hgb <7 - follow-up outpatient #T2DM 05/11: A1c 5.8 05/14: SSI in 24hrs - 18U, will increase glargine to 18U, lispro 4U ACHS. Plan: - home oral medication are on hold - ISS with Accuchecks ?Glargine 18 units SC daily ? Lispro 4 units ACHS #Hypertension - home amlodipine 10 mg per day - losartan 50 mg qday #Lower back pain Plan: - pain control as needed Health maintenance: FEN: cardiac diet with fluid restriction DVT prophylaxis: lovenox sc GI prophylaxis: none Dispo: med tele CODE STATUS: Full code Plan of care discussed with attending Dr. Ambrosio, PGY-[address] Donahue. Aida Esparza MD, PGY 1. Attending Provider Attestation/Addendum I have examined the patient, reviewed labs and imaging findings, discussed the case with the resident(s), and reviewed entered orders. I agree with the plan of care as outlined in this note, with these additional summaries/recommendations: Patient seen at bedside. No acute overnight events. Patient's O2 requirements continue to improve daily and patient has been titrated down to high flow nasal cannula 18 L with FiO2 40%. Patient encouraged to continue incentive spirometry and we will wean O2 supplementation as tolerated. Patient admitted for acute hypoxic respiratory failure most likely multifactorial secondary to severe Bilateral bacterial pneumonia +/- pulmonary hypertension +/- CHF exac. Patient has received aggressive diuresis and suspect less likely related to CHF. Pending echocardiogram to start goal-directed medical therapy if indicated , and we will follow-up with hyperbaric technologist as report still note available. Continue IV antibiotics for bacterial pneumonia. Suspect severe pneumonia is most likely contributing factor at this time. Blood Cultures show no growth at 48 hours. CTA negative for pulmonary embolism but reveal severe extensive bilateral pneumonia with mediastinal lymphadenopathy. Lymphadenopathy most likely secondary to infectious etiology. Previous Echo 04/30/22 showed normal RV size and function, estimated RSVP 50mmHg. Continue insulin sliding scale for diabetes mellitus type 2. Continue pain management for chronic lower back pain. Patient updated on the plan and in agreement. Repeat hematology and chemistry panel in AM. Dr. Daily MD
[2024-05-14] MEDS: INSULIN LISPRO (AdmeLOG) 1 UNIT/0.01 ML UNIT 4 UNIT SC ×2 (16:20→20:18)
[2024-05-14] MEDS: MELATONIN 3 MG TABLET PO (20:18)
[2024-05-14] MEDS: ACETAMINOPHEN 325 MG TABLET 650 MG PO (22:29)
[2024-05-15] VITALS (11 sets, daily range): BP systolic 132–157; BP diastolic 65–97; PULSE 62–100; RESP 13–24; TEMP 36.1–36.4; O2SAT 94–995
[2024-05-15] MEDS: PIPER/TAZO INJ 3.375 GM in SODIUM CHLORIDE 0.9% (Popper) 50 ML IV ×2 (05:12→13:55)
[2024-05-15 06:32] LABS: Basophils # (Auto) 0.1 Thou/mm3 (0.0-0.2); Basophils % (Auto) 1 % (0-2.5); Eosinophils # (Auto) 0.3 Thou/mm3 (0.0-0.5); Eosinophils % (Auto) 4 % (0-10); Hematocrit 24.6 % (36.0-46.0); Immature Granulocytes % (Auto) 0 % (0-0); Immature Granulocytes Auto 0.03 Thou/mm3 (0.00-0.00); Lymphocytes % (Auto) 12 % (10-50); Mean Corpuscular HGB Conc 33.7 g/dl (31.0-37.0); Mean Corpuscular Volume 83 fL (80-100); Monocytes # (Auto) 0.8 Thou/mm3 (0.0-0.8); Monocytes % (Auto) 10 % (0-12); Neutrophils # (Auto) 6.2 Thou/mm3 (1.8-7.7); Neutrophils % (Auto) 74 % (37-80); Nucleated Red Blood Cell % 0 /100 WBC (0); Platelet Count 397 Thou/mm3 (140-440); Red Blood Count 2.96 Miln/mm3 (4.00-5.20); White Blood Count 8.4 Thou/mm3 (3.6-11.0)
[2024-05-15 06:44] LABS: Hemoglobin 8.3 g/dL (12.0-16.0)
[2024-05-15 06:46] LABS: Anion Gap 8 (7-16); BUN/Creatinine Ratio 20 Ratio (12-20); Blood Urea Nitrogen 16 mg/dL (9-23); Calcium 9.2 mg/dL (8.3-10.6); Carbon Dioxide 24.9 mMol/L (20.0-31.0); Chloride 105 mMol/L (98-107); Creatinine (Component) 0.8 mg/dL (0.6-1.3); Estimated Creatinine Clearance 59.1 mL/min (>60); Glucose 226 mg/dL (74-106); Osmolality,Calculated 283 (275-295); Potassium 3.7 mMol/L (3.4-5.1); Sodium 138 mMol/L (136-145); eGFR > 60 See Note
[2024-05-15] MEDS: INSULIN LISPRO (AdmeLOG) 1 UNIT/0.01 ML UNIT SC ×3 (08:21→17:26)
[2024-05-15] MEDS: ENOXAPARIN SOD INJ 40 MG/0.4 ML SYRINGE SC (08:22)
[2024-05-15] MEDS: INSULIN GLARGINE (Lantus) 5 UNIT/0.05 ML (PER 5 UNITS) 18 UNIT SC (08:22)
[2024-05-15] MEDS: INSULIN LISPRO (AdmeLOG) 1 UNIT/0.01 ML UNIT 4 UNIT SC ×4 (08:22→20:38)
[2024-05-15] MEDS: amLODIPine BESYLATE 5 MG TABLET 10 MG PO (08:23)
[2024-05-15] MEDS: LOSARTAN POTASSIUM 25 MG TABLET 100 MG PO (08:24)
--- NOTE | 2024-05-15 09:10 | PD.RESPRO ---
Documentation for date of: 05/15/24 Subjective Subjective Interval history: Patient was seen and examined by the bedside. No acute overnight events. Patient is resting comfortable in the bed. Lara catheter was discontinued yesterday. Patient reports feeling better, denies chest pain, abdominal pain. She was weaned down to 5 L NC, SaO2 97%. Deescalated antibiotics to Augmentin PO. PT evaluation pending. Exam Vital Signs Temp Pulse Resp BP Pulse Ox O2 Del Method O2 Flow Rate 97 F 100 24 H 145/67 H 100 Nasal Cannula 5 05/15/24 08:00 05/15/24 08:24 05/15/24 08:00 05/15/24 08:24 05/15/24 08:00 05/15/24 08:00 05/15/24 08:00 FiO2 30 05/15/24 07:22 Narrative Exam Gen: Resting in bed, saturates well on 5L NC HEENT: NCAT, PERRLA, EOMI, MMM, anicteric conjunctivae. CVS: normal S1 and S2. RRR. No M/R/G. Resp: CTABL. Abd: soft, non-tender, non-distended. BS+ in all 4 quadrants. MSK: Good ROM in BUE & BLE. No ankle edema, no rash. Neuro: CN II-XII grossly intact. Strength 5/5 in BUE & BLE. Alert and oriented x3. Psych: appropriate mood and affect. Objective Labs 05/16/24 04:55 05/16/24 04:55 Labs: Laboratory Results - last 24 hr 05/14/24 05/15/24 21:25 05:05 WBC 8.4 RBC 2.96 L Hgb 8.3 L Hct 24.6 L MCV 83 MCH 28.0 MCHC 33.7 RDW Std Deviation 42.0 Plt Count 397 Neut % (Auto) 74 Lymph % (Auto) 12 [place] % (Auto) 10 Eos % (Auto) 4 Baso % (Auto) 1 Neut # (Auto) 6.2 Lymph # (Auto) 1.0 [place] # (Auto) 0.8 Eos # (Auto) 0.3 Baso # (Auto) 0.1 Immature Gran # (Auto) 0.03 H Absolute Nucleated RBC 0.00 Immature Gran % 0 Nucleated RBC % 0 Sodium 138 Potassium 3.7 Chloride 105 Carbon Dioxide 24.9 Anion Gap 8 BUN 16 Creatinine 0.8 Estim Creat Clear Calc 59.1 L eGFR > 60 BUN/Creatinine Ratio 20 Glucose 226 H Calculated Osmolality 283 Calcium 9.2 Vancomycin Trough 14.0 H ABG Interpretation ABG results: 05/10/24 05/10/24 04:16 11:05 ABG pH 7.46 H 7.44 ABG pCO2 32 35 ABG pO2 64 L 102 D ABG HCO3 23 24 ABG O2 Saturation 94 99 H ABG Base Excess -1 0 Quality Measures Quality Measures VTE prophylaxis Advance care planning discussed with:: child Assessment & Plan Assessment Current Active Medications: Generic Name Dose Route Start Last Admin Trade Name Freq PRN Reason Stop Dose Admin Acetaminophen 650 mg 05/09/24 14:21 05/14/24 22:29 Acetaminophen 325 Mg Tablet PO 06/08/24 14:20 650 mg Q6H PRN Administration Fever >100.3 or pain 1-3 Protocol Albuterol/Ipratropium 3 ml 05/11/24 15:46 Albuterol/Ipratropium (Duoneb) Rt Ana 3 Ml Nebu INH 06/08/24 14:59 Q4HRRT PRN shortness of breath Amlodipine Besylate 10 mg 05/12/24 12:15 05/15/24 08:23 Amlodipine Besylate 5 Mg Tablet PO 06/11/24 12:14 10 mg QDAY SAVANNA Administration Dextrose 25 ml 05/09/24 15:37 Dextrose 50%-Water Inj 50 Ml Syringe IV 06/08/24 15:36 Q15MIN PRN BG 50-70 responsive npo pt Dextrose 50 ml 05/09/24 15:37 Dextrose 50%-Water Inj 50 Ml Syringe IV 06/08/24 15:36 Q15MIN PRN BG <50 OR BG <70 & pt unresponsive Enoxaparin Sodium 40 mg 05/10/24 09:00 05/15/24 08:22 Enoxaparin Sod Inj 40 Mg/0.4 Ml Syringe SC 05/24/24 08:59 40 mg QDAY SAVANNA Administration Glucagon 1 mg 05/09/24 15:37 Glucagon Inj 1 Mg Vial IM Q15MIN PRN BG <70, and no IV access Piperacillin Sod/Tazobactam 50 mls @ 12.5 mls/hr 05/10/24 22:00 05/15/24 05:12 Sod 3.375 gm/ Sodium Chloride IV 05/17/24 21:59 12.5 mls/hr Q8HR SAVANNA Administration Insulin Glargine 18 unit 05/15/24 09:00 05/15/24 08:22 Insulin Glargine (Lantus) 5 Unit/0.05 Ml (Per 5 Units) SC 06/14/24 08:59 18 unit QDAY SAVANNA Administration Insulin Human Lispro 0 unit 05/11/24 07:30 05/15/24 08:21 Insulin Lispro (Admelog) 1 Unit/0.01 Ml Unit SC 06/10/24 07:29 5 unit AC SAVANNA Administration Protocol Insulin Human Lispro 4 unit 05/14/24 17:00 05/15/24 08:22 Insulin Lispro (Admelog) 1 Unit/0.01 Ml Unit SC 06/13/24 16:59 4 unit ACHS SAVANNA Administration Ketorolac Tromethamine 15 mg 05/10/24 12:22 05/11/24 14:09 Ketorolac Inj 30 Mg/Ml Vial IVP 05/15/24 12:21 15 mg Q6HR PRN Administration Pain 1-10 Losartan Potassium 100 mg 05/15/24 09:00 05/15/24 08:24 Losartan Potassium 25 Mg Tablet PO 06/14/24 08:59 100 mg QDAY SAVANNA Administration Melatonin 3 mg 05/10/24 00:55 05/14/24 20:18 Melatonin 3 Mg Tablet PO 06/09/24 00:54 3 mg HS SAVANNA Administration Ondansetron HCl 4 mg 05/09/24 14:21 05/10/24 21:21 Ondansetron Inj 2 Mg/Ml Inj 2 Ml IV 06/08/24 14:20 4 mg Q6H PRN Administration NAUSEA OR VOMITING Protocol Sennosides 1 tab 05/09/24 14:21 Senna Tablet PO 06/08/24 14:20 QDAY PRN constipation Protocol Sodium Chloride 3 ml 05/09/24 11:04 05/09/24 11:36 Sodium Chloride Rt Ana 0.9% 3 Ml Nebu INH 06/08/24 11:03 3 ml PRN PRN Administration SOLN Plan The patient is a 74-year-old female with a previous medical history of hypertension, type 2 diabetes, hyperlipidemia, iron deficiency anemia. Presented to the emergency room with chief complaint of shortness of breath and cough for 3 days. She was admitted for AHRF CAP vs CHF exacerbation. #Acute hypoxic respiratory failure, improving #Community-acquired pneumonia Patient reported having shortness of breath for few days before admission. Denies sick contacts, reports dry cough. Reports orthopnea. Discontinued Ceftriaxone 1 g daily [05/09?05/10] Discontinued Azithromycin 500 mg daily [05/09?05/10] Discontinued Vancomycin 05/10- 05/14 Sputum and blood culture negative Cocci IgM negative Plan: - Discontinued Zosyn 4.5g q6hr 05/10-05/15 - Augmentin 875 mg BID 05/15-current ? DuoNeb inhalations every 4 hours as needed - Chest PT #Pulmonary hypertension versus CHF exacerbation Patient reports feeling short of breath for 3 days. Denies sick contacts, reports dry cough. Reports orthopnea. CXR showed signs of CHF and pneumonia. ProCal 1.03. EKG unremarkable and troponin I negative. Patient does not have a history of COPD or CAD, CHF, there is a possible concern for type I pulmonary hypertension or CHF exacerbation on top of the pneumonia. Plan: ? Furosemide 40 mg IV BID on hold ? Strict I's and O's ?Fluid restriction 1500 cc daily ?Echo ordered, still pending read ? Fence Manufacture Supervisor consulted, pending recommendations #JAD, improving 05/12: Creatinine went up to 1.2 compared to 0.9 on 05/11. 05/14: Creatinine 0.9, BUN 23, EGFR > 60 Plan: ? Furosemide on hold ? Avoid nephrotoxic agents ? Renally dose medications ? Monitor daily CMP ? Lara catheter insertion for strict I's and O's #Chronic iron deficiency anemia Plan: - monitor daily CBC - transfuse if Hgb <7 - follow-up outpatient #T2DM 05/11: A1c 5.8 05/14: SSI in 24hrs - 18U, will increase glargine to 18U, lispro 4U ACHS. Plan: - home oral medication are on hold - ISS with Accuchecks ?Glargine 18 units SC daily ? Lispro 4 units ACHS #Hypertension - home amlodipine 10 mg per day - losartan dose increased to 100 mg qday #Lower back pain Plan: - pain control as needed Health maintenance: FEN: cardiac diet with fluid restriction DVT prophylaxis: lovenox sc GI prophylaxis: none Dispo: med tele CODE STATUS: Full code Plan of care discussed with attending Dr. Ambrosio, PGY-[address] Donahue. Aida Esparza MD, PGY 1. Attending Provider Attestation/Addendum I have examined the patient, reviewed labs and imaging findings, discussed the case with the resident(s), and reviewed entered orders. I agree with the plan of care as outlined in this note, with these additional summaries/recommendations: Patient seen at bedside. No acute overnight events. Today patient was successfully titrated from high flow nasal cannula to nasal cannula. Patient currently requiring 5 L nasal cannula. We will continue to titrate O2 supplementation. Patient encouraged to continue incentive spirometry. Patient admitted for acute hypoxic respiratory failure most likely multifactorial secondary to severe Bilateral bacterial pneumonia +/- pulmonary hypertension +/- CHF exac. Patient has received aggressive diuresis and suspect less likely related to CHF at this time. Continue IV antibiotics for bacterial pneumonia. Suspect severe pneumonia is most likely contributing factor at this time. Blood Cultures show no growth at 48 hours. CTA negative for pulmonary embolism but reveal severe extensive bilateral pneumonia with mediastinal lymphadenopathy. Lymphadenopathy most likely secondary to infectious etiology. Previous Echo 04/30/22 showed normal RV size and function, estimated RSVP 50mmHg. Continue insulin sliding scale for diabetes mellitus type 2. Continue pain management for chronic lower back pain. Patient updated on the plan and in agreement. Repeat hematology and chemistry panel in AM. Dr. Daily MD
--- NOTE | 2024-05-15 10:08 | CHAP ---
Patient was visited by the Spiritual Care Volunteer who prayed for them. (Volunteer was in the hospital from 09:04-10:08).
[2024-05-15] MEDS: KETOROLAC INJ 30 MG/ML VIAL 15 MG IVP (12:07)
[2024-05-15] MEDS: AMOXICILLIN/POT CLAV 875 TABLET 1 TAB PO (20:38)
[2024-05-15] MEDS: MELATONIN 3 MG TABLET PO (20:38)
[2024-05-15] MEDS: ACETAMINOPHEN 325 MG TABLET 650 MG PO (23:08)
--- NOTE | 2024-05-15 23:13 | PC.NURSE ---
Per patient, stated that she cannot sleep and would like to know if she could have anything else to help her go to sleep. Nurse contacted and spoke to hospitalist Dr. Catherine and made him aware of patient's chief complaint. Per MD. he will put in an order. Patient also stated that she had a headache and her PRN tylenol was given for the headache.
[2024-05-15] MEDS: DiphenhydrAMINE ELIX 25 MG/10 ML UDC 12.5 MG PO (23:26)
[2024-05-16] VITALS (11 sets, daily range): BP systolic 140–167; BP diastolic 73–97; PULSE 66–83; RESP 14–24; TEMP 36.3–37.2; O2SAT 93–98
[2024-05-16 06:26] LABS: Basophils # (Auto) 0.1 Thou/mm3 (0.0-0.2); Basophils % (Auto) 1 % (0-2.5); Eosinophils # (Auto) 0.3 Thou/mm3 (0.0-0.5); Eosinophils % (Auto) 3 % (0-10); Hematocrit 23.3 % (36.0-46.0); Immature Granulocytes % (Auto) 1 % (0-0); Immature Granulocytes Auto 0.06 Thou/mm3 (0.00-0.00); Lymphocytes # (Auto) 1.3 Thou/mm3 (1.0-4.8); Lymphocytes % (Auto) 15 % (10-50); Mean Corpuscular HGB Conc 33.5 g/dl (31.0-37.0); Mean Corpuscular Hemoglobin 28.3 pg (25.0-35.0); Mean Corpuscular Volume 84 fL (80-100); Monocytes # (Auto) 0.8 Thou/mm3 (0.0-0.8); Monocytes % (Auto) 9 % (0-12); Neutrophils # (Auto) 6.3 Thou/mm3 (1.8-7.7); Neutrophils % (Auto) 71 % (37-80); Nucleated Red Blood Cell # 0.02 Thou/mm3 (0.00-0.00); Nucleated Red Blood Cell % 0 /100 WBC (0); Platelet Count 472 Thou/mm3 (140-440); RDW Standard Deviation 43.2 fL (36.4-46.3); Red Blood Count 2.76 Miln/mm3 (4.00-5.20); White Blood Count 8.8 Thou/mm3 (3.6-11.0)
[2024-05-16 06:37] LABS: Hemoglobin 7.8 g/dL (12.0-16.0)
[2024-05-16 06:38] LABS: Anion Gap 8 (7-16); BUN/Creatinine Ratio 21 Ratio (12-20); Blood Urea Nitrogen 15 mg/dL (9-23); Calcium 9.2 mg/dL (8.3-10.6); Chloride 107 mMol/L (98-107); Creatinine (Component) 0.7 mg/dL (0.6-1.3); Estimated Creatinine Clearance 68.1 mL/min (>60); Glucose 163 mg/dL (74-106); Osmolality,Calculated 284 (275-295); Potassium 3.9 mMol/L (3.4-5.1); Sodium 140 mMol/L (136-145); eGFR > 60 See Note
[2024-05-16] MEDS: INSULIN LISPRO (AdmeLOG) 1 UNIT/0.01 ML UNIT SC ×2 (07:55→11:47)
[2024-05-16] MEDS: INSULIN LISPRO (AdmeLOG) 1 UNIT/0.01 ML UNIT 4 UNIT SC ×2 (07:56→11:49)
[2024-05-16] MEDS: LOSARTAN POTASSIUM 25 MG TABLET 100 MG PO (09:13)
[2024-05-16] MEDS: ENOXAPARIN SOD INJ 40 MG/0.4 ML SYRINGE SC (09:14)
[2024-05-16] MEDS: AMOXICILLIN/POT CLAV 875 TABLET 1 TAB PO (09:14)
[2024-05-16] MEDS: amLODIPine BESYLATE 5 MG TABLET 10 MG PO (09:14)
--- NOTE | 2024-05-16 09:31 | ESPR_ITS ---
Documentation for date of: 05/16/24 Subjective Subjective Interval history: pt improving for PT evaluation Exam Vital Signs Temp Pulse Resp BP Pulse Ox O2 Del Method O2 Flow Rate 98.9 F 75 14 143/73 H 95 Nasal Cannula 3 05/16/24 08:00 05/16/24 09:14 05/16/24 08:00 05/16/24 09:14 05/16/24 08:00 05/16/24 08:00 05/16/24 08:00 FiO2 30 05/15/24 07:22 Routine HEENT Exam Head: Present normocephalic and atraumatic Eye: Present EOMI and PERRL ENT: Present mucous membranes moist Routine Neck Exam Neck: Present supple and trachea midline Routine Respiratory Exam Respiratory: Present chest non-tender, lungs clear, normal breath sounds and no resp distress Routine Cardiovascular Exam Cardiovascular: Present RRR Routine Abdominal Exam Abdominal: Present soft and normoactive bowel sounds Routine Extremities Exam Extremities: Present full ROM Routine Skin Exam Skin: Present intact, dry and warm Routine Neurological Exam Neurological: Present alert, oriented X3 and CN II-XII intact Routine Psychiatric Exam Psychiatric: Present normal affect and normal thought process Objective Labs 05/16/24 04:55 05/16/24 04:55 Labs: Laboratory Results - last 24 hr 05/16/24 04:55 WBC 8.8 RBC 2.76 L Hgb 7.8 L Hct 23.3 L MCV 84 MCH 28.3 MCHC 33.5 RDW Std Deviation 43.2 Plt Count 472 H D Neut % (Auto) 71 Lymph % (Auto) 15 [place] % (Auto) 9 Eos % (Auto) 3 Baso % (Auto) 1 Neut # (Auto) 6.3 Lymph # (Auto) 1.3 [place] # (Auto) 0.8 Eos # (Auto) 0.3 Baso # (Auto) 0.1 Immature Gran # (Auto) 0.06 H Absolute Nucleated RBC 0.02 H Immature Gran % 1 H Nucleated RBC % 0 Sodium 140 Potassium 3.9 Chloride 107 Carbon Dioxide 25.0 Anion Gap 8 BUN 15 Creatinine 0.7 Estim Creat Clear Calc 68.1 eGFR > 60 BUN/Creatinine Ratio 21 H Glucose 163 H D Calculated Osmolality 284 Calcium 9.2 ABG Interpretation ABG results: 05/10/24 05/10/24 04:16 11:05 ABG pH 7.46 H 7.44 ABG pCO2 32 35 ABG pO2 64 L 102 D ABG HCO3 23 24 ABG O2 Saturation 94 99 H ABG Base Excess -1 0 Assessment & Plan A&P Narrative Continue current medical management Time Spent With Patient Time: Total time spent is greater than 50% in coordination of care (as documented) at patient's floor/unit and/or counseling patient:
--- NOTE | 2024-05-16 09:41 | PC.SS ---
Follow up note: Patient has been weaned down from high flow 02 to 3L of 02. Patient has attempted to work with PT. Last PT notes on 05/11/24. Patient was not able to work with PT. They will need to attempt again. Patient resides alone. Pending PT rec's. Patient was not using 02 prior to hospitalization. She may need to be tested for 02 needs.
[2024-05-16] MEDS: INSULIN GLARGINE (Lantus) 5 UNIT/0.05 ML (PER 5 UNITS) 18 UNIT SC (09:53)
--- NOTE | 2024-05-16 10:59 | PC.NURSE ---
Pt ambulating in hallway on RA, O2 SATS 87%. Ambulating with 2L O2, SATS 94%.
--- NOTE | 2024-05-16 13:13 | PC.PT ---
PT eval only. Patient is xI with bed mobility, transfers, and ambulation using O2. Patient is safe to ambulate to the bathroom and in the [place] using O2 and with 1 staff assist for safety with O2 management. RN made aware.
--- NOTE | 2024-05-16 13:53 | PC.SS ---
Follow up note: set up new 02 through [facility]. 02 to be delivered. D/c for today
--- NOTE | 2024-05-16 17:49 | ESDS_ITS ---
Planned Discharge Date 05/16/24 DS: Providers Provider Date of admission: 05/09/24 14:21 Primary care physician: Physician No Primary/Family Admitting Provider: Matthew Reyna MD Attending Provider on Admission: Angelo Ambrosio MD Consults: 05/09/24 17:39 Referral Delroy Routine Comment: Referral Respiratory Therapy Routine Comment: 05/11/24 10:55 Consult to Cardiology Routine Comment: Consulting Provider: Sathya Villar 05/15/24 07:00 Referral Physical Therapy Routine Comment: Physician Instructions: Attending Provider on DC: Angelo Ambrosio MD Discharging Provider: Gregoria Donahue MD DS: Diagnosis Problem List Completed Was Problem List Reviewed/Reconciled?: Yes Hospital Course Hospital Course Hospital course: Reason for hospitalization: Community-acquired pneumonia The patient is a 74-year-old female with a past medical history of hypertension, type 2 diabetes, hyperlipidemia, and iron deficiency anemia who presented to the emergency room on 05/09/2024 due to difficulty breathing for the past 3 days. Patient endorsed pleuritic chest pain and cough as well as orthopnea. There was no documented history of CHF and in the chart and last echo was done 2 years ago which showed normal function with EF of 55-60% but moderate pulmonary hypertension. During ED evaluation BNP was elevated at 543 and CXR was indicative of pulmonary vascular congestion as well as superimposed pneumonia. Procal was elevated at 1.03, WBC 13, and patient was hypoxic requiring 4L O2. Patient was subsequently admitted for community acquired pneumonia and/or new onset CHF. Echo, strict I&Os, and fluid restriction of 1500 ml were ordered. She was started on IV ceftriaxone and azithromycin and DuoNebs as well as PO Lasix. Over the next night, patient's O2 requirements increased requiring Hi-Flow at 29L and 85% FiO2 at first to maintain saturation >90. Antibiotics were escalated to Zosyn and vancomycin. She was more aggressively diuresed and her journeyman tool and die maker Dr. Villar was consulted, who suggested to continue pneumonia treatment. CTA was obtained as the patient was also tachypneic, resulted negative for PE but showed extensive bilateral pneumonia. Pleural drainage was attempted for possible effusion but there was not sufficient fluid. Echo preliminary findings suggested a normal EF but pulmonary hypertension present. Patient diuresed well. Patient was given BiPAP treatment for 2 days. Chest physiotherapy and incentive spirometer were started. Cultures including sputum, blood, and MRSA were negative. She maintained normal mentation and mobility. By Day 6 of hospitalization patient had great clinical improvement and was able to wean off of Hi-Flow. Antibiotics were de-escalated to Augmentin and patient finished a 7- day course of antibiotics within hospitalization. She was determined stable for discharge with home O2. She was instructed to follow closely with her PCP and Architectural Engineer and given return precautions. Discharge Recommendations: -Follow up with PCP within 1 week of discharge -Follow up with your Architectural Engineer Dr. Villar within 4 weeks of discharge -You have completed the course of antibiotics in the hospital for pneumonia -It may take several weeks for your lungs to fully heal from the pneumonia -Wear O2 at all times until follow up with PCP -Obtain a pulse oximeter to measure your O2 at home -Continue rest of medications as previously prescribed -Return to the ED or call EMS if symptoms return and/or worsen. Hospital Diagnoses: #Acute hypoxic respiratory failure #Community-acquired pneumonia #Pulmonary hypertension versus CHF exacerbation #JAD, resolved #Chronic iron deficiency anemia #T2DM #Hypertension #Lower back pain Patient plan of care was discussed with the attending physician, Dr. Ambrosio. Gregoria Donahue, PGY-2 Time Spent with Patient Time attestation: Total time spent providing and/or coordinating discharge services: Exam Vital Signs Temp Pulse Resp BP Pulse Ox O2 Del Method O2 Flow Rate 97.4 F 80 18 167/84 H 96 Nasal Cannula 3 05/16/24 16:00 05/16/24 16:00 05/16/24 16:00 05/16/24 16:00 05/16/24 16:00 05/16/24 11:36 05/16/24 11:36 FiO2 30 05/15/24 07:22 Narrative Exam Gen: Resting in bed, saturates well on 2L NC HEENT: NCAT, PERRLA, EOMI, MMM, anicteric conjunctivae. CVS: normal S1 and S2. RRR. No M/R/G. Resp: CTABL. Abd: soft, non-tender, non-distended. BS+ in all 4 quadrants. MSK: Good ROM in BUE & BLE. No ankle edema, no rash. Neuro: CN II-XII grossly intact. Strength 5/5 in BUE & BLE. Alert and oriented x3. Psych: appropriate mood and affect. Discharge Plan Plan Patient Disposition: HOME (Self Care) Patient condition on transfer: Stable Care Plan Goals: Discharge Recommendations: -Follow up with PCP within 1 week of discharge -Follow up with your Architectural Engineer Dr. Villar within 4 weeks of discharge -You have completed the course of antibiotics in the hospital for pneumonia -It may take several weeks for your lungs to fully heal from the pneumonia -Wear O2 at all times until follow up with PCP -Obtain a pulse oximeter to measure your O2 at home -Continue rest of medications as previously prescribed -Return to the ED or call EMS if symptoms return and/or worsen. Prescriptions/Referrals Prescriptions/Med Rec: Continued ferrous sulfate 325 mg (65 mg iron) tablet,delayed release (DR/EC) 325 mg PO QDAY Qty: 30 0RF Levemir U-100 Insulin 100 unit/mL solution 30 unit SUBCUT QDAY 30 Days Qty: 10 2RF Rx Instructions: Deliver to [facility] in [place] amlodipine 10 mg tablet 10 mg PO QDAY Qty: 30 0RF Tradjenta 5 mg tablet 5 mg PO QDAY Qty: 30 0RF losartan 50 mg tablet 50 mg PO QDAY Qty: 30 0RF trazodone 50 mg tablet 50 mg PO HS PRN (Reason: Pain) Qty: 30 0RF metformin 1,000 mg tablet 1,000 mg PO BID 30 Days Qty: 60 0RF Jardiance 25 mg Tablet 25 mg PO QDAY Referrals: No Primary/Family,Physician [Primary Care Provider] - Outpatient Orders (i.e. Home Health, Labs, Imaging): DME: Oxygen (Routine) Location: None Selected Ordered By: Gregoria Donahue Patient/Caregiver Discharge Instructions Discharge Activity: activity as tolerated and wear oxygen at all times Education Materials: What Is Pneumonia?, Preventing Pneumonia, When You Have Pneumonia Print Language: Greenlandic Stand Alone Forms: [facility] Award Info., Patient Portal Info Letter Discharge Order Discharge Orders: Discharge (Routine); Ordered 05/16/24 Ordered By: Gregoria Donahue Quality Discharge Quality Measures VTE prophylaxis Attestestation MD Attestation I have examined the patient, reviewed labs and imaging findings, discussed the case with the resident(s), and reviewed entered orders. I agree with the plan of care as outlined in this note. Dr. Daily MD
== END 2024-05-16 18:13 | disposition home or self-care (01) | DRG 193 ==
LOC: SERX 13:46 → SERHOLD 14:49 → S3NX 17:18
PROVIDERS: Nurse Practitioner Family; Student in an Organized Health Care Education/Training Program; Admitting Provider Internal Medicine; Emergency Provider Emergency Medicine; Visit Provider Student in an Organized Health Care Education/Training Program
DX: J15.9 Unspecified bacterial pneumonia (principal); I50.31 Acute diastolic (congestive) heart failure; J96.01 Acute respiratory failure with hypoxia; N17.9 Acute kidney failure, unspecified; I11.0 Hypertensive heart disease with heart failure; D50.9 Iron deficiency anemia, unspecified; E11.9 Type 2 diabetes mellitus without complications; E78.5 Hyperlipidemia, unspecified; M54.50 Low back pain, unspecified; E66.9 Obesity, unspecified; Z68.33 Body mass index [BMI] 33.0-33.9, adult; G89.29 Other chronic pain; I27.20 Pulmonary hypertension, unspecified; Z79.899 Other long term (current) drug therapy; Z79.84 Long term (current) use of oral hypoglycemic drugs; Z79.4 Long term (current) use of insulin
CPT/HCPCS: 36415; 36600; 71045; 71046; 71275; 76999; 80048; 80053; 80202; 81001; 82150; 82803; 82945; 83036; 83605; 83615; 83735; 83880; 84100; 84145; 84157; 84484; 85025; 85610; 85730; 86331; 86635; 87040; 87070; 87075; 87081; 87205; 87400; 87811; 89051; 93005; 93225; 93306; 94640; 94660; 94664; 94667; 97162; 99285; A4649; A9270; J0456; J0696; J1650; J1815; J1885; J1940; J2405; J2543; J3370; J7030; J7050; Q9967

== ENCOUNTER 2024-06-04 11:17 | Inpatient (IN) | payer MEDICARE, MEDICAID, SELFPAY ==
[2024-06-04] VITALS (17 sets, daily range): BP systolic 132–171; BP diastolic 64–86; PULSE 69–94; RESP 17–27; TEMP 36.5–37.1; O2SAT 89–98; BMI 24.4
--- NOTE | 2024-06-04 12:50 | XR_ITS ---
Examination: AP chest single view Technique: AP portable semiupright chest single view Exam date and time: June 04, 2024, 1313 hrs. Comparison May 10, 2024 Indications: Shortness of breath one month. Findings: Mild chronic heart failure pattern. Moderate enlargement cardiac contour. Prominent vascular congestion including central vascular engorgement Early septal edema at the lung bases Impression: Mild heart failure Small right moderate left pleural effusions
--- NOTE | 2024-06-04 12:50 | EKG_ITS ---
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
--- NOTE | 2024-06-04 12:54 | PD.EDRME ---
Rapid Medical Screening Exam [facility] Arrival date/time: 06/04/24 11:17 CC: Shortness of breath HPI ongoing for 1 month progressive worsening. Denies chest pain but complaining of upper back pain. Has a history of diabetes hypertension hyperlipidemia and a history of anemia. On initial assessment oxygen saturations at 8889% on room air tachypneic but not tachycardic. Chief Complaint: Shortness of Breath/Dyspnea Time Seen by Provider: 06/04/24 11:55
--- NOTE | 2024-06-04 13:09 | PD.EDSOB ---
ED SOB =RME/HPI General Chief Complaint: Shortness of Breath/Dyspnea Stated Complaint: SOB Time Seen by Provider: 06/04/24 11:55 Arrival date/time: 06/04/24 11:17 RME / HPI RME / HPI Narrative: 06/04/24 11:17 CC: Shortness of breath HPI ongoing for 1 month progressive worsening. Denies chest pain but complaining of upper back pain. Has a history of diabetes hypertension hyperlipidemia and a history of anemia. On initial assessment oxygen saturations at 8889% on room air tachypneic but not tachycardic. DR. FRANCO MAIN ED EVALUATION: 74 year old female with past medical history significant for CHF, hypertension, type 2 diabetes, hyperlipidemia, and iron deficiency anemia presents to the Emergency Department with complaints of shortness of breath and dyspnea on exertion onset 1 month. Associated symptoms include generalized weakness, bilateral leg swelling, and a dry cough. Patient denies any of the following: congestion, phlegm, fevers, chills, chest pain, or any other symptoms at this time. Related Data Home Medications ?Medication ?Instructions ?Recorded ?Confirmed empagliflozin 25 mg tablet 25 mg PO QDAY 04/30/22 05/12/24 (Jardiance) Previous Rx's ?Medication ?Instructions ?Recorded amlodipine 10 mg tablet 10 mg PO QDAY #30 tabs 05/06/24 trazodone 50 mg tablet 50 mg PO HS PRN Pain #30 tabs 05/06/24 ferrous sulfate 325 mg (65 mg 325 mg PO QDAY #30 tabs 05/19/24 iron) tablet,delayed release insulin detemir U-100 100 unit/mL 30 unit (0.3 mL) subcut QDAY 30 05/19/24 subcutaneous solution (Levemir days #10 mL U-100 Insulin) linagliptin 5 mg tablet (Tradjenta) 5 mg PO QDAY #30 tabs 05/19/24 losartan 50 mg tablet 50 mg PO QDAY #30 tabs 05/19/24 metformin 1,000 mg tablet 1,000 mg PO BID 30 days #60 tabs 05/19/24 insulin glargine 100 unit/mL (3 30 unit (0.3 mL) subcut QAM #15 mL 05/23/24 mL) subcutaneous pen (Basaglar KwikPen U-100 Insulin) Allergies Allergy/AdvReac Type Severity Reaction Status Date / Time No Known Allergies Allergy Verified 05/09/24 10:52 Review of Systems Review of Systems Systems Reviewed: All systems reviewed, normal except as documented Past Medical History Past Medical History CARDIAC: Positive Atherosclerotic Heart Disease and Hypertension RESPIRATORY: Positive Asthma ENT: Positive Cataracts ENDOCRINE: Positive Diabetes Mellitus Type 2 (15 years) HEMATOLOGIC: Positive Anemia Social History SMOKING STATUS: Never smoker SECOND HAND EXPOSURE: No SUBSTANCE USE: does not use ALCOHOL: Never ED Exam Narrative Physical exam: GENERAL APPEARANCE: alert and oriented x 4, well-developed, well-nourished, no acute distress VITALS: All vitals were reviewed and the pulse ox is 96% on 2 L/min via a nasal cannula. HEENT: Normocephalic, atraumatic; pupils equal, round, reactive to light; EOMI; mucous membranes pink, moist; oropharynx clear NECK: Supple LUNGS: CTABL; no wheezes, no rales, no rhonchi HEART: Regular rate, regular rhythm; normal S1, S2; no murmurs ABDOMEN: non distended; normal BS; soft, no tenderness, no guarding, no rebound; no masses, no organomegaly, no hernia BACK: no CVA tenderness EXTREMITIES: atraumatic; there is 2+ pitting edema NEUROLOGIC: awake; alert and oriented x4; cranial nerves II-XII grossly intact; no focal sensory or motor deficits PSYCHIATRIC: appropriate mood and affect SKIN: warm, dry, normal color; no rashes Course Quality Measures none Orders Category Date Time Status EKG (ED ONLY) *Do not use* NOW Care 06/04/24 12:50 Completed Occult Blood,Stool (Nursing) NOW Care 06/04/24 14:24 Active Transfuse,blood/blood products NOW Care 06/04/24 14:24 Active EKG (ED Only) Stat Exams 06/04/24 12:50 Draft XR chest 1V Stat Exams 06/04/24 12:50 Completed B-Type Natriuretic Peptide Stat Lab 06/04/24 13:29 Completed CBC Stat Lab 06/04/24 13:29 Completed Comprehensive Metabolic Panel Stat Lab 06/04/24 13:29 Completed Drug Screen,Urine Stat Lab 06/04/24 13:31 Completed Iron Panel Stat Lab 06/04/24 13:20 Completed LDH (Lactate Dehydrogenase) Stat Lab 06/04/24 13:29 Completed Magnesium Stat Lab 06/04/24 13:29 Completed Partial Thromboplastin Time Stat Lab 06/04/24 13:29 Completed Prothrombin Time with INR Stat Lab 06/04/24 13:29 Completed Red Blood Cells Stat Lab 06/04/24 13:29 Results Troponin I Stat Lab 06/04/24 13:29 Completed Type and Screen Stat Lab 06/04/24 13:29 Results Urinalysis Stat Lab 06/04/24 13:31 Completed Vital Signs Vital signs: Vital Signs Temperature 98.7 F 06/04/24 11:17 Pulse Rate 69 06/04/24 11:17 Respiratory Rate 17 06/04/24 11:17 Blood Pressure 134/75 H 06/04/24 11:17 Pulse Oximetry (%) 89 L 06/04/24 11:17 Oxygen Delivery Method Room Air 06/04/24 11:17 Shortness of Breath / Dyspnea MDM Narrative MDM Narrative:: Marycruz Murray, vinay scribing for and in the presence of Dr. Franco. Patient data External records reviewed:: [facility] previous records (Reviewed last admission discharge dated 05/16/24, patient admitted for the following: CHF (congestive heart failure)) Clinical information provided by:: patient Social determinants that could affect healthcare access:: none Patient has the following chronic illnesses:: CHF, hypertension, type 2 diabetes, hyperlipidemia, and iron deficiency anemia How is presenting disease/condition affected by chronic disease/condition?: exacerbated by Evaluation data The following diagnostics were reviewed and interpreted by me:: lab results, radiology exam(s) and EKG tracing(s) (EKG#1: EKG at 1255 hours. Interpreted by me: sinus rhythm, rate 69, Q waves in V1-V3, artifact, IVCD) Lab and/or radiology exams considered but not ordered:: none Interpretation Summary: Procedure(s): XR chest 1V Accession Number(s): [id number] cc: Elkin Hardin NP; Anthony Valenzuela MD~ Examination: AP chest single view Technique: AP portable semiupright chest single view Exam date and time: June 04, 2024, 1313 hrs. Comparison May 10, 2024 Indications: Shortness of breath one month. Findings: Mild chronic heart failure pattern. Moderate enlargement cardiac contour. Prominent vascular congestion including central vascular engorgement Early septal edema at the lung bases Impression: Mild heart failure Small right moderate left pleural effusions Dictated By: Anthony Valenzuela MD Medications / Prescriptions Medications or Prescriptions considered but not ordered:: none Medication administrations:: see above if any Consultations Consultation(s) initiated? (list below): No Diagnosis Shortness of Breath Differential Diagnosis: acute exacerbation of chronic obstructive airways disease, congestive heart failure, community acquired pneumonia, asthma with exacerbation and pulmonary embolism Most likely diagnosis given after review of the tests above:: Symptomatic anemia Dyspnea Transfusion of blood during current hospitalization Admission Indicated Admission indicated?: not indicated Admission Request Was there a request for admission?: No Disposition Plan Disposition Plan: Discharge Discharge Attestation Discharge Attestation: The patient and all family members were given an opportunity to ask questions and understood the discharge instructions. Discharge instructions specifically effects, indications for sooner follow up or return to the emergency department, and the expected course of current diagnosis. Patient condition: Stable Discharge Plan Prescriptions/Referrals Prescriptions/Med Rec: No Action amlodipine 10 mg tablet 10 mg PO QDAY Qty: 30 0RF trazodone 50 mg tablet 50 mg PO HS PRN (Reason: Pain) Qty: 30 0RF Levemir U-100 Insulin 100 unit/mL solution 30 unit SUBCUT QDAY 30 Days Qty: 10 2RF Rx Instructions: Deliver to [facility] in [place] Tradjenta 5 mg tablet 5 mg PO QDAY Qty: 30 0RF losartan 50 mg tablet 50 mg PO QDAY Qty: 30 0RF metformin 1,000 mg tablet 1,000 mg PO BID 30 Days Qty: 60 0RF ferrous sulfate 325 mg (65 mg iron) tablet,delayed release (DR/EC) 325 mg PO QDAY Qty: 30 0RF insulin glargine [Basaglar KwikPen U-100 Insulin] 100 unit/mL (3 mL) insulin pen 30 unit subcut QAM Qty: 15 0RF Jardiance 25 mg Tablet 25 mg PO QDAY [facility] BENCH HAND MACHINE,Ivonne Pulido NP [Primary Care Provider] - In 1 week Problem List Clinical Impression: Symptomatic anemia, Dyspnea, Transfusion of blood during current hospitalization Patient/Caregiver Discharge Instructions Education Materials: ED Anemia Type Not Specified, ED Shortness of Breath (Dyspnea) Print Language: Kiswahili
[2024-06-04 13:38] LABS: Collection Type, Urine Clean Catch
[2024-06-04 13:45] LABS: Basophils # (Auto) 0.1 Thou/mm3 (0.0-0.2); Basophils % (Auto) 1 % (0-2.5); Eosinophils # (Auto) 0.1 Thou/mm3 (0.0-0.5); Eosinophils % (Auto) 2 % (0-10); Hematocrit 22.6 % (36.0-46.0); Immature Granulocytes % (Auto) 0 % (0-0); Immature Granulocytes Auto 0.03 Thou/mm3 (0.00-0.00); Lymphocytes # (Auto) 1.1 Thou/mm3 (1.0-4.8); Lymphocytes % (Auto) 16 % (10-50); Mean Corpuscular HGB Conc 32.3 g/dl (31.0-37.0); Mean Corpuscular Hemoglobin 28.5 pg (25.0-35.0); Mean Corpuscular Volume 88 fL (80-100); Monocytes # (Auto) 0.6 Thou/mm3 (0.0-0.8); Monocytes % (Auto) 9 % (0-12); Neutrophils # (Auto) 4.8 Thou/mm3 (1.8-7.7); Neutrophils % (Auto) 72 % (37-80); Nucleated Red Blood Cell % 0 /100 WBC (0); Platelet Count 256 Thou/mm3 (140-440); RDW Standard Deviation 54.8 fL (36.4-46.3); Red Blood Count 2.56 Miln/mm3 (4.00-5.20); White Blood Count 6.7 Thou/mm3 (3.6-11.0)
[2024-06-04 13:48] LABS: Hemoglobin 7.3 g/dL (12.0-16.0)
[2024-06-04 13:50] LABS: Bilirubin,Urine Negative (Negative); Blood,Urine Negative (Negative); Clarity,Urine Clear (Clear/Hazy); Color,Urine Yellow (Lt Yel-Yel); Glucose, Urine Negative (Negative); Ketones,Urine Negative (Negative); Leukocyte Esterase,Urine Negative (Negative); Nitrite,Urine Negative (Negative); PH,Urine 6.5 (5.0-7.0); Protein,Urine 2+ (Neg - Trace); RBC,Urine 3 /hpf (0-3); Specific Gravity,Urine 1.015 (1.001-1.035); Squamous Epithelial Cell,Urine < 1 /hpf (0-5); Urobilinogen,Urine Negative mg/dL (0.0-1.0); WBC,Urine 1 /hpf (0-5)
[2024-06-04 13:58] LABS: Partial Thromboplastin Time 25.6 Seconds (22.0-36.0); Prothrombin Time 10.8 Seconds (9.0-12.2)
[2024-06-04 13:59] LABS: B-Type Natriuretic Peptide 334 pg/mL (0-100)
[2024-06-04 14:01] LABS: Amphetamine/Methamp Scrn,U Negative (Negative); Barbiturate Screen,Urine Negative (Negative); Benzodiazepines Screen,Urine Negative (Negative); Benzoylecgonine Screen, Ur Negative (Negative); Fentanyl Screen,Urine Negative (Negative); Opiate Screen,Urine Negative (Negative); THC Screen,Urine Negative (Negative)
[2024-06-04 14:02] LABS: Alanine Aminotransferase 24 U/L (10-49); Albumin/Globulin Ratio 1.2 (1.2-2.2); Alkaline Phosphatase 66 U/L (46-116); Anion Gap 8 (7-16); Aspartate Amino Transferase 12 U/L (0-34); BUN/Creatinine Ratio 21 Ratio (12-20); Bilirubin,Total 0.8 mg/dL (0.3-1.2); Blood Urea Nitrogen 19 mg/dL (9-23); Calcium 9.5 mg/dL (8.3-10.6); Calcium (Corrected) 9.5 mg/dL (8.5-10.1); Carbon Dioxide 22.4 mMol/L (20.0-31.0); Chloride 107 mMol/L (98-107); Creatinine (Component) 0.9 mg/dL (0.6-1.3); Estimated Creatinine Clearance 45.1 mL/min (>60); Globulin 3.4 gm/dL (2.3-3.5); Glucose 169 mg/dL (74-106); LDH (Lactate Dehydrogenase) 200 U/L (120-246); Magnesium 2.1 mg/dL (1.6-2.6); Osmolality,Calculated 280 (275-295); Potassium 4.9 mMol/L (3.4-5.1); Sodium 137 mMol/L (136-145); Total Protein 7.4 gm/dL (5.7-8.2); Troponin I < 0.020 ng/mL (0.0-0.045); eGFR > 60 See Note
[2024-06-04 14:58] LABS: Iron 23 mcg/dL (50-170); Percent Iron Saturation 8 % (20-55); Total Iron Binding Capacity 280 mcg/dL (250-425); Unsaturated Iron Binding 257 (225-295)
--- NOTE | 2024-06-04 15:33 | PC.CC ---
Patient is a 74 year-old female who presents to the hospital for SOB. Nichole DRAKE made [id number] contact with patient. ASW introduced self, role, and reason for visit. Patient appeared alert and oriented to self, location, and situation. Patient was pleasant and engaged in initial assessment. Patient reports she lives alone in her own apartment. Her 8 years ago. Patient reports her medical decision maker in the event she is unable to make her own decisions is her daughter, Gypsy Zayas . At home patient ambulates independently and completes own ADLs. Patient uses oxygen while at home but is unsure how many liters. Patient receives primary care with Ivonne Briseno and uses [facility] for prescription medication. Upon discharge patient plans to return home. security services specialist to follow up with any discharge needs.
--- NOTE | 2024-06-04 16:31 | PC.NURSE ---
pt has one IV for blood transfusion, refusing to let rn place another line, states she has been poked enough
--- NOTE | 2024-06-04 18:35 | PC.NURSE ---
pt up to bedside commode between blood transfusions, spo2 dropped to 88, now back in bed 98% on tele
--- NOTE | 2024-06-04 19:11 | PC.NURSE ---
2nd UPRBC infusing well without adverse reaction noted.
--- NOTE | 2024-06-04 20:15 | PC.NURSE ---
Pt sleeping, difficult to aroused. When awaken, pt only said what, but dosn't answer any other questions.
--- NOTE | 2024-06-04 20:15 | PC.NURSE ---
Resident in to see pt. Pt sleeping, difficult to aroused. Awaken, and said what but doesn't answer to any other questions.
--- NOTE | 2024-06-04 22:10 | PC.NURSE ---
Pt ready for discharge home. Pt c/o can't go home, still SOB, and feels like IU've fluid in my lungs. Dr. Valle in room. Will give lasix per .
--- NOTE | 2024-06-04 22:14 | PD.EDADDENDU ---
Emergency Room Addendum Addendum Narrative: 1800: Care assumed from Dr. Franco. Past medical, surgical, social and family history reviewed. Vitals and home medications reviewed. Results and treatment plan discussed. I will assume the care of the patient at this time and will follow the patient, pending blood transfusions and final disposition. Please refer to the emergency department record for history and examination from initial visit. The following addendum documentation note is intended to reflect any pending information, findings, or radiology results not included in the patient?s initial chart. 2200: 74-year-old female with a history of CHF, hypertension, type 2 diabetes, hyperlipidemia, and iron deficiency anemia presents with one month of progressive dyspnea on exertion, generalized weakness, bilateral leg swelling, and a dry cough. She denies chest pain, orthopnea, PND, fever, chills, congestion, or sputum production. Radiology Data: Chest X-ray at 1430 demonstrates findings consistent with mild heart failure, with small right and moderate left pleural effusions. Repeat imaging at 2235 shows progression to [id number] heart failure, indicating worsening pulmonary congestion. 2250: Case discussed with Dr. Yost, hospitalist, who agrees to admit the patient for further evaluation and management. Critical Care Time Critical Care Time Critical Care Time: Yes Total Critical Care Time (min.): 31 Attestation: The high probability of sudden, clinically significant deterioration in the patient?s condition required the highest level of my preparedness to intervene urgently. ? The services I provided to this patient were to treat and/or prevent clinically significant deterioration. Services included the following: chart data review, reviewing nursing notes and/or old charts, documentation time, home energy consultant collaboration regarding findings and treatment options, medication orders and management, direct patient care, vital sign assessments and ordering, interpreting and reviewing diagnostic studies and lab tests. ? Aggregate critical care time includes only time during which I was engaged in work directly related to the patient?s care, as described above, whether at bedside or elsewhere in the Emergency Department. It did not include time spent performing other reported procedures or the services of residents, students, nurses or physician assistants. MD Attestation MD Attestation Scribe Attestation: I, Raghavendra Rico, am scribing for and in the presence of Dr. Valle. Provider Notation: Although this document has been carefully reviewed, there may still be some phonetic and other typographical errors. These errors are purely grammatical due to imperfections in the software program and should not be construed in any way to compromise the substance of the patient's medical care during this visit.
--- NOTE | 2024-06-04 22:19 | XR_ITS ---
Examination: AP chest single view TECHNIQUE: AP portable upright chest single view Examination date time: June 04, 2024 1028 hours Comparison June 04, 2024 INDICATIONS: Shortness of breath today FINDINGS: [id number] heart failure Mild enlargement cardiac contour Prominent vascular congestion with perihilar and basilar edema The osseous structures are intact IMPRESSION: [id number] heart failure
[2024-06-04] MEDS: FUROSEMIDE INJ 10 MG/ML 4ML VIAL 40 MG IVP (22:25)
--- NOTE | 2024-06-04 22:46 | PC.NURSE ---
Dr. Yost in to see pt.
--- NOTE | 2024-06-04 23:37 | ESHP_ITS ---
Documentation for date of: 06/04/24 HPI History of Present Illness History of present illness: Using certified casino accountant, H&P was completed. Patient is a 74-year-old female, who came into the ER complaining of shortness of breath, was found to have iron deficiency anemia, received 2 PRBC transfusions and IV Lasix 40 mg, complaining of worsening shortness of breath after PRBC transfusion, concern for volume overload, ER contacted hospitalist team to admit. Patient reported that she started becoming short of breath on 3rd of this month was admitted to the hospital prior for community-acquired pneumonia and acute hypoxic respiratory failure, was discharged home but no medications were sent. The patient lives alone at her apartment but has a daughter in town, who visits her. Patient reported since discharge from prior hospitalization she has never felt any better, patient reported feeling short of breath even at rest, has home oxygen which helps only a little bit, is short of breath on laying down and also on exertion. Denied having chest pain or palpitations, no chest heaviness or discomfort. Denied nausea vomiting and diarrhea. Denied fever or excessive phlegm or cough. ER course, patient came to the ER to receive blood transfusions, but became more short of breath, was given IV Lasix x 1, 2 PRBC was transfused. Chest x-ray was done which showed mild to moderate heart failure and pulmonary vascular congestion with perihilar and basilar edema. EKG shows normal sinus rhythm with poor progression of R wave. Left axis deviation. chest x-ray shows Prominent vascular congestion with perihilar and basilar edema. Labs pertinent for anemia, hemoglobin 7.3, no leukocytosis or left shift, CHEM panel shows normal electrolytes, renal function, and liver function, BNP elevated at 341, procalcitonin pending. Urinalysis remarkable for 2+ protein. Past medical history: Type 2 diabetes mellitus, hypertension, chronic iron deficiency anemia, hyperlipidemia. History of recurrent pleural effusions, recurrent chest infections. 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 Review of Systems Review of Systems Systems Reviewed: All systems reviewed, normal except as documented Past Medical History Past Medical History NEUROLOGIC: Negative Neurological Disorders CARDIAC: Positive Atherosclerotic Heart Disease and Hypertension; Negative Cardiac Disorders or Congestive Heart Failure RESPIRATORY: Positive Asthma; Negative Chronic Obstructive Pulmonary Disease (COPD) GASTROINTESTINAL: Negative Gastrointestinal Disorders or Colorectal Cancer GENITOURINARY: Negative Genitourinary Disorders or Renal Disease MUSCULOSKELETAL: Negative Musculoskeletal Disorders ENT: Positive Cataracts ENDOCRINE: Positive Diabetes Mellitus Type 2 (15 years); Negative Diabetes Mellitus Type 1 HEMATOLOGIC: Positive Anemia; Negative Blood Disorders or Sickle Cell Disease OTHER HISTORY: Negative Hospitalization, Autoimmune Disease, Down Syndrome, Developmental Delay, Shingles, Falls, Blood Transfusion Reaction, Chicken Pox, Cancer, Cervical Cancer, Colorectal Cancer or Lung Cancer Social History SMOKING STATUS: Never smoker SECOND HAND EXPOSURE: No SUBSTANCE USE: does not use Exam Vital Signs Temp Pulse Resp BP Pulse Ox O2 Del Method O2 Flow Rate 98.2 F 94 22 H 162/75 H 92 L Nasal Cannula 3 06/04/24 22:00 06/04/24 22:25 06/04/24 22:00 06/04/24 22:25 06/04/24 22:00 06/04/24 22:00 06/04/24 22:00 Narrative Exam General: AOx3, cooperative on 3 L NC O2 Skin: Intact, no cyanosis or edema noted. HEENT: Atraumatic/normocephalic, [place], neck supple Heart: RRR, S1 and S2 without clicks or murmurs Lungs: Coarse Crackles bilaterally , more on the left side, mid and basal zones. Abdomen: Soft, nontender. Bowel sounds present . Vascular: Peripheral pulses palpable Neuro: No focal neurological deficits noted. Results: Labs 06/04/24 13:29 06/04/24 13:29 Labs: Short CBC 06/04/24 Range/Units 13: WBC 6.7 (3.6-11.0) Thou/mm3 Hgb 7.3 L (12.0-16.0) g/dL Hct 22.6 L (36.0-46.0) % Plt Count 256 D (140-440) Thou/mm3 BMP 06/04/24 13: Sodium 137 Potassium 4.9 Chloride 107 Carbon Dioxide 22.4 BUN 19 Creatinine 0.9 Glucose 169 H Calcium 9.5 Cardiac Enzymes 06/04/24 Range/Units 13: Troponin I < 0.020 (0.0-0.045) ng/mL Liver Function 06/04/24 Range/Units 13:29 Total Bilirubin 0.8 (0.3-1.2) mg/dL AST 12 (0-34) U/L ALT 24 (10-49) U/L Alkaline Phosphatase 66 (46-116) U/L Albumin 4.0 (3.4-4.8) gm/dL Urine 06/04/24 Range/Units 13:31 Urine Color Yellow (Lt Yel-Yel) Urine Clarity Clear (Clear/Hazy) Urine pH 6.5 (5.0-7.0) Ur Specific [place] 1.015 (1.001-1.035) Urine Protein 2+ A (Neg - Trace) Urine Glucose (UA) Negative (Negative) Quality Measures Quality Measures none Advance care planning discussed with:: patient Medications Home Medications and Allergies Home Medications ?Medication ?Instructions ?Recorded ?Confirmed ?Type empagliflozin 25 mg tablet 25 mg PO QDAY 04/30/2208/31 History (Jardiance) Allergies Allergy/AdvReac Type Severity Reaction Status Date / Time No Known Allergies Allergy Verified 05/09/24 10:52 Visit Medications Discontinued Medications Furosemide (Furosemide Inj 10 Mg/Ml 4ml Vial) 40 mg IVP X1 ONE Stop: 06/04/24 22:17 Last Admin: 06/04/24 22:25 Dose: 40 mg Assessment & Plan Plan # Acute hypoxic respiratory failure # Atypical pneumonia versus CHF # Rule out cocci Patient has been complaining of chronic symptoms shortness of breath, has multiple prior admissions for pneumonia, respiratory distress, even being on high flow nasal cannula oxygen during prior hospitalization, and multiple pleural effusions requiring drainage. Extensive workup was done, cocci testing was negative on prior visits, sputum cultures and blood cultures negative, was treated as community-acquired pneumonia during previous hospitalizations, CT chest done On 05/11/2024 showed 18 mm right tracheobronchial lymph node, which is a new lesion compared to the study in 05/01 extensive bilateral lung opacity consistent with pneumonia, heart failure, nonspecific mediastinal lymphadenopathy, normal spleen. Patient did feel more short of breath following blood transfusions, concern for volume overload. ? Considered hospital-acquired pneumonia, but patient history is more chronic, no acute change in clinical condition, will order blood and sputum cultures, will defer aggressive antibiotic regimen for now. ? IV Zosyn started 05/26/2024. ? Follow coccidiomycosis serology, serum IgE levels, beta D glucan. ? Follow blood and sputum cultures. ? Ordered pulmonary function tests to check for lung volumes and DLCO, persistent respiratory distress concerning for pulmonary hypertension. # CHF rule out # Pulmonary hypertension rule out BNP elevated, positive history of orthopnea and dyspnea on exertion, prior echo in 2022 showed EF 55% but there was concern for pulmonary hypertension, possible HFpEF will get echocardiogram as prior study in 2022 and symptoms progressing. EKG also concerning for poor R wave progression, patient denies chest pain, negative troponins. ? IV Lasix 40 mg daily. ? Follow echocardiogram. # Mediastinal lymphadenopathy CT chest done On 05/11/2024 showed 18 mm right tracheobronchial lymph node, which is a new lesion compared to the study in 05/01 extensive bilateral lung opacity consistent with pneumonia, heart failure, nonspecific mediastinal lymphadenopathy, normal spleen. Will defer biopsy to primary team, can follow with repeat chest imaging on outpatient basis in a few months or primary team if to consult oncology. # Anemia Diagnosis of iron deficiency anemia, chronic persistent anemia 2 PRBCs transfused. Impacting of new onset lymphadenopathy, may need workup to rule out myelodysplasia versus hematological malignancy. ? Consider heme-onc referral for workup of anemia on outpatient basis. Plan of care discussed with attending Dr. Priyank Whitmore PGY2 Attending Provider Attestation/Addendum Pt was evaluated and plan formulated together with the housestaff team. I have reviewed the residents note above and agree with most of its content. Please refer to the residents note for additional details.
[2024-06-05] VITALS (15 sets, daily range): BP systolic 131–165; BP diastolic 60–83; PULSE 73–89; RESP 17–29; TEMP 36.5–37.1; O2SAT 93–98; BMI 31.8
[2024-06-05 00:06] LABS: B-Type Natriuretic Peptide 341 pg/mL (0-100)
[2024-06-05 00:21] LABS: Procalcitonin 0.06 ng/ml (0.0-0.49)
[2024-06-05 00:22] LABS: Base Excess, Venous -3 (-3-3); O2 Saturation, Venous 85 % (96-97); PCO2, Venous 35 mmHg (36-56); PO2, Venous 47 mmHg (15-58)
[2024-06-05] MEDS: PIPER/TAZO 3.375 GM PREMIX 3.375 GM/50 ML BAG IV ×4 (00:27→21:14)
[2024-06-05 00:37] LABS: Sed Rate (ESR) 77 mm/hr (0-30)
[2024-06-05 01:51] LABS: Collection Type, Urine Voided
--- NOTE | 2024-06-05 01:57 | PC.NURSE ---
Pt requesting for sleeping pill, Dr. Yost stated ok to give Lesli becker.
[2024-06-05 02:00] LABS: Bilirubin,Urine Negative (Negative); Blood,Urine Negative (Negative); Clarity,Urine Clear (Clear/Hazy); Color,Urine Lt-Yellow (Lt Yel-Yel); Glucose, Urine Negative (Negative); Ketones,Urine Negative (Negative); Leukocyte Esterase,Urine Negative (Negative); Nitrite,Urine Negative (Negative); PH,Urine 6.5 (5.0-7.0); Protein,Urine 2+ (Neg - Trace); RBC,Urine 1 /hpf (0-3); Specific Gravity,Urine 1.011 (1.001-1.035); Squamous Epithelial Cell,Urine < 1 /hpf (0-5); Urobilinogen,Urine Negative mg/dL (0.0-1.0); WBC,Urine < 1 /hpf (0-5)
[2024-06-05] MEDS: ACETAMINOPHEN 325 MG TABLET 650 MG PO ×2 (02:02→21:37)
[2024-06-05] MEDS: ZOLPIDEM 5 MG TABLET PO (02:03)
[2024-06-05 06:08] LABS: Basophils # (Auto) 0.1 Thou/mm3 (0.0-0.2); Basophils % (Auto) 1 % (0-2.5); Eosinophils # (Auto) 0.1 Thou/mm3 (0.0-0.5); Eosinophils % (Auto) 1 % (0-10); Hematocrit 28.7 % (36.0-46.0); Hemoglobin 9.7 g/dL (12.0-16.0); Immature Granulocytes % (Auto) 1 % (0-0); Immature Granulocytes Auto 0.04 Thou/mm3 (0.00-0.00); Lymphocytes # (Auto) 0.9 Thou/mm3 (1.0-4.8); Lymphocytes % (Auto) 11 % (10-50); Mean Corpuscular HGB Conc 33.8 g/dl (31.0-37.0); Mean Corpuscular Hemoglobin 28.2 pg (25.0-35.0); Mean Corpuscular Volume 83 fL (80-100); Monocytes # (Auto) 0.8 Thou/mm3 (0.0-0.8); Monocytes % (Auto) 9 % (0-12); Neutrophils # (Auto) 6.2 Thou/mm3 (1.8-7.7); Neutrophils % (Auto) 77 % (37-80); Nucleated Red Blood Cell % 0 /100 WBC (0); Platelet Count 256 Thou/mm3 (140-440); Red Blood Count 3.44 Miln/mm3 (4.00-5.20); White Blood Count 8.1 Thou/mm3 (3.6-11.0)
[2024-06-05 06:09] LABS: Prothrombin Time 11.1 Seconds (9.0-12.2)
[2024-06-05 06:34] LABS: Alanine Aminotransferase 20 U/L (10-49); Albumin/Globulin Ratio 1.1 (1.2-2.2); Alkaline Phosphatase 69 U/L (46-116); Anion Gap 8 (7-16); Aspartate Amino Transferase 12 U/L (0-34); BUN/Creatinine Ratio 18 Ratio (12-20); Bilirubin,Total 1.1 mg/dL (0.3-1.2); Blood Urea Nitrogen 18 mg/dL (9-23); Calcium 9.5 mg/dL (8.3-10.6); Calcium (Corrected) 9.5 mg/dL (8.5-10.1); Carbon Dioxide 23.2 mMol/L (20.0-31.0); Chloride 107 mMol/L (98-107); Cholesterol 203 mg/dL (132-200); Estimated Creatinine Clearance 46.2 mL/min (>60); Globulin 3.5 gm/dL (2.3-3.5); Glucose 177 mg/dL (74-106); HDL Cholesterol 41 mg/dL (40-60); LDL Cholesterol,Calculated 145 mg/dL (0-130); Magnesium 1.7 mg/dL (1.6-2.6); Osmolality,Calculated 281 (275-295); Phosphorous 4.2 mg/dL (2.4-5.1); Potassium 4.2 mMol/L (3.4-5.1); Sodium 138 mMol/L (136-145); Thyroid Stimulating Hormone 8.71 uIU/mL (0.55-4.78); Total Protein 7.5 gm/dL (5.7-8.2); Triglycerides 84 mg/dL (30-150); eGFR 59 See Note
[2024-06-05] MEDS: LOSARTAN POTASSIUM 25 MG TABLET 50 MG PO (08:30)
[2024-06-05] MEDS: FUROSEMIDE INJ 10 MG/ML 4ML VIAL 40 MG IVP (08:31)
[2024-06-05] MEDS: INSULIN GLARGINE (Lantus) 5 UNIT/0.05 ML (PER 5 UNITS) 10 UNIT SC (08:31)
--- NOTE | 2024-06-05 10:52 | ESPR_ITS ---
Documentation for date of: 06/05/24 Subjective Subjective Interval history: Usha Cooper is a 74-y/o female with PMHx of HTN, T2DM, HLD, and iron deficiency anemia who presents with SOB. She was already in the ED for blood transfusion and received 2 PRBC when she reported feeling worsening of her shortness of breath. She was given one-time dose of Lasix without significant improvement and ER contacted hospitalist team for admission. Of note, patient started becoming SOB on 3rd of this month and was recently admitted to the hospital prior for CAP and ARHF, was discharged home but no medications were sent. Since discharge from prior hospitalization did not feel better, endorses SOB even at rest, and has home oxygen which helps only a little bit. 06/05: No acute overnight events reported. Seen and examined at bedside. Upon further history, patient endorses orthopnea but no PND or bilateral lower extremity swelling. No history of smoking. Saturating at 95 to 96% on 3 L nasal cannula. Exam Vital Signs Temp Pulse Resp BP Pulse Ox O2 Del Method O2 Flow Rate 98.7 F 80 24 H 141/60 H 96 Nasal Cannula 3 06/05/24 08:00 06/05/24 08:31 06/05/24 08:05 06/05/24 08:31 06/05/24 08:05 06/05/24 08:00 06/05/24 08:05 Narrative Exam General: AOx3, no acute distress, able to speak full sentences HEENT: NC/AT, mucous membranes moist, bilateral sclera anicteric Cardiovascular: regular rate and rhythm, S1/S2 present, no murmurs appreciated Pulmonary: fine crackles heard at bases bilaterally, no wheezing noted Abdominal: soft, non-tender, non-distended, no rebound/guarding, normal bowel sounds present Musculoskeletal: normal ROM, no peripheral edema Skin: warm and dry, intact, no rashes Neuro: CN II-XII intact, no focal deficits Objective Labs 06/06/24 04:45 06/06/24 04:45 Labs: Laboratory Results - last 24 hr 06/04/24 06/04/24 06/04/24 13:20 13:29 13:31 WBC 6.7 RBC 2.56 L Hgb 7.3 L Hct 22.6 L MCV 88 MCH 28.5 MCHC 32.3 RDW Std Deviation 54.8 H Plt Count 256 D Neut % (Auto) 72 Lymph % (Auto) 16 [place] % (Auto) 9 Eos % (Auto) 2 Baso % (Auto) 1 Neut # (Auto) 4.8 Lymph # (Auto) 1.1 [place] # (Auto) 0.6 Eos # (Auto) 0.1 Baso # (Auto) 0.1 Immature Gran # (Auto) 0.03 H Absolute Nucleated RBC 0.00 Immature Gran % 0 Nucleated RBC % 0 ESR PT 10.8 INR 1.0 APTT 25.6 VBG pH VBG pCO2 VBG pO2 VBG O2 Sat (Puneet) VBG Base Excess Sodium 137 Potassium 4.9 Chloride 107 Carbon Dioxide 22.4 Anion Gap 8 BUN 19 Creatinine 0.9 Estim Creat Clear Calc 45.1 L eGFR > 60 BUN/Creatinine Ratio 21 H Glucose 169 H Calculated Osmolality 280 Calcium 9.5 Corrected Calcium 9.5 Phosphorus Magnesium 2.1 Iron 23 L TIBC 280 Iron Saturation 8 L Unsat Iron Binding 257 Total Bilirubin 0.8 AST 12 ALT 24 Alkaline Phosphatase 66 Lactate Dehydrogenase 200 Troponin I < 0.020 B-Natriuretic Peptide 334 H Total Protein 7.4 Albumin 4.0 Globulin 3.4 Albumin/Globulin Ratio 1.2 Triglycerides Cholesterol LDL Cholesterol, Calc HDL Cholesterol Cholesterol/HDL Ratio Procalcitonin TSH Ur Collection Type Clean Catch Urine Color Yellow Urine Clarity Clear Urine pH 6.5 Ur Specific [place] 1.015 Urine Protein 2+ A Urine Glucose (UA) Negative Urine Ketones Negative Urine Blood Negative Urine Nitrite Negative Urine Bilirubin Negative Urine Urobilinogen (Auto) Negative Ur Leukocyte Esterase Negative Urine RBC 3 Urine WBC 1 Ur Squamous Epith Cells < 1 Urine Bacteria None Urine Opiates Screen Negative Urine Fentanyl Screen Negative Ur Barbiturates Screen Negative U Amphetamin/Meth Scrn Negative U Benzodiazepines Scrn Negative U Cocaine Metab Screen Negative U Marijuana (THC) Screen Negative Blood Type O Positive Antibody Screen NEGATIVE Crossmatch See Detail Blood Bank Wristband ID Yes 06/04/24 06/05/24 06/05/24 23:30 01:44 04:55 WBC 8.1 RBC 3.44 L Hgb 9.7 L D Hct 28.7 L MCV 83 MCH 28.2 MCHC 33.8 RDW Std Deviation 48.0 H Plt Count 256 Neut % (Auto) 77 Lymph % (Auto) 11 [place] % (Auto) 9 Eos % (Auto) 1 Baso % (Auto) 1 Neut # (Auto) 6.2 Lymph # (Auto) 0.9 L [place] # (Auto) 0.8 Eos # (Auto) 0.1 Baso # (Auto) 0.1 Immature Gran # (Auto) 0.04 H Absolute Nucleated RBC 0.00 Immature Gran % 1 H Nucleated RBC % 0 ESR 77 H PT 11.1 INR 1.0 APTT VBG pH 7.40 VBG pCO2 35 L VBG pO2 47 VBG O2 Sat (Puneet) 85 L VBG Base Excess -3 Sodium 138 Potassium 4.2 D Chloride 107 Carbon Dioxide 23.2 Anion Gap 8 BUN 18 Creatinine 1.0 Estim Creat Clear Calc 46.2 L eGFR 59 L BUN/Creatinine Ratio 18 Glucose 177 H Calculated Osmolality 281 Calcium 9.5 Corrected Calcium 9.5 Phosphorus 4.2 Magnesium 1.7 Iron TIBC Iron Saturation Unsat Iron Binding Total Bilirubin 1.1 AST 12 ALT 20 Alkaline Phosphatase 69 Lactate Dehydrogenase Troponin I B-Natriuretic Peptide 341 H Total Protein 7.5 Albumin 4.0 Globulin 3.5 Albumin/Globulin Ratio 1.1 L Triglycerides 84 Cholesterol 203 H LDL Cholesterol, Calc 145 H HDL Cholesterol 41 Cholesterol/HDL Ratio 5.0 Procalcitonin 0.06 TSH 8.71 H Ur Collection Type Voided Urine Color Lt-Yellow Urine Clarity Clear Urine pH 6.5 Ur Specific [place] 1.011 Urine Protein 2+ A Urine Glucose (UA) Negative Urine Ketones Negative Urine Blood Negative Urine Nitrite Negative Urine Bilirubin Negative Urine Urobilinogen (Auto) Negative Ur Leukocyte Esterase Negative Urine RBC 1 Urine WBC < 1 Ur Squamous Epith Cells < 1 Urine Bacteria None Urine Opiates Screen Urine Fentanyl Screen Ur Barbiturates Screen U Amphetamin/Meth Scrn U Benzodiazepines Scrn U Cocaine Metab Screen U Marijuana (THC) Screen Blood Type Antibody Screen Crossmatch Blood Bank Wristband ID ABG Interpretation ABG results: 06/04/24 23:30 VBG pH 7.40 VBG pCO2 35 L VBG pO2 47 VBG Base Excess -3 Quality Measures Quality Measures none Advance care planning discussed with:: patient Assessment & Plan Assessment Current Active Medications: Generic Name Dose Route Start Last Admin Trade Name Freq PRN Reason Stop Dose Admin Acetaminophen 650 mg 06/04/24 23:56 06/05/24 02:02 Acetaminophen 325 Mg Tablet PO 07/04/24 23:55 650 mg Q6H PRN Administration PAIN OR FEVER > 101 Dextrose 25 ml 06/05/24 00:01 Dextrose 50%-Water Inj 50 Ml Syringe IV 07/05/24 00:00 Q15MIN PRN BG 50-70 responsive npo pt Dextrose 50 ml 06/05/24 00:01 Dextrose 50%-Water Inj 50 Ml Syringe IV 07/05/24 00:00 Q15MIN PRN BG <50 OR BG <70 & pt unresponsive Furosemide 40 mg 06/05/24 09:00 06/05/24 08:31 Furosemide Inj 10 Mg/Ml 4ml Vial IVP 07/05/24 08:59 40 mg QDAY SAVANNA Administration Glucagon 1 mg 06/05/24 00:01 Glucagon Inj 1 Mg Vial IM Q15MIN PRN BG <70, and no IV access Hydralazine HCl 10 mg 06/05/24 00:07 Hydralazine Inj 20 Mg/Ml Vial IV 07/05/24 00:06 Q6HR PRN SBP > 160 Piperacillin/Tazobactam/Dextrose 3.375 gm in 50 mls @ 12.5 mls/hr 06/05/24 06:00 06/05/24 05:19 Zosyn IV 06/12/24 00:05 12.5 mls/hr Q8HR SAVANNA Administration Insulin Glargine 10 unit 06/05/24 09:00 06/05/24 08:31 Insulin Glargine (Lantus) 5 Unit/0.05 Ml (Per 5 Units) SC 07/05/24 08:59 10 unit QDAY SAVANNA Administration Insulin Human Lispro 0 unit 06/05/24 07:30 06/05/24 07:24 Insulin Lispro (Admelog) 1 Unit/0.01 Ml Unit SC 07/05/24 07:29 Not Given AC SAVANNA Protocol Losartan Potassium 50 mg 06/05/24 09:00 06/05/24 08:30 Losartan Potassium 25 Mg Tablet PO 07/05/24 08:59 50 mg QDAY SAVANNA Administration Ondansetron HCl 4 mg 06/04/24 23:56 Ondansetron Inj 2 Mg/Ml Inj 2 Ml IV 07/04/24 23:55 Q6H PRN NAUSEA OR VOMITING Protocol Sennosides 2 tab 06/04/24 23:56 Senna Tablet PO 07/04/24 23:55 BID PRN CONSTIPATION Protocol Zolpidem Tartrate 5 mg 06/04/24 21:00 06/05/24 08:35 Zolpidem 5 Mg Tablet PO 07/04/24 20:59 Not Given HS [facility] Usha Cooper is a 74-y/o female with PMHx of HTN, T2DM, HLD, and iron deficiency anemia who presents with SOB. She was already in the ED for blood transfusion and received 2 PRBC when she reported feeling worsening of her shortness of breath. She was given one-time dose of Lasix without significant improvement and ER contacted hospitalist team for admission. Of note, patient started becoming SOB on 3rd of this month and was recently admitted to the hospital prior for CAP and ARHF, was discharged home but no medications were sent. Since discharge from prior hospitalization did not feel better, endorses SOB even at rest, and has home oxygen which helps only a little bit. #Acute vs acute on chronic hypoxic respiratory failure #CHF vs pulmonary hypertension vs atypical pneumonia Worsening SOB over the course of the month, to point where patient feels SOB at rest. Denied nausea, vomiting, diarrhea, any fevers or excessive phlegm or cough. WBC normal, no fevers, procal negative. CT chest on 05/11/2024 showed 18 mm right tracheobronchial lymph node, which is a new lesion compared to study on 05/01. BNP 300s, endorses orthopnea but no PND. Echo in 2022 showed normal EF but moderate pulmonary HTN (RVSP 50 mmHg, RAP 10 mmHg). ? Zosyn (05/26-) ? Follow-up cocci serologies, serum IgE, beta-D glucan ? Follow-up sputum cultures ? PFTs ordered ? Follow-up echo ? Lasix 40 mg IV daily #Mediastinal lymphadenopathy CT chest on 05/11/2024: 18 mm right tracheobronchial lymph node, which is a new lesion compared to study in 05/01. ? Oncology consulted, appreciate recommendations ? Pending recs if biopsy should be pursued in-house or worked-up outpatient #Chronic normocytic anemia #Iron deficiency anemia Diagnosis of iron deficiency anemia, chronic persistent anemia 2 PRBCs transfused. Iron 23, TIBC 280, iron saturation 8%. Reticulocyte 3.4%, indicating intact bone marrow. ? Consider heme-onc referral for workup of anemia on outpatient basis ? Monitor CBC and transfuse if hgb < 7.0 ? Follow-up reticulocyte count #Type 2 diabetes mellitus ? SSI ? Hypoglycemic protocol in place #History of hypertension ? Blood pressure stable, pending [facility] rec #Hyperlipidemia ? Pending med rec Hospital management: Disposition: pending echo and oncology recommendations Fluids: not indicated Diet: cardiac Lines: PIV DVT prophylaxis: SCDs GI prophylaxis: not indicated CODE STATUS: full code ----- Plan discussed with attending physician Dr. Mahesh Ramos MD PGY-1 Internal Medicine Attending Provider Attestation/Addendum I reviewed labs, imaging, EKG, home medications and prior available records. Face to face evaluation was performed by me. I have personally examined the patient and discussed assessment and plan with the IM team. I reviewed the resident note and agree with the plan with exceptions as below. Acute hypoxic respiratory failure Healthcare associated pneumonia Chronic HFpEF Acute on chronic anemia Mediastinal lymphadenopathy Status post 2 PRBC transfusion. Monitor H&H posttransfusion Continue IV Zosyn Follow-up cultures Continue IV Lasix Wean off oxygen as tolerated Follow-up echocardiogram Consulted oncology for further recommendations regarding the lymphadenopathy and significant anemia
[2024-06-05 11:04] LABS: Free T4 (Free Thyroxine) 1.19 ng/dL (0.89-1.76)
[2024-06-05] MEDS: INSULIN LISPRO (AdmeLOG) 1 UNIT/0.01 ML UNIT SC ×2 (11:22→16:38)
[2024-06-05 13:16] LABS: Cocci Serology, IgM Negative (Negative)
[2024-06-05 13:21] LABS: Immature Reticulocyte Fraction 32.7 % (3.0-15.9); Reticulocyte % (Auto) 3.4 % (0.5-1.5); Reticulocyte Absolute Auto 114.9 Biln/L (25.0-75.0); Reticulocyte Hgb Content 30.7 pg (28.0-35.0)
[2024-06-06] VITALS (11 sets, daily range): BP systolic 121–176; BP diastolic 60–88; PULSE 64–108; RESP 16–24; TEMP 36.1–36.9; O2SAT 95–99; BMI 31.8
[2024-06-06] MEDS: PIPER/TAZO 3.375 GM PREMIX 3.375 GM/50 ML BAG IV ×2 (05:31→13:28)
[2024-06-06 06:09] LABS: Basophils # (Auto) 0.1 Thou/mm3 (0.0-0.2); Basophils % (Auto) 2 % (0-2.5); Eosinophils # (Auto) 0.4 Thou/mm3 (0.0-0.5); Eosinophils % (Auto) 6 % (0-10); Hematocrit 31.5 % (36.0-46.0); Hemoglobin 10.5 g/dL (12.0-16.0); Immature Granulocytes % (Auto) 0 % (0-0); Immature Granulocytes Auto 0.01 Thou/mm3 (0.00-0.00); Lymphocytes # (Auto) 1.3 Thou/mm3 (1.0-4.8); Lymphocytes % (Auto) 20 % (10-50); Mean Corpuscular HGB Conc 33.3 g/dl (31.0-37.0); Mean Corpuscular Hemoglobin 28.1 pg (25.0-35.0); Mean Corpuscular Volume 84 fL (80-100); Monocytes % (Auto) 16 % (0-12); Neutrophils # (Auto) 3.6 Thou/mm3 (1.8-7.7); Neutrophils % (Auto) 56 % (37-80); Nucleated Red Blood Cell % 0 /100 WBC (0); Platelet Count 267 Thou/mm3 (140-440); RDW Standard Deviation 47.7 fL (36.4-46.3); Red Blood Count 3.74 Miln/mm3 (4.00-5.20); White Blood Count 6.3 Thou/mm3 (3.6-11.0)
[2024-06-06 06:27] LABS: Alanine Aminotransferase 16 U/L (10-49); Albumin, Serum 3.8 gm/dL (3.4-4.8); Albumin/Globulin Ratio 1.1 (1.2-2.2); Alkaline Phosphatase 62 U/L (46-116); Anion Gap 8 (7-16); Aspartate Amino Transferase 12 U/L (0-34); BUN/Creatinine Ratio 21 Ratio (12-20); Blood Urea Nitrogen 17 mg/dL (9-23); Calcium 10.1 mg/dL (8.3-10.6); Calcium (Corrected) 10.3 mg/dL (8.5-10.1); Carbon Dioxide 26.1 mMol/L (20.0-31.0); Chloride 104 mMol/L (98-107); Creatinine (Component) 0.8 mg/dL (0.6-1.3); Estimated Creatinine Clearance 57.8 mL/min (>60); Globulin 3.5 gm/dL (2.3-3.5); Glucose 143 mg/dL (74-106); Magnesium 1.9 mg/dL (1.6-2.6); Osmolality,Calculated 279 (275-295); Phosphorous 3.3 mg/dL (2.4-5.1); Potassium 4.1 mMol/L (3.4-5.1); Sodium 138 mMol/L (136-145); Total Protein 7.3 gm/dL (5.7-8.2); eGFR > 60 See Note
--- NOTE | 2024-06-06 06:32 | ESCONSULT_ITS ---
HPI Data of Consult Requesting Physician: Jamari Yost MD Primary Care Provider: Ivonne Briseno NP Consult Narrative Reason for consult: Mediastinal adenopathy History of present illness: 74-year-old Swiss-speaking non-smoking female came in with shortness of breath with prior admissions for pneumonia and respiratory distress. CT on 05/11/2024 revealed extensive bilateral pneumonia and nonspecific mediastinal adenopathy including 18 mm right tracheobronchial lymph node not previously seen. Currently receiving supportive care for respiratory distress pneumonia diabetes hypertension. Patient now referred for oncological consultation. cc:: cc: Jamari Yost MD Past Medical History Social History SOCIAL: Denies smoking drinking Past Medical History Comments PMH COMMENT: Atherosclerotic heart disease hypertension type 2 diabetes mellitus Meds Home Medications and Allergies Home Medications ?Medication ?Instructions ?Recorded ?Confirmed ?Type empagliflozin 25 mg tablet 25 mg PO QDAY 04/30/2208/31 History (Jardiance) Allergies Allergy/AdvReac Type Severity Reaction Status Date / Time No Known Allergies Allergy Verified 05/09/24 10:52 Exam Vital Signs Temp Pulse Resp BP Pulse Ox O2 Del Method O2 Flow Rate 97.0 F 72 16 166/88 H 99 Nasal Cannula 3 06/06/24 04:00 06/06/24 04:00 06/06/24 04:00 06/06/24 04:00 06/06/24 04:00 06/06/24 04:00 06/06/24 00:16 Narrative Exam Appearing comfortable answering questions appropriately with field human resources manager Results Labs 06/06/24 04:45 06/06/24 04:45 Labs: Short CBC 06/06/24 Range/Units 04:45 WBC 6.3 (3.6-11.0) Thou/mm3 Hgb 10.5 L (12.0-16.0) g/dL Hct 31.5 L (36.0-46.0) % Plt Count 267 (140-440) Thou/mm3 BMP 06/05/24 06/06/24 04:55 04:45 Sodium 138 138 Potassium 4.2 D 4.1 Chloride 107 104 Carbon Dioxide 23.2 26.1 BUN 18 17 Creatinine 1.0 0.8 Glucose 177 H 143 H Calcium 9.5 10.1 Liver Function 06/05/24 06/06/24 Range/Units 04:55 04:45 Total Bilirubin 1.1 1.0 (0.3-1.2) mg/dL AST 12 12 (0-34) U/L ALT 20 16 (10-49) U/L Alkaline Phosphatase 69 62 (46-116) U/L Albumin 4.0 3.8 (3.4-4.8) gm/dL ABG Interpretation ABG results: 06/04/24 23:30 VBG pH 7.40 VBG pCO2 35 L VBG pO2 47 VBG Base Excess -3 Assessment and Plan Additional Assessment & Plan Additional Plan: 1. Admitted with respiratory distress CT showing extensive bilateral pneumonia and 18 mm right tracheobronchial lymph node which appears new. 2. Receiving work up and supportive treatments for this and various comorbidities and appears improving. 3. Infection or inflammatory condition more likely reason for the new right tracheobronchial lymph node, but should be watched to make sure it resolves or at least does not grow. 4. Recommend chest CT in about 3 months and be referred to [facility] if this were to be the case.
[2024-06-06] MEDS: INSULIN LISPRO (AdmeLOG) 1 UNIT/0.01 ML UNIT SC ×3 (07:42→21:44)
[2024-06-06] MEDS: LOSARTAN POTASSIUM 25 MG TABLET 50 MG PO (08:45)
[2024-06-06] MEDS: INSULIN GLARGINE (Lantus) 5 UNIT/0.05 ML (PER 5 UNITS) 10 UNIT SC (08:46)
[2024-06-06] MEDS: FUROSEMIDE INJ 10 MG/ML 4ML VIAL 40 MG IVP (08:49)
--- NOTE | 2024-06-06 11:29 | ESPR_ITS ---
Documentation for date of: 06/06/24 Subjective Subjective Interval history: Usha Cooper is a 74-y/o female with PMHx of HTN, T2DM, HLD, and iron deficiency anemia who presents with SOB. She was already in the ED for blood transfusion and received 2 PRBC when she reported feeling worsening of her shortness of breath. She was given one-time dose of Lasix without significant improvement and ER contacted hospitalist team for admission. Of note, patient started becoming SOB on 3rd of this month and was recently admitted to the hospital prior for CAP and ARHF, was discharged home but no medications were sent. Since discharge from prior hospitalization did not feel better, endorses SOB even at rest, and has home oxygen which helps only a little bit. 06/05: No acute overnight events reported. Seen and examined at bedside. Upon further history, patient endorses orthopnea but no PND or bilateral lower extremity swelling. No history of smoking. Saturating at 95 to 96% on 3 L nasal cannula. 06/06: No acute overnight events reported. Seen and examined at bedside and does not have any new complaints. She was saturating well on 3 L nasal cannula and was weaned off to room air and saturating 95%. Spoke to outer diameter technician today and he stated that patient had a previous echo done on 05/09/2024 but was not uploaded to [employer]. Report is uploaded and showed EF 55 to 60%, grade 3 diastolic dysfunction, moderate pulmonary hypertension and moderate TR. Exam Vital Signs Temp Pulse Resp BP Pulse Ox O2 Del Method O2 Flow Rate 97.9 F 72 18 152/67 H 98 Nasal Cannula 3 06/06/24 08:00 06/06/24 08:49 06/06/24 08:26 06/06/24 08:49 06/06/24 08:26 06/06/24 08:00 06/06/24 08:26 Narrative Exam General: AOx3, no acute distress, able to speak full sentences HEENT: NC/AT, mucous membranes moist, bilateral sclera anicteric Cardiovascular: regular rate and rhythm, S1/S2 present, no murmurs appreciated Pulmonary: no crackles or wheezing appreciated on exam Abdominal: soft, non-tender, non-distended, no rebound/guarding, normal bowel sounds present Musculoskeletal: normal ROM, no peripheral edema Skin: warm and dry, intact, no rashes Neuro: CN II-XII intact, no focal deficits Objective Labs 06/06/24 04:45 06/06/24 04:45 Labs: Laboratory Results - last 24 hr 06/05/24 06/06/24 04:55 04:45 WBC 6.3 RBC 3.74 L Hgb 10.5 L Hct 31.5 L MCV 84 MCH 28.1 MCHC 33.3 RDW Std Deviation 47.7 H Plt Count 267 Neut % (Auto) 56 Lymph % (Auto) 20 [place] % (Auto) 16 H Eos % (Auto) 6 Baso % (Auto) 2 Neut # (Auto) 3.6 Lymph # (Auto) 1.3 [place] # (Auto) 1.0 H Eos # (Auto) 0.4 Baso # (Auto) 0.1 Immature Gran # (Auto) 0.01 H Absolute Nucleated RBC 0.00 Immature Gran % 0 Nucleated RBC % 0 Retic Count (auto) 3.4 H Absolute Retic 114.9 H Immature Retic Fraction 32.7 H Retic Hgb Content CHr 30.7 Sodium 138 Potassium 4.1 Chloride 104 Carbon Dioxide 26.1 Anion Gap 8 BUN 17 Creatinine 0.8 Estim Creat Clear Calc 57.8 L eGFR > 60 BUN/Creatinine Ratio 21 H Glucose 143 H Calculated Osmolality 279 Calcium 10.1 Corrected Calcium 10.3 H Phosphorus 3.3 Magnesium 1.9 Total Bilirubin 1.0 AST 12 ALT 16 Alkaline Phosphatase 62 Total Protein 7.3 Albumin 3.8 Globulin 3.5 Albumin/Globulin Ratio 1.1 L Coccidioides IgM Ab Negative ABG Interpretation ABG results: 06/04/24 23:30 VBG pH 7.40 VBG pCO2 35 L VBG pO2 47 VBG Base Excess -3 Quality Measures Quality Measures none Advance care planning discussed with:: patient Assessment & Plan Assessment Current Active Medications: Generic Name Dose Route Start Last Admin Trade Name Freq PRN Reason Stop Dose Admin Acetaminophen 650 mg 06/04/24 23:56 06/05/24 21:37 Acetaminophen 325 Mg Tablet PO 07/04/24 23:55 650 mg Q6H PRN Administration PAIN OR FEVER > 101 Dextrose 25 ml 06/05/24 00:01 Dextrose 50%-Water Inj 50 Ml Syringe IV 07/05/24 00:00 Q15MIN PRN BG 50-70 responsive npo pt Dextrose 50 ml 06/05/24 00:01 Dextrose 50%-Water Inj 50 Ml Syringe IV 07/05/24 00:00 Q15MIN PRN BG <50 OR BG <70 & pt unresponsive Furosemide 40 mg 06/05/24 09:00 06/06/24 08:49 Furosemide Inj 10 Mg/Ml 4ml Vial IVP 07/05/24 08:59 40 mg QDAY SAVANNA Administration Glucagon 1 mg 06/05/24 00:01 Glucagon Inj 1 Mg Vial IM Q15MIN PRN BG <70, and no IV access Hydralazine HCl 10 mg 06/05/24 00:07 Hydralazine Inj 20 Mg/Ml Vial IV 07/05/24 00:06 Q6HR PRN SBP > 160 Piperacillin/Tazobactam/Dextrose 3.375 gm in 50 mls @ 12.5 mls/hr 06/05/24 06:00 06/06/24 05:31 Zosyn IV 06/12/24 00:05 12.5 mls/hr Q8HR SAVANNA Administration Insulin Glargine 10 unit 06/05/24 09:00 06/06/24 08:46 Insulin Glargine (Lantus) 5 Unit/0.05 Ml (Per 5 Units) SC 07/05/24 08:59 10 unit QDAY SAVANNA Administration Insulin Human Lispro 0 unit 06/06/24 07:44 06/06/24 11:05 Insulin Lispro (Admelog) 1 Unit/0.01 Ml Unit SC 07/05/24 07:29 Not Given AC REPLACED BY [facility] Protocol Losartan Potassium 50 mg 06/05/24 09:00 06/06/24 08:45 Losartan Potassium 25 Mg Tablet PO 07/05/24 08:59 50 mg QDAY SAVANNA Administration Ondansetron HCl 4 mg 06/04/24 23:56 Ondansetron Inj 2 Mg/Ml Inj 2 Ml IV 07/04/24 23:55 Q6H PRN NAUSEA OR VOMITING Protocol Sennosides 2 tab 06/04/24 23:56 Senna Tablet PO 07/04/24 23:55 BID PRN CONSTIPATION Protocol Zolpidem Tartrate 5 mg 06/04/24 21:00 06/05/24 08:35 Zolpidem 5 Mg Tablet PO 07/04/24 20:59 Not Given HS REPLACED BY [facility] Plan Usha Cooper is a 74-y/o female with PMHx of HTN, T2DM, HLD, and iron deficiency anemia who presents with SOB. She was already in the ED for blood transfusion and received 2 PRBC when she reported feeling worsening of her shortness of breath. She was given one-time dose of Lasix without significant improvement and ER contacted hospitalist team for admission. Of note, patient started becoming SOB on 3rd of this month and was recently admitted to the hospital prior for CAP and ARHF, was discharged home but no medications were sent. Since discharge from prior hospitalization did not feel better, endorses SOB even at rest, and has home oxygen which helps only a little bit. #Acute vs acute on chronic hypoxic respiratory failure #HFpEF (EF 55-60%) #CHF vs pulmonary hypertension vs atypical pneumonia Worsening SOB over the course of the month, to point where patient feels SOB at rest. Denied nausea, vomiting, diarrhea, any fevers or excessive phlegm or cough. WBC normal, no fevers, procal negative. CT chest on 05/11/2024 showed 18 mm right tracheobronchial lymph node, which is a new lesion compared to study on 05/01. BNP 300s, endorses orthopnea but no PND. Echo in 2022 showed normal EF but moderate pulmonary HTN (RVSP 50 mmHg, RAP 10 mmHg). Echo 05/09/2024: EF 55 to 60%, grade 3 diastolic dysfunction, moderate pulmonary HTN (RVSP 55 mmHg) and moderate TR. ? Zosyn (06/05-06/06) de-escalated to ceftriaxone (06/06-) ? Consider pulmonary consultation for PAH ? Cocci IgG and IgM negative ? Follow-up serum IgE, beta-D glucan ? Follow-up sputum cultures ? PFTs ordered ? Lasix 40 mg IV daily ? Fluid restriction of 1.5 L/day #Mediastinal lymphadenopathy CT chest on 05/11/2024: 18 mm right tracheobronchial lymph node, which is a new lesion compared to study in 05/01. ? Oncology consulted, appreciate recommendations ? Obtain CT chest 3 months after discharge #Chronic normocytic anemia #Iron deficiency anemia Diagnosis of iron deficiency anemia, chronic persistent anemia 2 PRBCs transfused. Iron 23, TIBC 280, iron saturation 8%. Reticulocyte 3.4%, indicating intact bone marrow. ? Consider heme-onc referral for workup of anemia on outpatient basis ? Monitor CBC and transfuse if hgb < 7.0 #Type 2 diabetes mellitus ? Glargine 10 units SC daily ? SSI ? Hypoglycemic protocol in place #History of hypertension ? Losartan 50 mg p.o. daily ? Hydralazine 10 mg IV every 6 hours as needed ? Lasix 40 mg IV daily #Hyperlipidemia ? Pending med rec Hospital management: Disposition: pending pulmonology consult tomorrow Fluids: not indicated Diet: cardiac Lines: PIV DVT prophylaxis: SCDs GI prophylaxis: not indicated CODE STATUS: full code ----- Plan discussed with attending physician Dr. Mahesh Ramos MD PGY-1 Internal Medicine Attending Provider Attestation/Addendum I reviewed labs, imaging, EKG, home medications and prior available records. Face to face evaluation was performed by me. I have personally examined the patient and discussed assessment and plan with the IM team. I reviewed the resident note and agree with the plan with exceptions as below. Acute hypoxic respiratory failure Healthcare associated pneumonia Chronic HFpEF Acute on chronic anemia Mediastinal lymphadenopathy Status post 2 PRBC transfusion. Monitor H&H posttransfusion Continue IV Zosyn Follow-up cultures Continue IV Lasix Wean off oxygen as tolerated Follow-up echocardiogram: Showed preserved EF of 55 to 60% and grade 3 diastolic dysfunction and elevated RVSP of 55. Follow-up with cardiology Consulted oncology for further recommendations regarding the lymphadenopathy and significant anemia: Could be inflammatory versus infectious. Recommend repeat CT chest in 3 months. Patient is aware of these findings Ordered PT evaluation
--- NOTE | 2024-06-06 12:28 | PC.SS ---
SS follow up note; Echo pending, weaning down on 02, patient is on 3L of 02. when medically cleared, patient will return home.
[2024-06-06 12:48] LABS: Cocci Serology, IgG Negative (Negative)
[2024-06-06] MEDS: cefTRIAXone/D5w 1gm IV premix 1 GM/50 ML BAG IV (15:43)
[2024-06-06] MEDS: ONDANSETRON INJ 2 MG/ML INJ 2 ML 4 MG IV (15:43)
[2024-06-06] MEDS: ZOLPIDEM 5 MG TABLET PO (20:40)
[2024-06-06] MEDS: MELATONIN 3 MG TABLET PO (20:40)
--- NOTE | 2024-06-06 20:44 | PC.NURSE ---
Notify MD Catherine of pt's Blood Sugar 232. MD will check the chart. No new orders received.
[2024-06-07] VITALS (8 sets, daily range): BP systolic 128–156; BP diastolic 53–78; PULSE 64–94; RESP 16–19; TEMP 36.3–37; O2SAT 90–98
[2024-06-07] MEDS: INSULIN GLARGINE (Lantus) 5 UNIT/0.05 ML (PER 5 UNITS) 10 UNIT SC (08:48)
[2024-06-07] MEDS: INSULIN LISPRO (AdmeLOG) 1 UNIT/0.01 ML UNIT SC ×2 (08:50→11:43)
[2024-06-07] MEDS: FUROSEMIDE INJ 10 MG/ML 4ML VIAL 40 MG IVP (08:51)
[2024-06-07] MEDS: LOSARTAN POTASSIUM 25 MG TABLET 50 MG PO (08:52)
[2024-06-07] MEDS: cefTRIAXone/D5w 1gm IV premix 1 GM/50 ML BAG IV (08:53)
--- NOTE | 2024-06-07 11:28 | PD.RESDS ---
Planned Discharge Date 06/07/24 DS: Providers Provider Date of admission: 06/05/24 00:17 Primary care physician: Ivonne Briseno NP Admitting Provider: Jamari Yost MD Attending Provider on Admission: Ga Aragon MD Consults: 06/04/24 23:59 Referral Physical Therapy Stat Comment: Physician Instructions: 06/05/24 00:04 Referral Registered Dietitian Routine Comment: 06/05/24 00:05 Referral Registered Dietitian Urgent Comment: 06/05/24 03:47 [facility] Referral - Knowledge Deficit Routine Comment: Positive screening for knowledge deficit needs. 06/05/24 10:34 Consult to Oncology Routine Comment: 18 mm lymph node, biopsy? Consulting Provider: Scotty Curtis Attending Provider on DC: Ephraim Ramos MD Discharging Provider: Ephraim Ramos MD DS: Diagnosis Problem List Completed Was Problem List Reviewed/Reconciled?: Yes Hospital Course Hospital Course Hospital course: Usha Cooper is a 74-y/o female with PMHx of HTN, T2DM, HLD, and iron deficiency anemia who presents with SOB. She was already in the ED for blood transfusion and received 2 PRBC when she reported feeling worsening of her shortness of breath. She was given one-time dose of Lasix without significant improvement and ER contacted hospitalist team for admission. Of note, patient started becoming SOB on 3rd of this month and was recently admitted to the hospital prior for CAP and ARHF, was discharged home but no medications were sent. Since discharge from prior hospitalization did not feel better, endorses SOB even at rest, and has home oxygen which helps only a little bit. Throughout hospitalization, no acute events occurred. Upon further history taking, patient did endorse orthopnea and bilateral lower extremity edema but no PND and so further workup for heart failure was pursued. Spoke to Clarassance who stated that previous echo obtained on 05/09 was in [employer] but not on [employer] and requested IT to upload report, which showed EF 55 to 60%, grade 3 diastolic dysfunction, RVSP 55 mmHg, moderate pulmonary hypertension, moderate TR. Additionally, 18 mm mediastinal lymph node seen on CT and oncology recommended to obtain repeat CT chest in 3 months. Given that patient no longer endorsing shortness of breath and was able to work with physical therapy without difficulty, VSS stable (saturating 95%on room air), and labs reviewed and stable then she was deemed stable for discharge. Recommended patient to obtain cardiology referral for further management of HFpEF and to continue lasix until then. Diagnoses during admission: #Acute vs acute on chronic hypoxic respiratory failure #HFpEF (EF 55-60%) #Mediastinal lymphadenopathy #Chronic normocytic anemia #Iron deficiency anemia #Type 2 diabetes mellitus #History of hypertension #Hyperlipidemia Discharge instructions: - Start taking amoxicillin 500 mg twice per day for a total of three more days to finish antibiotic course - Start taking lasix 40 mg daily - Start taking insulin glargine 10 units daily and continue all other oral medications for diabetes - Hold insulin glargine 30 units and levemir until you follow-up with your PCP - Follow-up with your PCP within 1 week of discharge for medication reconciliation/optimization - Obtain referral for cardiology from your PCP for further management of HFpEF - Continue all other home medications as prescribed - Return to the ED if symptoms worsen or recur ----- Plan discussed with attending physician Dr. Mahesh Ramos MD PGY-1 Internal Medicine Time Spent with Patient Time attestation: Total time spent providing and/or coordinating discharge services: Exam Vital Signs Temp Pulse Resp BP Pulse Ox O2 Del Method O2 Flow Rate 98.6 F 82 19 136/61 H 96 Nasal Cannula 1 06/07/24 08:00 06/07/24 10:29 06/07/24 08:00 06/07/24 08:52 06/07/24 08:00 06/07/24 08:00 06/07/24 08:00 Narrative Exam General: AOx3, no acute distress, able to speak full sentences HEENT: NC/AT, mucous membranes moist, bilateral sclera anicteric Cardiovascular: regular rate and rhythm, S1/S2 present, no murmurs appreciated Pulmonary: no crackles or wheezing appreciated on exam Abdominal: soft, non-tender, non-distended, no rebound/guarding, normal bowel sounds present Musculoskeletal: normal ROM, no peripheral edema Skin: warm and dry, intact, no rashes Neuro: CN II-XII intact, no focal deficits Discharge Plan Plan Patient Disposition: HOME (Self Care) Patient condition on transfer: Stable Care Plan Goals: - Start taking amoxicillin 500 mg twice per day for a total of three more days to finish antibiotic course - Start taking lasix 40 mg daily - Start taking insulin glargine 10 units daily and continue all other oral medications for diabetes - Hold insulin glargine 30 units and levemir until you follow-up with your PCP - Follow-up with your PCP within 1 week of discharge for medication reconciliation/optimization - Obtain referral for cardiology from your PCP for further management of HFpEF - Continue all other home medications as prescribed - Return to the ED if symptoms worsen or recur Prescriptions/Referrals Prescriptions/Med Rec: New amoxicillin 500 mg tablet 1,000 mg PO TID 3 Days Qty: 18 0RF furosemide [Lasix] 40 mg tablet 40 mg PO QDAY Qty: 30 0RF (DME) pen needle, diabetic 29 gauge x 1/2 needle See Rx Instructions .Route Qty: 100 0RF Rx Instructions: As directed (DME) blood-glucose meter Kit See Rx Instructions .Route Qty: 1 0RF Rx Instructions: As directed (DME) Blood Glucose Test Strip See Rx Instructions .Route Qty: 50 0RF Rx Instructions: As directed (DME) lancets Misc See Rx Instructions .Route Qty: 100 0RF Rx Instructions: As directed insulin glargine 100 unit/mL (3 mL) insulin pen 10 unit subcut QPM Qty: 15 0RF Continued amlodipine 10 mg tablet 10 mg PO QDAY Qty: 30 0RF trazodone 50 mg tablet 50 mg PO HS PRN (Reason: Pain) Qty: 30 0RF Tradjenta 5 mg tablet 5 mg PO QDAY Qty: 30 0RF losartan 50 mg tablet 50 mg PO QDAY Qty: 30 0RF metformin 1,000 mg tablet 1,000 mg PO BID 30 Days Qty: 60 0RF ferrous sulfate 325 mg (65 mg iron) tablet,delayed release (DR/EC) 325 mg PO QDAY Qty: 30 0RF Jardiance 25 mg Tablet 25 mg PO QDAY Held Levemir U-100 Insulin 100 unit/mL solution 30 unit SUBCUT QDAY 30 Days Qty: 10 2RF Hold Instructions: Resume on 06/21/24. Rx Instructions: Deliver to [facility] in [place] insulin glargine [Basaglar KwikPen U-100 Insulin] 100 unit/mL (3 mL) insulin pen 30 unit subcut QAM Qty: 15 0RF Hold Instructions: Resume on 06/21/24. Referrals: [facility] FILM RECORDIST,Ivonne Pulido NP [Primary Care Provider] - Patient/Caregiver Discharge Instructions Education Materials: Heart Failure Dc Print Language: Scottish Stand Alone Forms: [employer] Award Info., Patient Portal Info Letter Discharge Order Discharge Orders: Discharge (Routine); Ordered 06/07/24 Ordered By: Ephraim Ramos Quality Discharge Quality Measures VTE prophylaxis Attestestation Attestation I reviewed labs, imaging, EKG, home medications and prior available records. Face to face evaluation was performed by me. I have personally examined the patient and discussed assessment and plan with the IM team. I reviewed the resident note and agree with the plan with exceptions as below. Acute hypoxic respiratory failure Healthcare associated pneumonia Chronic HFpEF Acute on chronic anemia Mediastinal lymphadenopathy Status post 2 PRBC transfusion. Monitor H&H posttransfusion Will discharge on amoxicillin P.o. Lasix 40 mg daily She is on room air Follow-up echocardiogram: Showed preserved EF of 55 to 60% and grade 3 diastolic dysfunction and elevated RVSP of 55. Follow-up with cardiology as outpatient Consulted oncology for further recommendations regarding the lymphadenopathy and significant anemia: Could be inflammatory versus infectious. Recommend repeat CT chest in 3 months. Patient is aware of these findings Ordered PT evaluation: No need for SNF Time spent is 40 minutes. More than 50% of the time was spent on patient education and coordination of care.
[2024-06-08 17:50] LABS: (1-3)-B-D-glucan* <31 pg/mL
[2024-06-09 07:18] LABS: IgE, Serum* 95 kU/L (114 OR LESS); Interpretation NEGATIVE
== END 2024-06-07 12:30 | disposition home or self-care (01) | DRG 189 ==
LOC: SERX 22:54 → SERHOLD 06-05 00:30 → S3NX 06-05 03:22
PROVIDERS: Emergency Medicine; Registered Nurse General Practice; Student in an Organized Health Care Education/Training Program; Admitting Provider Internal Medicine; Emergency Provider Emergency Medicine; PCP Nurse Practitioner Family; Visit Provider Student in an Organized Health Care Education/Training Program
DX: J96.21 Acute and chronic respiratory failure with hypoxia (principal); J18.9 Pneumonia, unspecified organism; I50.32 Chronic diastolic (congestive) heart failure; I11.0 Hypertensive heart disease with heart failure; D50.9 Iron deficiency anemia, unspecified; E11.9 Type 2 diabetes mellitus without complications; E78.5 Hyperlipidemia, unspecified; I25.10 Atherosclerotic heart disease of native coronary artery without angina pectoris; R59.0 Localized enlarged lymph nodes; I27.20 Pulmonary hypertension, unspecified; Y95 Nosocomial condition; E11.69 Type 2 diabetes mellitus with other specified complication; E66.9 Obesity, unspecified; Z79.4 Long term (current) use of insulin; Z79.899 Other long term (current) drug therapy
CPT/HCPCS: 36415; 36430; 71045; 80053; 80061; 80307; 81001; 82785; 82803; 83540; 83550; 83615; 83735; 83880; 84100; 84145; 84439; 84443; 84484; 85025; 85046; 85610; 85652; 85730; 86331; 86635; 86850; 86900; 86901; 86923; 87081; 87205; 87449; 87811; 93005; 93225; 96365; 96375; 97162; 99291; J0696; J1815; J1940; J2405; J2543; P9016; A9270

== ENCOUNTER 2024-09-01 07:05 | Day surgery (SDC) | payer MEDICARE, MEDICAID, SELFPAY ==
--- NOTE | 2024-08-31 07:00 | EKG_ITS ---
[facility] Test Date: 2024-08-31 Pat Name: FRANCIS DUTTONDepartment: Room: - Gender: Female Respiratory Technician: LUCAS : 1950 Requested By: Sathya Villar Order Number: [id number] Reading MD: Sathya Villar Measurements Intervals [place] Rate: 86 P: NC: QRS: 250 QRSD: 126 T: 89 QT: 350 QTc: 421 Interpretive Statements ATRIAL FIBRILLATION POSSIBLE RIGHT VENTRICULAR HYPERTROPHY [SOME/ALL OF: PROMINENT R IN V1, LATE TRANSITION, RAD, MACY, SSS] SEPTAL MYOCARDIAL INFARCTION , PROBABLY OLD [40+ ms Q WAVE IN V1/V2] LATERAL MYOCARDIAL INFARCTION , OF INDETERMINATE AGE [40+ ms Q WAVE AND/OR ST/T ABNORMALITY IN I/aVL/V5/V6] Compared to ECG 06/04/2024 12:55:02 Sinus rhythm no longer present Left-axis deviation no longer present Myocardial infarct finding still present /store/[id number]
[2024-08-31 14:03] LABS: Basophils # (Auto) 0.1 Thou/mm3 (0.0-0.2); Basophils % (Auto) 1 % (0-2.5); Eosinophils # (Auto) 0.1 Thou/mm3 (0.0-0.5); Eosinophils % (Auto) 2 % (0-10); Hematocrit 29.7 % (36.0-46.0); Immature Granulocytes % (Auto) 0 % (0-0); Immature Granulocytes Auto 0.01 Thou/mm3 (0.00-0.00); Lymphocytes # (Auto) 1.9 Thou/mm3 (1.0-4.8); Lymphocytes % (Auto) 37 % (10-50); Mean Corpuscular HGB Conc 33.7 g/dl (31.0-37.0); Mean Corpuscular Hemoglobin 28.7 pg (25.0-35.0); Mean Corpuscular Volume 85 fL (80-100); Monocytes # (Auto) 0.6 Thou/mm3 (0.0-0.8); Monocytes % (Auto) 12 % (0-12); Neutrophils # (Auto) 2.4 Thou/mm3 (1.8-7.7); Neutrophils % (Auto) 48 % (37-80); Nucleated Red Blood Cell % 0 /100 WBC (0); Platelet Count 186 Thou/mm3 (140-440); RDW Standard Deviation 51.6 fL (36.4-46.3); Red Blood Count 3.49 Miln/mm3 (4.00-5.20); White Blood Count 5.1 Thou/mm3 (3.6-11.0)
[2024-08-31 14:13] LABS: Partial Thromboplastin Time 25.6 Seconds (22.0-36.0)
[2024-08-31 14:15] LABS: COVID-19 Antigen (In-House) Negative (Negative)
[2024-08-31 14:18] LABS: Anion Gap 5 (7-16); BUN/Creatinine Ratio 22 Ratio (12-20); Blood Urea Nitrogen 24 mg/dL (9-23); Calcium 9.6 mg/dL (8.3-10.6); Carbon Dioxide 27.9 mMol/L (20.0-31.0); Chloride 106 mMol/L (98-107); Creatinine (Component) 1.1 mg/dL (0.6-1.3); Glucose 106 mg/dL (74-106); Osmolality,Calculated 281 (275-295); Potassium 5.3 mMol/L (3.4-5.1); Sodium 139 mMol/L (136-145); eGFR 53 See Note
[2024-09-01] VITALS (12 sets, daily range): BP systolic 107–145; BP diastolic 65–84; PULSE 66–98; RESP 12–22; TEMP 36.2–36.6; O2SAT 87–96; BMI 31.8
[2024-09-01] MEDS: DIAZEPAM 5 MG TABLET PO (07:44)
--- NOTE | 2024-09-01 08:19 | ESOP_ITS ---
Cardiac Cath Procedure Procedure Narrative Procedure date 09/01/2024 Title of the procedure 1.left heart catheterization 2.left coronary angiogram 3.right coronary angiogram 4.left ventriculogram 5.conscious sedation 6.radiographic interpretation supervision 7.ultrasound guidance for right radial access Indication for the procedure This is a 74-year-old female with past medical history of hypertension diabetes hyperlipidemia Patient was complaining of atypical chest pain Cardiolite scan was equivocal therefore cardiac catheter and coronary angiogram recommended as she She was having ongoing symptoms Procedure This is done in the cardiac lab under current electrocardiographic monitoring intermittent blood pressure monitoring Right radial access obtained using ultrasound guidance and 6 Indonesian sheath was placed TIG 4 catheter used for selective into the left coronary artery TIG 4 catheter was used for selective in the right coronary artery TIG 4 catheter used for left ventriculogram Findings Hemodynamics Overall left ventricular systolic function appears normal Approximate ejection fraction 55% End-diastolic pressure was 16 mmHg There is no gradient across the aortic valve Coronary anatomy 1.left main coronary artery appears normal 2.left anterior descending artery does not seem to have any significant lesion, luminal irregularities noted close to the apex 3.left circumflex is does not seem to have any significant lesion 4.obtuse marginal has minor luminal irregularities 5.right coronary is a dominant vessel, no significant lesion noted 6.PDA has luminal irregularities Conclusion no significant coronary lesion Continue medical management
== END 2024-09-01 11:48 | disposition home or self-care (01) ==
PROVIDERS: Referring Provider Internal Medicine; Visit Provider Internal Medicine
PROC: (CPT 93458; principal; 2024-09-01 07:30)
DX: I25.119 Atherosclerotic heart disease of native coronary artery with unspecified angina pectoris (principal); E11.9 Type 2 diabetes mellitus without complications; E78.5 Hyperlipidemia, unspecified; I10 Essential (primary) hypertension; Z01.810 Encounter for preprocedural cardiovascular examination
CPT/HCPCS: 93458; 36415; 80048; 85025; 85610; 85730; 87811; 93005; 99152; A4649; C1769; C1887; C1894; J0171; J0461; J1643; J2250; J2310; J2371; J3010; J3490; Q9967; A9270; J2305

== ENCOUNTER 2025-02-23 12:08 | Emergency (ER) | payer MEDICARE, MEDICAID, SELFPAY ==
--- NOTE | 2025-02-23 12:23 | XR_ITS ---
EXAMINATION: AP chest single view TECHNIQUE: AP portable upright chest single view Date and time: February 23, 2025, 12:35 p.m., comparison June 04, 2024 INDICATIONS: Coughing today FINDINGS: Mild heart failure Mild to moderate enlargement cardiac contour. Prominent vascular congestion with perihilar basilar edema Prominent osteopenia IMPRESSION: Mild heart failure Consider superimposed pneumonia right base
--- NOTE | 2025-02-23 12:23 | EKG_ITS ---
[facility] [place] Test Date: 2025-02-23 Pat Name: FRANCIS DUTTONDepartment: Room: - Gender: Female [employer] Technical Assistant: : 1950 Requested By: Aayush Farley Order Number: [id number] Reading MD: Aayush Farley Measurements Intervals [place] Rate: 91 P: MT: QRS: -85 QRSD: 126 T: 89 QT: 381 QTc: 470 Interpretive Statements ATRIAL FIBRILLATION LEFT AXIS DEVIATION [QRS AXIS < -30] SEPTAL MYOCARDIAL INFARCTION , OF INDETERMINATE AGE [40+ ms Q WAVE IN V1/V2] Compared to ECG 08/31/2024 13:52:55 Left-axis deviation now present Myocardial infarct finding still present /store/S0/[id number]
--- NOTE | 2025-02-23 12:25 | PD.EDSOB ---
ED SOB =RME/HPI General Chief Complaint: Flu Like Symptoms Stated Complaint: COUGH/SOB Time Seen by Provider: 02/23/25 12:20 Arrival date/time: 02/23/25 12:08 74-year-old female patient with significant history of hypertension diabetes mellitus CHF was brought in by family for evaluation regarding worsening cough and shortness of breath. Been having cough for the last 5 days, associated with chest pain and coughing, and today patient noticed hypoxia. Despite using 2 L oxygen at home. When the patient arrived in the triage patient was satting 88%. No fever was noted. Denies any other complaints no medication was taken prior to ER visit. Related Data Home Medications ?Medication ?Instructions ?Recorded ?Confirmed empagliflozin 25 mg tablet 25 mg PO QDAY 04/30/22 09/01/24 (Jardiance) fluoxetine 20 mg capsule 20 mg PO QDAY 09/01/24 09/01/24 gabapentin 300 mg capsule 300 mg PO .qhs 09/01/24 09/01/24 metformin 1,000 mg tablet 1,000 mg PO BID 09/01/24 09/01/24 Held on 09/01/24. Instructions: Resume on 09/03/24. Previous Rx's ?Medication ?Instructions ?Recorded amlodipine 10 mg tablet 10 mg PO QDAY #30 tabs 05/06/24 ferrous sulfate 325 mg (65 mg 325 mg PO QDAY #30 tabs 05/19/24 iron) tablet,delayed release linagliptin 5 mg tablet (Tradjenta) 5 mg PO QDAY #30 tabs 05/19/24 losartan 50 mg tablet 50 mg PO QDAY #30 tabs 05/19/24 insulin glargine 100 unit/mL (3 30 unit (0.3 mL) subcut QAM #15 mL 05/23/24 mL) subcutaneous pen (Basaglar KwikPen U-100 Insulin) blood sugar diagnostic (Blood #50 ea 06/07/24 Glucose Test strips) blood-glucose meter #1 ea 06/07/24 lancets #100 ea 06/07/24 pen needle, diabetic 29 gauge x #100 ea 06/07/24 1/2 albuterol sulfate 90 mcg/actuation 2 inh inhalation Q8H PRN shortness 02/23/25 aerosol inhaler of breath or wheezing #8.5 grams amoxicillin 875 mg-potassium 1 tab PO BID #14 tabs 02/23/25 clavulanate 125 mg tablet azithromycin 250 mg tablet 250 mg PO QDAY 4 days #4 tabs 02/23/25 (Zithromax) ferrous sulfate 324 mg (65 mg 324 mg PO BID #60 tabs 02/23/25 iron) tablet,delayed release Allergies Allergy/AdvReac Type Severity Reaction Status Date / Time No Known Allergies Allergy Verified 02/23/25 12:13 Review of Systems Review of Systems Narrative Review of Systems: Review of system reviewed and within normal limits except mentioned in HPI ED Exam Narrative Physical exam: VITAL SIGNS: Reviewed. GENERAL APPEARANCE: Alert and interactive, follows commands, no acute distress, HEAD AND FACE: Non-traumatic. ENT: PERRL, pink conjunctivitis, eyelid no trauma, Mucous membrane moist. NECK: Supple, nontender, no nuchal rigidity. CHEST: No tenderness, no crepitus, no paradoxical movement, no retractions. LUNGS: Clear, well ventilated, symmetric, no rales, no wheezing, no ronchi, no stridor, good breath sounds bilaterally. HEART: Regular rate, regular rhythm, no murmur, no gallops. ABDOMEN: Soft, positive bowel sounds, nondistended, no guarding, nontender, no rebound, no masses, RECTAL: Deferred. GENITAL: Deferred. NEUROLOGICAL: Gross motor function intact sensory function intact, Appropriate for age. MUSCULOSKELETAL: low back nontender, full range of motion. EXTREMITIES: Nontender, full range of motion. SKIN: Color pink, dry, no rash, no lacerations, no abrasions, no contusions. LYMPHATICS: Deferred. Course Quality Measures none Orders Category Date Time Status Bedside COVID-19 Antigen Test NOW Care 02/23/25 12:23 Completed Bedside Influenza A&B Antigen Test NOW Care 02/23/25 12:24 Completed Bedside RSV Test NOW Care 02/23/25 12:23 Completed EKG (ED ONLY) *Do not use* NOW Care 02/23/25 12:23 Completed EKG (ED Only) Stat Exams 02/23/25 12:23 Draft XR chest 1V Stat Exams 02/23/25 12:23 Completed B-Type Natriuretic Peptide Stat Lab 02/23/25 13:01 Completed Blood Culture (Lab) Stat Lab 02/23/25 12:57 Received CBC Stat Lab 02/23/25 13:01 Completed Comprehensive Metabolic Panel Stat Lab 02/23/25 13:01 Completed Lactate (Lactic Acid) Stat Lab 02/23/25 13:01 Completed Partial Thromboplastin Time Stat Lab 02/23/25 13:01 Completed Procalcitonin Stat Lab 02/23/25 13:01 Completed Troponin I Stat Lab 02/23/25 13:01 Completed VBG [Venous Blood Gas] Stat Lab 02/23/25 13:01 Completed Azithromycin Inj [Zithromax Inj] 500 mg Med 02/23/25 14:50 Discontinued Sodium Chloride 0.9% 250 ml [Ns] 250 ml IV X1 cefTRIAXone/D5w 1gm IV premix [Rocephin/D5w 1gm IV Med 02/23/25 14:50 Discontinued premix] 1 gm in 50 ml IV X1 dexAMETHasone INJ [Decadron Inj] Med 02/23/25 15:48 Discontinued 10 mg IVP X1 ONE Vital Signs Vital signs: Vital Signs Temperature 97.5 F 02/23/25 12:28 Pulse Rate 110 H 02/23/25 12:28 Respiratory Rate 17 02/23/25 12:28 Blood Pressure 145/79 H 02/23/25 12:28 Pulse Oximetry (%) 100 02/23/25 12:28 Oxygen Delivery Method Nasal Cannula 02/23/25 12:28 Oxygen Flow Rate 3 02/23/25 12:28 Shortness of Breath / Dyspnea MDM Narrative MDM Narrative:: 74-year-old female patient with significant history of hypertension diabetes mellitus CHF was brought in by family for evaluation regarding worsening cough and shortness of breath. Been having cough for the last 5 days, associated with chest pain and coughing, and today patient noticed hypoxia. Despite using 2 L oxygen at home. When the patient arrived in the triage patient was satting 88%. No fever was noted. Denies any other complaints no medication was taken prior to ER visit. Patient denies any black stool or changes in the color of her stool. Patient CBC showed no leukocytosis. Except for hemoglobin of 8.9, hematocrit of 26.7. CMP unremarkable except for blood sugar 218 patient diabetic. Chest x-ray showed Mild heart failure Consider superimposed pneumonia right base EKG showed atrial fibrillation, ventricular rate of 91 bpm, no ST segment elevation depression noted. Patient was given IV ceftriaxone, IV Zithromax, Decadron IV, with significant improvement of symptoms. Was noted to be satting 95% on 2 L nasal cannula. Patient is using oxygen at home 29/09. She is stable for discharge home. Patient data External records reviewed:: None Clinical information provided by:: patient Social determinants that could affect healthcare access:: none Patient has the following chronic illnesses:: History of congestive heart failure,, hypertension, anemia How is presenting disease/condition affected by chronic disease/condition?: exacerbated by Evaluation data The following diagnostics were reviewed and interpreted by me:: lab results, radiology exam(s) and EKG tracing(s) Lab and/or radiology exams considered but not ordered:: None Interpretation Summary: See above Medications / Prescriptions Medications or Prescriptions considered but not ordered:: None Medication administrations:: Medication Administration History Discontinued Medications Dexamethasone Sodium Phosphate (Dexamethasone Sod Phos Inj 10 Mg/Ml Vial) 10 mg IVP X1 ONE Stop: 02/23/25 15:49 Last Admin: 02/23/25 17:03 Dose: 10 mg Documented By: JAELYN Ceftriaxone Sodium/Dextrose (Rocephin/D5w 1gm Iv Premix) 1 gm in 50 mls @ 100 mls/hr IV X1 ONE Stop: 02/23/25 15:19 Last Infusion: 02/23/25 17:40 Dose: Infused Documented By: Admin: 02/23/25 17:04 Dose: 100 mls/hr Documented By: JAELYN Azithromycin 500 mg/ Sodium (Chloride) 250 mls @ 250 mls/hr IV X1 ONE Stop: 02/23/25 15:49 Last Infusion: 02/23/25 19:15 Dose: Infused Documented By: Admin: 02/23/25 18:08 Dose: 250 mls/hr Documented By: JAELYN See above Consultations Consultation(s) initiated? (list below): No Diagnosis Shortness of Breath Differential Diagnosis: congestive heart failure, community acquired pneumonia and asthma with exacerbation Most likely diagnosis given after review of the tests above:: Pneumonia Admission Indicated Admission indicated?: not indicated Admission Request Was there a request for admission?: No Disposition Plan Disposition Plan: Discharge Discharge Attestation Discharge Attestation: The patient and all family members were given an opportunity to ask questions and understood the discharge instructions. Discharge instructions specifically effects, indications for sooner follow up or return to the emergency department, and the expected course of current diagnosis. Patient condition: Stable Discharge Plan Plan Patient Disposition: HOME (Self Care) Discharge Disposition comment: stable Prescriptions/Referrals Prescriptions/Med Rec: New azithromycin [Zithromax] 250 mg tablet 250 mg PO QDAY 4 Days Qty: 4 0RF Rx Instructions: start on day 2 of therapy albuterol sulfate 90 mcg/actuation HFA aerosol inhaler 2 inh inhalation Q8H PRN (Reason: shortness of breath or wheezing) Qty: 8.5 0RF amoxicillin-pot clavulanate 875-125 mg tablet 1 tab PO BID Qty: 14 0RF ferrous sulfate 324 mg (65 mg iron) tablet,delayed release (DR/EC) 324 mg PO BID Qty: 60 0RF No Action amlodipine 10 mg tablet 10 mg PO QDAY Qty: 30 0RF Tradjenta 5 mg tablet 5 mg PO QDAY Qty: 30 0RF losartan 50 mg tablet 50 mg PO QDAY Qty: 30 0RF ferrous sulfate 325 mg (65 mg iron) tablet,delayed release (DR/EC) 325 mg PO QDAY Qty: 30 0RF insulin glargine [Basaglar KwikPen U-100 Insulin] 100 unit/mL (3 mL) insulin pen 30 unit subcut QAM Qty: 15 0RF metformin 1,000 mg tablet 1,000 mg PO BID Patient Comments: TAKE 1 TABLET BY MOUTH TWICE A DAY gabapentin 300 mg capsule 300 mg PO .qhs Patient Comments: TOME 1 C PSULA POR V A ORAL TODOS LOS D fluoxetine 20 mg capsule 20 mg PO QDAY Patient Comments: TOME 1 CAPSULA POR VIA ORAL TODOS LOS SALAZAR 90 Jardiance 25 mg Tablet 25 mg PO QDAY (DME) pen needle, diabetic 29 gauge x 1/2 needle See Rx Instructions .Route Qty: 100 0RF Rx Instructions: As directed (DME) blood-glucose meter Kit See Rx Instructions .Route Qty: 1 0RF Rx Instructions: As directed (DME) Blood Glucose Test Strip See Rx Instructions .Route Qty: 50 0RF Rx Instructions: As directed (DME) lancets Misc See Rx Instructions .Route Qty: 100 0RF Rx Instructions: As directed Referrals: No Primary/Family,Physician [Primary Care Provider] - In 1 week Problem List Clinical Impression: Pneumonia, Anemia Patient/Caregiver Discharge Instructions Education Materials: Treating Pneumonia Additional Instructions: Thank you for the opportunity for serving you today. You are stable for discharged . You are advised to: Follow-up with your PCP in 1 to 2 days Return to ED for worsening of symptoms Increase oral fluids Take medication as prescribed Print Language: Croatian Stand Alone Forms: [facility] Award Info., Patient Portal Info Letter PA/TANK PUMPER Supervising Physician CHANDA/LIZANDRO Supervising Physician: MD Codey
[2025-02-23 12:28] VITALS: BP 145/79; PULSE 110; RESP 17; TEMP 36.4; O2SAT 100; BMI 33.9
[2025-02-23 13:17] LABS: Base Excess, Venous -1 (-3-3); Lactate (Lactic Acid) 1.9 mMol/L (0.4-2.0); O2 Saturation, Venous 89 % (96-97); PCO2, Venous 39 mmHg (36-56); PO2, Venous 56 mmHg (15-58); pH, Venous 7.40 (7.33-7.66)
[2025-02-23 13:27] LABS: Basophils # (Auto) 0.0 Thou/mm3 (0.0-0.2); Basophils % (Auto) 1 % (0-2.5); Eosinophils # (Auto) 0.0 Thou/mm3 (0.0-0.5); Eosinophils % (Auto) 1 % (0-10); Hematocrit 26.7 % (36.0-46.0); Hemoglobin 8.9 g/dL (12.0-16.0); Immature Granulocytes Auto 0.02 Thou/mm3 (0.00-0.00); Lymphocytes # (Auto) 0.8 Thou/mm3 (1.0-4.8); Lymphocytes % (Auto) 18 % (10-50); Mean Corpuscular HGB Conc 33.3 g/dl (31.0-37.0); Mean Corpuscular Hemoglobin 29.8 pg (25.0-35.0); Mean Corpuscular Volume 89 fL (80-100); Monocytes # (Auto) 0.3 Thou/mm3 (0.0-0.8); Monocytes % (Auto) 7 % (0-12); Neutrophils # (Auto) 3.3 Thou/mm3 (1.8-7.7); Neutrophils % (Auto) 73 % (37-80); Nucleated Red Blood Cell # 0.00 Thou/mm3 (0.00-0.00); Nucleated Red Blood Cell % 0 /100 WBC (0); Platelet Count 234 Thou/mm3 (140-440); RDW Standard Deviation 53.2 fL (36.4-46.3); Red Blood Count 2.99 Miln/mm3 (4.00-5.20); White Blood Count 4.4 Thou/mm3 (3.6-11.0)
[2025-02-23 13:35] LABS: Partial Thromboplastin Time 23.9 Seconds (22.0-36.0)
[2025-02-23 13:47] LABS: Alanine Aminotransferase 31 U/L (10-49); Albumin, Serum 4.3 gm/dL (3.4-4.8); Albumin/Globulin Ratio 1.2 (1.2-2.2); Alkaline Phosphatase 64 U/L (46-116); Anion Gap 11 (7-16); Aspartate Amino Transferase 30 U/L (0-34); BUN/Creatinine Ratio 30 Ratio (12-20); Bilirubin,Total 0.6 mg/dL (0.3-1.2); Blood Urea Nitrogen 36 mg/dL (9-23); Calcium 9.6 mg/dL (8.3-10.6); Calcium (Corrected) 9.6 mg/dL (8.5-10.1); Carbon Dioxide 23.4 mMol/L (20.0-31.0); Chloride 101 mMol/L (98-107); Creatinine (Component) 1.2 mg/dL (0.6-1.3); Estimated Creatinine Clearance 41.4 mL/min (>60); Globulin 3.7 gm/dL (2.3-3.5); Glucose 218 mg/dL (74-106); Osmolality,Calculated 285 (275-295); Potassium 4.5 mMol/L (3.4-5.1); Procalcitonin 0.07 ng/ml (0.0-0.49); Sodium 135 mMol/L (136-145); Total Protein 8.0 gm/dL (5.7-8.2); Troponin I < 0.020 ng/mL (0.0-0.045); eGFR 48 See Note
[2025-02-23 13:53] LABS: B-Type Natriuretic Peptide 197 pg/mL (0-100)
[2025-02-23 15:00] VITALS: BP 131/86; PULSE 69; RESP 16; TEMP 36.7; O2SAT 95
[2025-02-23] MEDS: cefTRIAXone/D5w 1gm IV premix 1 GM/50 ML BAG IV (17:04)
[2025-02-23 17:09] VITALS: BP 125/75; PULSE 86; RESP 19; TEMP 37.1; O2SAT 95
[2025-02-23] MEDS: AZITHROMYCIN INJ 500 MG in SODIUM CHLORIDE 0.9% 250 ML 250 ML 250 MG IV (18:08)
[2025-02-23 18:18] VITALS: BP 141/81; PULSE 83; RESP 15; TEMP 37; O2SAT 95
[2025-02-23 19:52] VITALS: BP 143/101; PULSE 75; RESP 19; TEMP 36.9; O2SAT 95
== END 2025-02-23 20:43 | disposition home or self-care (01) ==
PROVIDERS: Nurse Practitioner Family; Emergency Provider Family Medicine
DX: J18.9 Pneumonia, unspecified organism (principal); D64.9 Anemia, unspecified; I11.0 Hypertensive heart disease with heart failure; I50.9 Heart failure, unspecified; I48.91 Unspecified atrial fibrillation
CPT/HCPCS: 36415; 71045; 80053; 82803; 83605; 83880; 84145; 84484; 85025; 85730; 87040; 87502; 87634; 87635; 93005; 96365; 96366; 96375; 99284; J0456; J0696; J1100; J7050